=== PATIENT | male | born 1945 | race Caucasian/White ===

== ENCOUNTER 2024-09-20 08:33 | Inpatient (IN) | payer MEDICARE, SELFPAY ==
[2024-09-20] VITALS (102 sets, daily range): BP systolic 87–168; BP diastolic 50–135; PULSE 55–129; RESP 12–32; TEMP 36–37.1; O2SAT 83–100; BMI 22.1
--- NOTE | 2024-09-20 08:30 | DI.CT_ITS ---
Exam(s) CT ABDOMEN PELVIS CTA EXAM: CT ABDOMEN PELVIS CTA CLINICAL HISTORY: Post prandial abd pain, A-fib, ? mesenteric ischem. TECHNIQUE: Imaging Protocol: Axial CT angiography was performed with multi-slice acquisition and m ulti-planar and/or 3D reconstructions. CONTRAST MATERIAL: Intravenous: Omnipaque 350 Contrast volume:Approximately 40mL. Due to malfunctio n of the IV, a decreased amount of contrast was administered. The angiography phase of the examinati on is nondiagnostic as result. Oral: No COMPARISON: There are no priors for comparison. FINDINGS: ABDOMEN: Lung bases: There is mild pleural calcification posteriorly in the right hemithorax. No pulmonary no dules are seen in the lung bases. Liver: Normal density. No measurable mass. Portal, Superior Mesenteric, and Splenic Veins: There is suboptimal opacification. Gallbladder and Biliary Tract: No radiodense calculus or dilation. Pancreas: Normal density, no abnormal calcifications or inflammatory process. Spleen: There is a subtle area of decreased attenuation in the anterior aspect of the spleen. This m ay represent a cyst or hemangioma. Adrenals: No masses seen. Kidneys: Normal size, contour and axis. No radiodense stones or obstructive uropathy. No masses seen. Aorta: Atherosclerotic calcification is seen. No aneurysmal dilatation is seen. Bowel: There is concentric wall thickening in the proximal ascending colon measuring approximately 8 cm in length. The findings are suspicious for colorectal carcinoma. There is proximal cecal and small bowel dilatation consistent with obstruction. The distal colon is decompressed. There is no evidence of appendicitis. There is no evidence of pneumatosis. No portal venous gas is identified. Peritoneal Cavity: There is a tiny amount of free fluid in the pelvis. No free air. Lymph Nodes: Within normal limits. Bones: Within normal limits for the patient's age. Soft Tissues: There is a small fat containing left inguinal hernia. PELVIS: Bladder: Symmetric distention, no gross wall thickening. Reproductive Organs: The prostate gland appears mildly enlarged. Lymph Nodes: Within normal limits. Bones: Within normal limits. IMPRESSION: 1. The angiography portion of the examination was nondiagnostic secondary to bolus amounts and timing . 2. No abdominal aortic aneurysm. 3. 8 cm long concentric mass in the ascending colon most concerning for colorectal carcinoma. There is resultant obstruction present. 4. No evidence of pneumatosis or portal venous gas. 5. Findings were discussed with Dr. Harman on 09/20/2024. RADIATION DOSE DELIVERED: 484.24mGy.cm Total DLP DATA REPOSITORY: All CT scans at this facility are submitted to the National Radiology Data Registry (NRDR) Dose Index Registry (DIR) with the [employer] (A[employer]). RADIATION OPTIMIZATION: All CT scans at this facility use at least one of these dose optimization te chniques: automated exposure control; mA and/or kV adjustment per patient size (includes targeted exa ms where dose is matched to clinical indication); or iterative reconstruction.
--- NOTE | 2024-09-20 08:30 | RT.EKG_ITS ---
APPROVED REPORT Exam: Resting ECG Reason for Exam: Abd Pain Patient Location: E HR:110 bpm ECG Measurements Heart Rate 110 AXIS MT [id number] P [id number] QRSd 82 QRS 77 QT 344 T 19 QTc 466 Conclusion Atrial fibrillation, rate 110 No interval abnormalities No STEMI No priors available for comparison
--- NOTE | 2024-09-20 08:50 | ED.GENADUL_ITS ---
Discharge Plan Disposition Patient Disposition: Admit to [facility] Condition: Fair Discharge Details Chief Complaint: Abd Prob Clinical Impression: Bowel obstruction, Colonic mass Attending Provider: Carlin Mabry Primary Care Provider: None,None ED Provider: Viviana Wilkerson General Mode of arrival: EMS . Date/Time Provider Initiated Documentation: 09/20/24 08:39 . Limitations to Documentation: no limitations . Information obtained by: patient, EMS and old records reviewed . HPI Narrative: HPI: This is an 79-year-old male patient without significant past medical history, has not been to a physician in many years, takes no medications presenting for evaluation of abdominal pain. Reports that he has had abdominal pain intermittently for several years, but feels that it is worsened over the past few months. He notices that it is typically located in his lower abdomen, but when he eats he feels it up high. He has lost 20 to 30 pounds over the last few years. Reports that he is intermittently constipated and has diarrhea, last bowel movement approximately 1 week ago. Has not tried any medications for management of the symptoms. Endorses nausea but no vomiting, feels some burning urination. EMS noted the patient to be mildly tachycardic with an atrial fibrillation appreciated on telemetry, the patient does not have a history of same and does not take any blood thinning medications. He was otherwise hemodynamically appropriate during his transport. Exam: Gen: Awake and alert, in no apparent distress HEENT: Non-icteric sclera Neck: Supple Lungs: No apparent respiratory distress, normal respiratory effort. Lung sounds clear and equal CV: Appears well perfused, heart with irregularly irregular rhythm, no murmurs auscultated Abdomen: Non-distended, soft, non-tender to palpation without rigidity, rebound, or guarding. MSK: Moves 4 extremities without apparent limitation in ROM. No peripheral edema Skin: Visualized skin without rashes, cyanosis. Neuro: Normal Gait, no obvious focal deficits or facial asymmetry. Speaks in full, clear sentences. Psych: Appropriate for situation. MDM: This is a an 79-year-old male patient presenting for evaluation of abdominal pain. Differential includes but is not limited to gastroenteritis, gastritis/PUD, pancreatitis, hepatitis, cholecystitis, appendicitis, diverticulitis, bowel obstruction, mesenteric ischemia, aortic pathology. Also considered cardiac abnormalities including dysrhythmia such as this patient's atrial fibrillation. Considered metabolic electrolyte derangements, kidney injury. We obtained an EKG which I reviewed, which shows a atrial fibrillation with rapid ventricular response rate but no evidence of ischemia, interval abnormality or ectopy. We will obtain laboratory studies to include CBC, CMP, magnesium, lipase, lactate, and urinalysis. I will obtain a CTA abdomen and pe lvis. At this time the patient declines medications for pain or nausea. ED Course: I independently interpreted the laboratory studies, which show no significant leukocytosis or thrombocytopenia. The patient does have a microcytic anemia to 11.6 without priors available for comparison the chemistry panel is without evidence of electrolyte abnormality, kidney dysfunction, or liver injury. Troponin negative, lipase low, lactate 1.9. CT scan reviewed by myself and discussed with the radiologist, shows an ascending colonic mass concerning for malignancy, with associated obstruction. No evidence of pneumatosis or perforation, mesenteric ischemia scan unfortunately unable to be obtained due to contrast timing. I discussed the case with the general surgeon, who recommends NG tube placement, and admission for operative intervention. I made the patient n.p.o. and informed him of the findings and plan, he was transferred to the care of the general surgery team and remained hemodynamically appropriate while under my care. Viviana Wilkerson MD Related Data Home Medications ?Medication ?Instructions ?Recorded ?Confirmed Unknown [No Known Home Meds] 09/20/24 09/20/24 General Stated Complaint: Abd Prob SHAQ: 3 Course Vital Signs Vital signs: Vital Signs Temperature 36.1 C L 09/20/24 08:38 Pulse 112 H 09/20/24 08:38 Respiratory Rate 20 09/20/24 08:38 Blood Pressure 139/89 09/20/24 08:38 Pulse Oximetry 100 09/20/24 08:38 Temperature 36.2 C L 09/20/24 08:42 Temperature Source Oral 09/20/24 08:42 Pulse 102 H 09/20/24 08:42 Respiratory Rate 18 09/20/24 08:42 Blood Pressure 139/89 09/20/24 08:38 Blood Pressure Position Sitting 09/20/24 08:38 Pulse Oximetry 100 09/20/24 08:42 Oxygen Delivery Method Room Air 09/20/24 08:42 Oxygen Flow Rate 0 09/20/24 08:38 Pain Level 8 09/20/24 08:42 Comment no meds 09/20/24 08:38 Medical Decision Making Quality:SDOH Health Related Social Needs: No Data to Display PFSH All Active Problems (Updated 09/20/24 @ 14:06 by Viviana Wilkerson MD) Colonic mass (Acute) Bowel obstruction (Acute) Social History Smoking/Tobacco Use Status: Never Smoking risk assessment performed?: Yes Alcohol Intake: never Drug use: Never Substance use type: does not use Housing: house Do you feel safe at home: Yes Do you feel safe in your relationship?: Yes
[2024-09-20 09:04] LABS: Lactate 1.9 mmol/L (<or=2.0)
[2024-09-20 09:06] LABS: Abs Immature Grans 0.03 10^3/uL (0.0-0.06); Absolute Basophil Count 0.02 10^3/uL (0.0-0.2); Absolute Eosinophil Count 0.02 10^3/uL (0.0-0.7); Absolute Lymphocyte Count 1.02 10^3/uL (1.2-3.4); Absolute Neutrophil Count 4.44 10^3/uL (1.2-6.7); Basophils % 0.3 %; Eosinophils % 0.3 %; HCT 36.1 % (40.0-50.0); HGB 11.6 g/dL (13.5-17.5); Immature Grans % 0.5 %; Lymphocytes % 16.6 %; MCHC 32.1 % (32.0-36.0); MCV 75 fL (80-95); MPV 9.7 fL (8.0-11.0); Monocytes % 9.8 %; Neutrophils % 72.5 %; Platelet Count 280 10^3/uL (130-400); RBC 4.83 10^6/uL (4.36-5.78); RDW 22.2 % (11.8-14.1); RDW-SD 58.9 fL; WBC 6.13 10^3/uL (4.4-10.8)
[2024-09-20 09:16] LABS: INR 1.1 (0.9-1.1); Prothrombin Time 10.7 sec (9.1-11.1)
[2024-09-20 09:23] LABS: Anisocytosis 2+; Diff Comment RBC Morph Reviewed; Poikilocytes 2+
[2024-09-20 09:26] LABS: ALT 20 U/L (16-63); AST 22 U/L (15-37); Albumin 3.3 g/dL (3.4-5.0); Alkaline Phosphatase 103 U/L (46-116); Anion Gap 10.2 mmol/L (3-11); BUN 16 mg/dL (7-18); Bilirubin, Total 0.5 mg/dL (0.2-1.0); CO2 21.8 mmol/L (21.0-32.0); CREATININE 0.9 mg/dL (0.70-1.30); Calcium 9.7 mg/dL (8.5-10.1); Chloride 102 mmol/L (98-107); Estimated GFR 86.34 (mL/min/1.73m2); Glucose 114 mg/dL (74-106); Lipase 35 U/L (<78); Potassium 4.1 mmol/L (3.5-5.1); Sodium 134 mmol/L (136-145); Total Protein 6.7 g/dL (6.4-8.2); Troponin I 9 ng/L (<or=76)
[2024-09-20 10:20] LABS: Troponin I 7 ng/L (<or=76)
[2024-09-20] MEDS: Omnipaque 350 MG/ML 100 ML BTL IJ (10:30)
[2024-09-20] MEDS: Normal Saline - Diluent 50 ML VIAL IJ (10:33)
--- NOTE | 2024-09-20 11:36 | ANES.PREOP_ITS ---
General Info Date of Service Date Performed: 09/20/24 Height: 5 ft 7 in Weight: 64.1 kg Body Mass Index (BMI): 22.1 Meds Allergies and Home Medications Home Medication ?Medication ?Instructions ?Recorded Unknown [No Known Home Meds] 09/20/24 Current Visit Medications: Current Medications Generic Name Dose Route Start Last Admin Trade Name Freq PRN Reason Stop Dose Admin IV Miscellaneous Supplies 1 each 09/20/24 08:45 Iv Access-Emergency Dept IV DIRECTED ALEXEI Iohexol 100 ml 09/20/24 10:30 09/20/24 10:30 Omnipaque 350 Mg/Ml 100 Ml Btl IJ 10/20/24 23:59 100 ml DIRECTED ALEXEI Administration Sodium Chloride 0 ml 09/20/24 08:39 Normal Saline Flush 10 Ml Syr IVP PRN PRN Sodium Chloride 0 ml 09/20/24 20:00 Normal Saline Flush 10 Ml Syr IVP BID ALEXEI Sodium Chloride 0 ml 09/20/24 08:39 Normal Saline 10 Ml Vial IJ DIRECTED PRN Sodium Chloride 50 ml 09/20/24 10:45 09/20/24 10:33 Normal Saline - Diluent 50 Ml Vial IJ 50 ml .FOR DI USE ALEXEI Administration PFSH Tobacco Smoking/Tobacco Use Status: Never Alcohol Alcohol Intake: never Substance Use Substance use: Never Substance use type: does not use Vital Signs and Lab Results Vital Signs Most Recent Vital Signs in EMR: Most Recent Vital Signs Temp Pulse Resp BP Pulse Ox 36.2 C L 94 H 19 128/77 97 09/20/24 08:42 09/20/24 09:50 09/20/24 09:50 09/20/24 09:46 09/20/24 09:50 Lab Results 09/20/24 08:52 09/20/24 08:52 Blood Type / Crossmatch: 2 Antibody Screen Pending 09/20/24 Complete Blood Count: 2 White Blood Count 6.13 10^3/uL (4.4-10.8) 09/20/24 08:52 Red Blood Count 4.83 10^6/uL (4.36-5.78) 09/20/24 08:52 Hemoglobin 11.6 g/dL (13.5-17.5) L 09/20/24 08:52 Hematocrit 36.1 % (40.0-50.0) L 09/20/24 08:52 Platelet Count 280 10^3/uL (130-400) 09/20/24 08:52 Venous Blood Lactate 1.9 mmol/L (<or=2.0) 09/20/24 08:52 Complete Metabolic Panel: 2 Sodium 134 mmol/L (136-145) L 09/20/24 08:52 Potassium 4.1 mmol/L (3.5-5.1) 09/20/24 08:52 Chloride 102 mmol/L (98-107) 09/20/24 08:52 Carbon Dioxide 21.8 mmol/L (21.0-32.0) 09/20/24 08:52 BUN 16 mg/dL (7-18) 09/20/24 08:52 Creatinine 0.9 mg/dL (0.70-1.30) 09/20/24 08:52 Est GFR (CKD-EPI 2020) 86.34 (mL/min/1.73m2) 09/20/24 08:52 Magnesium 2.0 mg/dL 09/20/24 08:52 Calcium 9.7 mg/dL (8.5-10.1) 09/20/24 08:52 Albumin 3.3 g/dL (3.4-5.0) L 09/20/24 08:52 Glucose 114 mg/dL (74-106) H 09/20/24 08:52 Liver Function Panel: 2 Alanine Aminotransferase (ALT/SGPT) 20 U/L (16-63) 09/20/24 08: 52 Aspartate Amino Transf (AST/SGOT) 22 U/L (15-37) 09/20/24 08:52 Coagulation Panel: 2 INR International Normalized Ratio 1.1 (0.9-1.1) 09/20/24 08:5 2 Prothrombin Time 10.7 sec (9.1-11.1) 09/20/24 08:52 Cardiac Panel: 2 Troponin I 7 ng/L (<or=76) 09/20/24 Arterial Blood Gas: 2 No Data to Display Venous Blood Gas: 2 No Data to Display Pancreas Panel: 2 Lipase 35 U/L (<78) 09/20/24 08:52 Thyroid Panel: 2 No Data to Display Infectious Disease: 2 No Data to Display Blood Cultures: 2 No Data to Display Toxicology Panel: 2 No Data to Display Anesthesia Assessment and Plan Anesthesia History Personal History: No History of Anesthesia Complications Family History: No Family History of Anesthesia Complications Exercise Tolerance Exercise Tolerance: Metabolic Equivalents>4 Cardiac & Pulmonary Exam Cardiac Exam: Normal S1/S2 Heart Sounds Pulmonary Exam: Clear Bilateral Breath Sounds Implantable Cardiac Device Does patient have a Pacemaker or an ICD?: No Airway Exam Known Difficult Airway: No Mallampati Class: 2 Mouth Opening: Normal (> 3cm) Thyromental Distance: Greater than 3 cm Neck Range of Motion: Limited ROM Neck Circumference: Normal Teeth Condition: Generalized Poor Dentition and Loose or Chipped ASA Classification ASA Score: ASA 2 Emergency Case?: Yes NPO Status NPO Status: Full Stomach Anesthesia Plan Resuscitation Status: Full Code Anesthesia Technique: General Anesthesia Airway Planned: Endotracheal Tube Pain Management: Surgeon and patient request nerve block (rescue abd wall block. ) Monitors Used: Standard Monitors Preoperative Comments:: 79 yo male for exp laparoscopy/laparotomy. Sig PMHx: denies. Does not seek medical care routinely. States that he is in functionally good condition, can go up and down stairs without issues/chest pain/shortness of breath. EKG: AFib. Discussed plan for GAETT, +/- rescue regional anesthesia.
--- NOTE | 2024-09-20 13:12 | W.PM.HP.N ---
Date of service: 09/20/24 Time of Service: 13:12 Assessment and Plan Assessment and plan (1) Bowel obstruction: Status: Acute Assessment and plan: Jitendra and I had a honest discussion about his overall condition, and the findings of the CT scan, and concern for colon cancer. He is very clear that he would not pursue any type of chemotherapy if this was cancer. His primary interest is in palliative treatments to resolve his abdominal pain and the symptoms associated with his obstruction. I explained to him that the simplest option would be a diverting ileostomy with permanent stoma. Obviously has some major reservations about a stoma and would prefer to avoid that if at all possible. I did explain that that would be the simplest treatment for his obstruction, and the most efficient option to preserve quality of life after surgery. But I also explained that if conditions are favorable, and I can resect or bypass the tumor and avoid a stoma, then that might be a possibility. But he does understand that a stoma is a very real possibility in this situation. We reviewed multiple surgical scenarios in detail, and I will try to be as thoughtful as possible regarding his overall wishes, would I made clear to him that my primary intent is to relieve the symptoms of his obstruction and preserve as many options for treatments, or end-of-life treatments in the most humane way possible. History of Present Illness History of Present Illness Chief Complaint: Abdominal pain Narrative: Jitendra is 79 years old. He comes to the emergency department with increasing abdominal pain over the past 2 weeks. More recently, has had total loss of appetite, and sensation of early satiety. He does not recall having any bowel movements or passing any flatus over the past 2 days or so. His past medical history unknown as he does not follow-up with any primary care physicians. In the emergency department, he was found to have a microcytic anemia, and a tender distended abdomen. He underwent a CT scan that demonstrated complete bowel obstruction with dilated small intestine, and concerns for an obstructing ascending colon mass with features concerning for colon cancer. He tells me he had a tonsillectomy as a child, but no other surgeries. He is not aware of any allergies. Family history includes a brother with schizophrenia Review of Systems Constitutional Constitutional: Denies fever(s), Reports lethargy, Reports poor appetite, Reports weakness and Reports weight loss Eyes Eyes: Reports system reviewed and no additional complaints, except as documented ENT Ears, Nose, Mouth, and Throat: Reports system reviewed and no additional complaints, except as documented Cardiovascular Cardiovascular: Denies chest pain and Denies dyspnea Respiratory Respiratory: Denies chest congestion, Denies cough and Denies dyspnea Gastrointestinal Gastrointestinal: Reports abdominal pain, Denies belching, Reports bloating, Reports early satiety, Denies nausea and Denies vomiting Genitourinary Genitourinary: Reports system reviewed and no additional complaints, except as documented Neurologic Neurologic: Reports system reviewed and no additional complaints, except as documented and Reports weakness Hematologic/Lymphatic Hematologic/Lymphatic: Denies easy bleeding and Denies easy bruising PFSH All Active Problems (Updated 09/20/24 @ 13:17 by Carlin Mabry MD) Bowel obstruction (Acute) Social History Smoking/Tobacco Use Status: Never Smoking risk assessment performed?: Yes Alcohol Intake: never Drug use: Never Substance use type: does not use Housing: house Do you feel safe at home: Yes Do you feel safe in your relationship?: Yes Meds Allergies and Home Medications Home Medications ?Medication ?Instructions ?Recorded ?Confirmed ?Type Unknown [No Known Home Meds] 09/20/24 09/20/24 History Exam Const General: cooperative, frail appearing and ill appearing Nutritional Appearance: malnourished Orientation: alert, awake and oriented x3 HENMT Head: normal to inspection Resp Effort & Inspection: normal respiratory effort Auscultation: clear to auscultation bilaterally Cardio Jugular venous pressure: no JVD Rhythm: other (Atrial fibrillation) Heart Sounds: S1 normal and S2 normal GI Inspection: distended Palpation: no guarding and no hernias Percussion: tympanic to percussion Auscultation: abnormal bowel sounds Extrem Right lower extremity: no cyanosis and no edema Left lower extremity: no cyanosis and no edema Results Imaging Abdomen CT scan report/results: report reviewed and image reviewed CT scan - pelvis: report reviewed and image reviewed Labs 09/20/24 08:52 09/20/24 08:52 Labs: Laboratory Results - last 24 hr 09/20/24 09/20/24 09/20/24 08:52 09:52 11:40 WBC 6.13 RBC 4.83 Hgb 11.6 L Hct 36.1 L MCV 75 L MCH 24.0 L MCHC 32.1 RDW 22.2 H Plt Count 280 MPV 9.7 Immature Gran % 0.5 Neutrophils % 72.5 Lymphocytes % 16.6 Monocytes % 9.8 Eosinophils % 0.3 Basophils % 0.3 Nucleated RBC % 0.0 Absolute Neutrophils 4.44 Absolute Lymphocytes 1.02 L Absolute Monocytes 0.60 Absolute Eosinophils 0.02 Absolute Basophils 0.02 RBC Morphology See Below Poikilocytosis 2+ Anisocytosis 2+ PT 10.7 INR 1.1 VBG Lactate 1.9 Sodium 134 L Potassium 4.1 Chloride 102 Carbon Dioxide 21.8 Anion Gap 10.2 BUN 16 Creatinine 0.9 Est GFR (CKD-EPI 2020) 86.34 Glucose 114 H Calcium 9.7 Magnesium 2.0 Total Bilirubin 0.5 AST 22 ALT 20 Alkaline Phosphatase 103 Troponin I 9 7 Cancelled Total Protein 6.7 Albumin 3.3 L Lipase 35 Last Vital Signs Temp 97.2 F L 09/20/24 08:42 Pulse 94 H 09/20/24 09:50 Resp 19 09/20/24 09:50 BP 128/77 09/20/24 09:46 Pulse Ox 97 09/20/24 09:50 Time Spent Time spent with Patient: 55-74 minutes Time was spent: preparing to see the patient(eg.review tests), obtaining and/or reviewing separately otained hiistory, referring, communicating with other health continuum of care manager, indepentently interpreting results, counseling the patient and care coordination
[2024-09-20] MEDS: Benzocaine 20% 60 ML CAN (13:15)
[2024-09-20] MEDS: Lactated Ringers 1,000 ML 30 ML IV ×2 (13:31→17:05)
[2024-09-20] MEDS: Heparin 5,000 UNITS/ML VIAL 5000 UNITS (13:50)
[2024-09-20] MEDS: Bupivacaine 0.25% Pres-Free 30 ML VIAL (14:40)
[2024-09-20] MEDS: Bupivacaine LIPOSOME/PF 133 MG/10 ML VIAL IJ (14:40)
--- NOTE | 2024-09-20 15:30 | BOWEL_PTH ---
PATIENT: Jitendra Madera LOC: U#:[id number] AGE/SX: 79/M ROOM: RE09/20/[address]: Carlin Mabry MD : 1945 BED: A DIS: 10/02/2024 SPEC #: [id number] RECD: 09/20/24 18:23 STATUS: SOUConrad REQ #: [id number] MARJ: 09/20/24 15:[address]: Carlin Mabry DEPT: Surgical Specimen RECD BY: Tish Lomeli ENTERED: 09/20/24 18:23 SP TYPE: Bowel OTHR DR: None Tissues: 1 - BOWEL RESECTION(OTHER) Procedures: IMMUNOPEROXIDASE STAIN GROSS AND MICRO LEVEL 6 Comments: [id number]
--- NOTE | 2024-09-20 16:32 | W.PM.OP ---
Operative Note Operative Note PRE-OP DIAGNOSIS: Bowel obstruction POST-OP DIAGNOSIS: other (Large bowel obstruction concerning for colon cancer) PROCEDURE: Diagnostic laparoscopy, laparotomy with right hemicolectomy SURGEON: Carlin Mabry ESTHETICIAN AND MANAGER MEDICAL SPA: Familia Perez Refer to Anesthesia Record ESTIMATED BLOOD LOSS: 75 PATHOLOGY: other (Ascending colon) COMPLICATIONS: None Patient was transported to: PACU Patient's condition: stable Indications: Jitendra is an 79-year-old male comes to the hospital with abdominal pain. CT scan was concerning for complete bowel obstruction with a possible mass in the ascending colon Findings: Chronically dilated small bowel consistent with complete small bowel obstruction. Mass in the ascending colon Procedure Description: I met with Jitendra in the preoperative area, we reviewed the plan for surgery. He was able to provide informed consent. We moved back to the operating room, and he was assisted onto the OR table. General endotracheal anesthesia was initiated. The previously placed nasogastric tube was exchanged for a larger tube, and a Figueroa urinary catheter was inserted in the usual aseptic manner. I then prepped and draped the anterior abdominal wall. I made a small midline incision above the umbilicus and dissected down to the fascia which was grasped with Bina clamps. The fascia was incised, and a 5 mm optical viewing port was inserted into the peritoneal cavity. 5 mm 30 degree scope was introduced, pneumoperitoneum was established. Visualization was extremely limited by the massively dilated small bowel, which precluded definitive diagnostic laparoscopy. However, I was able to visualize some of the right lobe of the liver, and I saw no evidence of any obvious pathology. Similarly, I was able to see the left lobe as well. And this grossly appeared normal. A limited view of the peritoneal wall did not seem consistent with any carcinomatosis, therefore elected to terminate the laparoscopic portion, proceed with definitive exploratory laparotomy with intent for therapeutic operation. I removed a 5 mm port and made a midline abdominal incision. The majority of the small bowel was eviscerated, but despite this being out of the peritoneal cavity, it was still nearly impossible to safely see all the critical structures. I was able to palpate what felt like a mass in the area of the cecum and the ascending colon, which seem consistent with the CT scan, and certainly appeared to be obstructing with regards to the dilation of the small intestine. At that point, it was clear that I needed to decompress the small intestine to proceed with the operation. I was able to palpate the nasogastric tube in the appropriate location, and this was affixed in place. Since the source of the pathology seems to be in the cecum and the ascending colon, I selected an area in the terminal ileum to create an enterotomy. A pursestring suture was placed on the antimesenteric border, and in a controlled fashion, small enterotomy was made. Suction was introduced into the terminal ileum, and the succus was evacuated. With his much control over any spillage is possible, and then milked the entire length of the small intestine to evacuate all of the retained succus. The suction was removed, the pursestring suture was used to close the enterotomy. Once the small intestine was decompressed, it was clear that there was mass in the ascending colon causing the obstruction. I mobilized the terminal ileum and the ascending colon. Although the lumen of the ascending colon seem to be completely obstructed, I did not see any obvious signs of perforation, and as the ascending colon was mobilized towards the midline, the tumor appeared to be contained to the wall of large intestine, and perhaps just a little bit of the mesentery. The small bowel was mobilized up around the hepatic flexure to the mid transverse. Superior mesenteric artery was palpated, into position along the transverse colon was selected as the distal margin. This was divided with a MARTHA stapler. Similarly, the terminal ileum was divided to include the previously mentioned enterotomy and the specimen. The mesentery was then divided with sequential fires of the LigaSure. The right colic artery was suture-ligated. Once the specimen was divided free, it was passed off the field for preservation in formalin and definitive pathologic diagnosis. Surgical bed was irrigated. It was all hemostatic. The right ureter was visualized well within the retroperitoneum. Next, the small bowel was gently delivered back to its normal orientation, and the ileum was brought up to the mid transverse colon. It appeared that a [id number] antiperistaltic anastomosis would be most favorable with regards to his anatomy. The antimesenteric borders of the small intestine and the transverse colon were aligned and affixed in place with suture. I created a small enterotomy and colotomy, and a MARTHA stapler was used to create the ileocolostomy. The anastomosis appeared widely patent, and I saw no evidence of any obvious bleeding. The common ileal-colotomy was then closed with a running 3-0 PDS suture on the mucosal line, and imbricated with interrupted silk stitches. Again, the field was irrigated. I saw no bleeding. The small bowel appeared appropriately oriented with regards to the mesentery. I then performed bilateral tap blocks using local anesthetic with Exparel. I then closed the fascia with running 2-0 PDS suture. Skin and subcutaneous tissues were irrigated. Skin was reapproximated with surgical stapler, and a negative pressure rebekah dressing was used. Date of Procedure: 09/20/24
--- NOTE | 2024-09-20 16:57 | W.ANESPOSTOP ---
Postoperative Evaluation Date, Time and Location Date Performed: 09/20/24 Time Performed: 16:57 Patient Location: PACU Vital Signs Most Recent Imported Vital Signs: Most Recent Vital Signs Temp Pulse Resp BP Pulse Ox 36.5 C 67 20 104/65 97 09/20/24 16:51 09/20/24 16:53 09/20/24 16:53 09/20/24 16:51 09/20/24 16:53 Pain Score Most Recent Pain Score: Most Recent Pain Score Pain Level 8 09/20/24 08:42 Assessment Mental Status: Arousable with meaningful communication Airway and Respiratory Function: Patent airway with normal (patient baseline) respiratory exam Cardiovascular Function: Hemodynamically Stable Hydration Status: Adequately Hydrated Nausea & Vomiting: No Nausea or Vomiting Pain: Pain is tolerable per patient Peripheral Nerve Block: Patient did not receive a nerve block
[2024-09-20] MEDS: HYDROmorphone 2 MG/ML SYR 1 MG IVP ×2 (18:17→23:36)
[2024-09-20] MEDS: Lactated Ringers 1,000 ML 75 ML IV (22:03)
[2024-09-20] MEDS: ACETAMINOPHEN 1,000 MG/100 ML BAG 400 MG IVPB (22:03)
[2024-09-20] MEDS: Heparin 5,000 UNITS/ML VIAL 5000 UNITS SC (22:04)
[2024-09-21] VITALS (13 sets, daily range): BP systolic 80–119; BP diastolic 49–82; PULSE 67–118; RESP 16–20; TEMP 36.5–37.2; O2SAT 95–99
[2024-09-21] MEDS: Metoprolol 5 MG/5 ML VIAL 2.5 MG IVP ×2 (00:24→13:20)
[2024-09-21 06:06] LABS: HCT 35.8 % (40.0-50.0); HGB 11.3 g/dL (13.5-17.5); MCH 23.9 pg (27.0-33.0); MCHC 31.6 % (32.0-36.0); Platelet Count 237 10^3/uL (130-400); RBC 4.73 10^6/uL (4.36-5.78); RDW-SD 61.2 fL; WBC 13.77 10^3/uL (4.4-10.8)
[2024-09-21 06:14] LABS: Anion Gap 8.8 mmol/L (3-11); BUN 15 mg/dL (7-18); CO2 25.2 mmol/L (21.0-32.0); CREATININE 0.9 mg/dL (0.70-1.30); Calcium 8.6 mg/dL (8.5-10.1); Chloride 106 mmol/L (98-107); Estimated GFR 86.34 (mL/min/1.73m2); Glucose 119 mg/dL (74-106); Potassium 4.8 mmol/L (3.5-5.1); Sodium 140 mmol/L (136-145)
[2024-09-21 06:52] LABS: MCV 76 fL (80-95)
[2024-09-21 06:54] LABS: RDW 22.5 % (11.8-14.1)
[2024-09-21] MEDS: ACETAMINOPHEN 1,000 MG/100 ML BAG 400 MG IVPB ×3 (07:22→21:32)
--- NOTE | 2024-09-21 09:01 | PDOC.CMIN ---
Date of service: 09/21/24 Time of Service: 09:01 Care Management Initial Assmt Initial Assessment Reason for Hospitalization: Bowel Obstruction Functional Status/Living Situation Patient Presentation: Jitendra was sitting up in a chair when CM met with him. He was pale and had a nasogastric tube in place, but willingly engaged with CM. Jitendra informed CM that he had surgery yesterday for a bowel obstruction. A tumor was removed and has been sent to pathology for further studies to determine if it is a malignancy. Jitendra stated that his pain is well controlled. He rated it as a 1-2/10 and stated that the worst it has been was about a 5/10. Jitendra lives alone in a single family home in [facility]. He has one daughter however he reported that they are not close. Jitendra described himself as an introvert who keeps to himself. He has no close fiends or relatives in the area. 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 He is independent at baseline and does not receive any community services. In discussing his plan of care, Jitendra informed that if he does have cancer, he does not want chemotherapy. He stated that at his age (79) it would not improve the quality of his life. He also stated that if he has metastatic disease he would consider pursuing Act 39. Town of Residence: [place] Resides with: Alone Natural Supports: sister Cassi Employment Status: Retired Instrumental Activities of Daily Living (ADLs): Independent Medications Medication Management: No Issues/Barriers identified Physical Functioning/Mobility Assistive Device: none Advance Directives Advance Directives: Do you have an Advance Directive: AD On File at [facility]: N 09/20/24 08:27 Date Asked 09/20/24 09/20/24 08:35 AD Date Reviewed COLST On File at [facility] COLST Date Scanned Code Status Resuscitation Status Full Code Portal Pt does not currently have a portal and education provided: Yes Insurance Coverage/Financial Issues Insurance: medicare [facility] Care Team Visit Care Team Role Provider Type None None Primary Care Provider NON-[facility] STAFF PHYSICIAN Viviana Wilkerson MD Emergency Provider [facility] STAFF PHYSICIAN Carlin Mabry MD Admit Provider [facility] STAFF PHYSICIAN Attending Provider Discharge Potential Discharge Needs: Surgical F/U Appt Anticipated Barriers to Discharge: None Identified Patient/Family Education Needs: Review discharge instructions, discuss Ask Me Three Transportation: Private vehicle Plan: Anticipate Jitendra will return home when discharged , possibly with new home health services, depending on his surgery and the course of his illness. He may benefit from a Palliative Care consult. He will follow up with surgery and his plan of care and transport with family. CM will follow and continue to assess for discharge needs. Social Determinants of Health Screening Will the Patient Participate in the Screening?: Unable to obtain Do you worry about having a steady place to live?: no PFSH All Active Problems (Updated 09/20/24 @ 14:06 by Viviana Wilkerson MD) Colonic mass (Acute) Bowel obstruction (Acute) Social History Smoking/Tobacco Use Status: Never Smoking risk assessment performed?: Yes Alcohol Intake: never Drug use: Never Substance use type: does not use Housing: house Do you feel safe at home: Yes Do you feel safe in your relationship?: Yes
[2024-09-21] MEDS: Heparin 5,000 UNITS/ML VIAL 5000 UNITS SC ×2 (09:39→20:28)
[2024-09-21] MEDS: Normal Saline Flush 10 ML SYR IVP ×4 (09:39→17:04)
[2024-09-21] MEDS: HYDROmorphone 2 MG/ML SYR 1 MG IVP ×3 (09:52→22:36)
--- NOTE | 2024-09-21 11:11 | PGE_ITS ---
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 Given the chronic dilation of his small bowel leading up to this my preference is to leave the nasogastric tube in place today, and see how that changes over the next day. And like to see him up to the chair moving around a little bit today. He is still in atrial fibrillation, but appears rate controlled. Will use metoprolol as best we can to help manage that. I will hold off on therapeutic anticoagulation at the moment given the extent of his operation, but I am op timistic that we could start that soon to help with stroke risk reduction. Subjective Subjective Interval history since last seen: Jitendra looks very good this morning. He says his pain is fairly well- controlled. He denies any nausea or vomiting. He has had no bowel movement or flatus yet. There is also not much coming out of the nasogastric tube. Exam GI Other: His abdomen is soft, and not at all distended. He does not have any major bowel sounds yet. Rachel dressing is fine. Objective Last Vital Signs Temp 97.9 F 09/21/24 10:40 Pulse 98 H 09/21/24 10:40 Resp 16 09/21/24 10:40 BP 99/59 L 09/21/24 08:21 Pulse Ox 95 09/21/24 08:21 Laboratory Results - last 24 hr 09/20/24 09/21/24 12:18 05:35 WBC 13.77 H RBC 4.73 Hgb 11.3 L Hct 35.8 L MCV 76 L MCH 23.9 L MCHC 31.6 L RDW 22.5 H Plt Count 237 MPV 10.0 Sodium 140 Potassium 4.8 Chloride 106 Carbon Dioxide 25.2 Anion Gap 8.8 BUN 15 Creatinine 0.9 Est GFR (CKD-EPI 2020) 86.34 Glucose 119 H Calcium 8.6 ABO/Rh O Positive Antibody Screen NEGATIVE Time Spent with Patient Time Spent with Patient: 25-34 minutes Time was spent: preparing to see the patient(eg.review tests), indepentently interpreting results and counseling the patient
[2024-09-21] MEDS: Lactated Ringers 1,000 ML 75 ML IV ×2 (11:35→21:32)
--- NOTE | 2024-09-21 14:00 | PHA.REVIEW2 ---
Pharmacy Admission Review Admission Clinical Review Admission Pharmacy Review: Bowel obstruction (Acute) No Known Allergies Allergy (Unverified 09/21/24 02:21) Resuscitation Status Full Code Height 5 ft 7 in Weight 64.1 kg Comments Comments/Follow Ups: Watch BP, HS, labs and for med changes (possible renal dose adjustments, IV to PO once pt is no longer NPO). Pharmacy Admission Review Renal Dosing Renal Dosing: BUN 15 mg/dL (7-18) 09/21/24 05:35 Creatinine 0.9 mg/dL (0.70-1.30) 09/21/24 05:35 Medications needing adjustments: Reviewed (Crcl ~59 mL/min current meds are okay) Anticoagulation Anticoagulation: Hgb 11.3 g/dL (13.5-17.5) L 09/21/24 05:35 Hct 35.8 % (40.0-50.0) L 09/21/24 05:35 Plt Count 237 10^3/uL (130-400) 09/21/24 05:35 INR 1.1 (0.9-1.1) 09/20/24 08:52 Creatinine 0.9 mg/dL (0.70-1.30) 09/21/24 05:35 DVT Prophylaxis: Reviewed Medications: Heparin Opiate Usage Evaluate Pain Scale/Pains Meds: Reviewed Scheduled Bowel Reg ordered if on Opiates?: No Relevant Labs Relevant Labs: Sodium 140 mmol/L (136-145) 09/21/24 05:35 Potassium 4.8 mmol/L (3.5-5.1) 09/21/24 05:35 Chloride 106 mmol/L (98-107) 09/21/24 05:35 Magnesium 2.0 mg/dL 09/20/24 08:52 Electrolytes, C-Reactive P, ESR: Reviewed DM Control DM Control: Glucose 119 mg/dL (74-106) H 09/21/24 05:35 DM Control: Reviewed Insulin Dosing, Diabetic Medication: no DM in medical history, no A1c on file Cardiac Review Cardiac Review: Troponin I Cancelled 09/20/24 11:40 BP, HR, EF%: Reviewed (BP has been normal to low today and HR normal to high) QTc Review QTc: Reviewed (QTc 466 on admission) IV to PO Switch IV Medications: Reviewed (pt is currently NPO) Home Meds Home Med List reviewed: Reviewed (no known home meds ) Current Meds Current Medication Order Review: Intervened (Discontinued PACU meds as the patient was no longer in the PACU.) Comments Comments/Follow Ups: Watch BP, HS, labs and for med changes (possible renal dose adjustments, IV to PO once pt is no longer NPO).
[2024-09-21 17:49] LABS: CEA 1.1 ng/mL (See Note)
[2024-09-21] MEDS: Lactated Ringers 1,000 ML 1000 ML IV (17:55)
[2024-09-22] VITALS (14 sets, daily range): BP systolic 97–114; BP diastolic 56–82; PULSE 63–126; RESP 20; TEMP 36.1–36.8; O2SAT 93–95
[2024-09-22] MEDS: ACETAMINOPHEN 1,000 MG/100 ML BAG 400 MG IVPB ×3 (05:49→21:46)
[2024-09-22] MEDS: HYDROmorphone 2 MG/ML SYR 1 MG IVP ×3 (05:50→17:28)
[2024-09-22 06:42] LABS: HCT 33.8 % (40.0-50.0); HGB 10.5 g/dL (13.5-17.5); MCHC 31.1 % (32.0-36.0); MCV 77 fL (80-95); MPV 10.5 fL (8.0-11.0); Platelet Count 194 10^3/uL (130-400); RBC 4.38 10^6/uL (4.36-5.78); RDW 23.2 % (11.8-14.1); RDW-SD 63.8 fL; WBC 10.13 10^3/uL (4.4-10.8)
[2024-09-22 06:54] LABS: Anion Gap 5.2 mmol/L (3-11); BUN 16 mg/dL (7-18); CO2 28.8 mmol/L (21.0-32.0); CREATININE 0.9 mg/dL (0.70-1.30); Calcium 8.7 mg/dL (8.5-10.1); Chloride 104 mmol/L (98-107); Estimated GFR 86.34 (mL/min/1.73m2); Glucose 83 mg/dL (74-106); Potassium 4.2 mmol/L (3.5-5.1); Sodium 138 mmol/L (136-145)
[2024-09-22] MEDS: Heparin 5,000 UNITS/ML VIAL 5000 UNITS SC ×2 (08:12→19:45)
[2024-09-22] MEDS: Normal Saline Flush 10 ML SYR IVP (08:12)
[2024-09-22] MEDS: Lactated Ringers 1,000 ML 75 ML IV ×2 (09:09→20:46)
[2024-09-22] MEDS: Metoprolol 5 MG/5 ML VIAL 2.5 MG IVP ×2 (11:48→17:34)
--- NOTE | 2024-09-22 12:45 | PDOC.CMPRO ---
Date of service: 09/22/24 Time of Service: 12:45 Care Management Progress Note Progress Note Text Progress Note Text: Jitendra is awake and lying in bed when CM met with him. He had just missed a call on his cell and asked CM for help finding his glasses. His glasses were located, no immediate concerns were identified and pt is advised CM will check back at a later time. Palliative consult is planned for this afternoon to discuss goals of care. Jitendra is s/p right hemicolectomy; he currently has a NG tube, Rachel drain and expected to be here through the weekend. CM will follow. Discharge Potential Discharge Needs: Consult Consult Services Needed: Palliative and Surgical F/U Appt Anticipated Barriers to Discharge: Medical Status Patient/Family Education Needs: Review discharge instructions, discuss Ask Me Three Transportation: Private vehicle Plan: Palliative Care Consult is pending to discuss goals of care due to presumed 'obstructing colon cancer'. Anticipate, Jitendra will return home when medically ready for discharge, possibly with new home health services, depending his goals of care and course of his illness. He will follow up with surgery and his plan of care and transport with family. CM will follow and continue to assess for discharge needs. Social Determinants of Health Screening Will the Patient Participate in the Screening?: Unable to obtain Do you worry about having a steady place to live?: no
--- NOTE | 2024-09-22 13:05 | NUR.NOTE ---
Documentation completed by Marianne Tarango, nursing staff development coordinator reviewed and in agreement. Christiana Jiménez, MSN, RNC-OB (clinical instructor)
--- NOTE | 2024-09-22 14:54 | W.PALLCONSUL ---
Date of service: 09/22/24 Time of Service: 14:54 History of Present Illness Narrative: Jitendra was seen in his hospital room. He presented to the ED via EMS for abdominal pain and was found to have an obstructing colon mass. He underwent R hemicolectomy 2 days ago. He currently has NG tube in place. He is NPO. He has pain r/t the surgery but different than the pain before. Palliative was consulted at his request. Reviewed what Palliative can offer. He does not have AD. He does not have a lot of people in his life. He prefers solitude. He has a younger brother, Mayito, who lives in [place] and has Schizophrenia. He keeps in touch with his brother. He clearly worries about Mayito's wellbeing. He has a sister, Cassi also lives in [place]. They were closer but Cassi gets mad at him and does not talk to him at times. He heard from Mayito that Cassi seems more forgetful. He worries about her ability to make decisions for him. Cassi was an RN. He has some neighbors but he does not know them well and feels they are also elderly. He cannot think of someone he would want to name to be his HCA. He lives alone in [place] [facility]. His house has been unfinished for years. He has to go downstairs to the basement to get water. His shower is also downstairs. He wishes to remain in his home. He does not want to go to SNF, even for rehab, he fears he would never be able to go home. He is open to working with PT. He is open to HH after discharge home. He will need RN and would also likely benefit from PT/OT/AIRPLANE CHARTER CLERK. COA may be helpful to him as well- there may be grants to help with getting systems to the living floor in his home so he does not have to go to the basement. Reviewed CODE STATUS. At this point, he thinks he wants attempts to restart his heart. Reviewed AD. He would like to look over the forms and complete in the near future. He is agreeable to Palliative f/u. Prior to this admission, he was experiencing bowel problems including diarrhea and constipation. He was only able to eat small amounts. He had severe abd pain every time he ate anything. He also had nausea but this has improved since the surgery. He lost about 20# over the last couple of months. He was getting weaker and having more difficulty getting around . Assessment and Plan Assessment and plan (1) Colonic mass: Status: Acute (2) Bowel obstruction: Status: Acute (3) Status post right hemicolectomy: Status: Acute (4) Advanced care planning/counseling discussion: Status: Acute (5) Palliative care patient: Status: Acute Assessment and plan: Jitendra is a very pleasant 79 year old man who presented to the ED with abdominal pain and weight loss and was found to have colon mass, now post R hemicolectomy with NG tube in place. He is clear that he does not intend to undergo cancer treatment if the Bx comes back positive for malignancy. He lives alone and does not have a lot of people in his life. He has kept to himself for many years. He has a sister who he is worried may be developing dementia and a brother with Schizophrenia. He has neighbors but does not know any of them well enough to have them be HCA. He is not sure he has anyone that he would name as HCA. He wants to do AD- he preferred to look over the AD first then go through it together. He wants to be a FULL CODE at this point. He does not want SNF. He is open to HH. He would benefit from RN/PT/OT/AIRPLANE CHARTER CLERK and COA referral. He is agreeable to continuing to work with Palliative. Palliative will continue to follow him while he is in the hospital and after discharge home. He will need HV. f/u next week inpatient or at home. Review of Systems Narrative: PER HPI PFSH All Active Problems (Updated 09/22/24 @ 16:32 by Desirae Philippe NP) Advanced care planning/counseling discussion (Acute) Palliative care patient (Acute) Status post right hemicolectomy (Acute) Colonic mass (Acute) Bowel obstruction (Acute) Social History Smoking/Tobacco Use Status: Never Smoking risk assessment performed?: Yes Alcohol Intake: never Drug use: Never Substance use type: does not use Housing: house Do you feel safe at home: Yes Do you feel safe in your relationship?: Yes Exam Narrative Exam Narrative: General: very pleasant, thin, elderly man, laying in the hospital bed with HOB elevated. He is awake, alert, oriented, open and talkative. HEENT: atraumatic, NG tube with dark drainage. Neck: supple Respiratory: respirations appear even and unlabored at rest. Ext: moves extremities freely. Results Last Vital Signs Temp 36.1 C L 09/22/24 07:19 Pulse 92 H 09/22/24 12:18 Resp 20 09/22/24 07:19 BP 103/74 09/22/24 12:18 Pulse Ox 98 09/21/24 19:26 Labs 09/22/24 05:48 09/22/24 05:48 Labs: Laboratory Results - last 24 hr 09/21/24 09/22/24 05:35 05:48 WBC 10.13 RBC 4.38 Hgb 10.5 L Hct 33.8 L MCV 77 L MCH 24.0 L MCHC 31.1 L RDW 23.2 H Plt Count 194 MPV 10.5 Sodium 138 Potassium 4.2 Chloride 104 Carbon Dioxide 28.8 Anion Gap 5.2 BUN 16 Creatinine 0.9 Est GFR (CKD-EPI 2020) 86.34 Glucose 83 Calcium 8.7 Carcinoembryonic Ag 1.1 Time Spent Time Spent with Patient Time Spent(min): 126
[2024-09-23] VITALS (13 sets, daily range): BP systolic 95–115; BP diastolic 55–76; PULSE 102–141; RESP 17–20; TEMP 36.5–36.9; O2SAT 93–98
[2024-09-23] MEDS: ACETAMINOPHEN 1,000 MG/100 ML BAG 400 MG IVPB ×2 (06:10→13:54)
[2024-09-23] MEDS: Heparin 5,000 UNITS/ML VIAL 5000 UNITS SC ×2 (09:04→22:38)
[2024-09-23] MEDS: Metoprolol 5 MG/5 ML VIAL 2.5 MG IVP ×3 (09:19→22:37)
--- NOTE | 2024-09-23 12:36 | PT.INIE ---
PT Notes Visit Reasons: Bowel Obstruction Inpatient Physical Therapy Evaluation Certification Period:? From ?? Through I certify the need for these services as being medically necessary and skilled as furnished under this plan of treatment while under my care. Please sign and return within 14 days if you agree with the plan of care listed below.? Thank you for this referral! ? Referring Physician? Date Referring Doctor:? PT Orders: PT CONSULT for Precautions: Patient Profile/Admitting Diagnosis:? The patient is a yo male adm on Past Medical History: Social History/Home Situation: Subjective: Objective: Mental Status: Patient is alert and oriented. Pain: Vital Signs: ROM/Strength: Upper extremities: Lower extremities: Sensation: Soft tissue/edema: Bed Mobility: Supine to sit Tranfers: Sit to stand Gait: Ambulated feet Balance: [facility] 6 clicks Basic Mobility Inpatient Short Form: Raw Score:? CMS Score: Informed Consent/Education:? Patient instructed in purpose of PT consult and plan of care and is agreeable Assessment:? Patient is a? year old male adm on for.? Patient presents with pain, decreased strength, decreased functional mobility, decreased balance and difficulty with ambulation. The patient would benefit from skilled inpatient services to improve these impairments to maximize function and safety. Patient is assessed as:? Low 96657?? Moderate 66867?? High 80255 complexity based on the following: History: Examination: see above Presentation: Stable and uncomplicated? Evolving clinical presentation? Unstable/unpredictable? Decision Making:? Low (0 history, 1-2 exam, stable/predictable, easy 20) Moderate (1-2 history, 2-3 exam, evolving, mod-30 mins) High (3-4 history, 4+ exam, unstable, challenging- 45 mins) Physical Therapy Goals: 1 week Able to get in/out of bed with supervision only. Able to perform sit to/from stand with supervision only. Able to walk feet with rolling walker with supervision only. Able to go up and down 2-3 steps with 1 rail with contact guard assist only. Independent with home exercise program Plan of Care/Treatment Plan: 1-2x/day, 7 days/week x 1 week. Plan of care has been reviewed with the PHYSICIAN NON INVASIVE CARDIOLOGIST providing the service under Physical Therapy direction. Initiate Physical Therapy intervention for strengthening, bed mobility, transfers, gait, stairs, balance training, use of assistive device. DISCHARGE RECOMMENDATIONS: Billing Charges: Treatment Units Time Duration Manual Therapy(35718) Hands-on techniques to modulate pain increase joint range of motion reduce or eliminate soft tissue swelling, inflammation, or restriction facilitate relaxation and improve contractile and non-contractile tissue extensibility ? ? Therapeutic Procedures (91732) Instruction in therapeutic exercises to develop strength and endurance, range of motion and flexibility. HEP instruction and review: Provided skilled instruction in proper exercise performance: Provided skilled manual cues to facilitate proper muscle recruitment and/or movement pattern Neurological Re-Education(94914) To improve balance, coordination, kinesthetic and proprioceptive sensations. ? ? Ultrasound(21585) To promote healing. ? ? Gait Training(52096) ? ? Therapeutic Activity(09328) Instruction in dynamic activities with one on one patient contact by the provider to improve functional performance as follows: ? ? Self Care Training(81250) ? ? E-Stim (Attended)(17998) ? ? Low IE(49866) Mod IE(02736) ? ? High IE(58075) ? ? Time Coded Treatment Time ? Total Treatment Time ? Informed consent Prior to the start and throughout the course of the examination and treatment, patient was made aware of the specifics and purpose of the physical assessment and treatment procedures. Appropriate draping procedures were utilized to protect modesty where applicable.
--- NOTE | 2024-09-23 14:58 | PT.INNT ---
Date of service: 09/23/24 Time of Service: 14:58 PT Notes Visit Reasons: Bowel Obstruction Attempted to see pt x 3 this p.m. Pt requested to post pone PT until tomorrow a.m. due to having several rounds of diarrhea this afternoon. Will return tomorrow to complete IE.
--- NOTE | 2024-09-23 15:36 | W.PM.PROGNOT ---
Date of Service Date of service: 09/22/24 Time of Service: 16:45 Assessment and Plan Assessment and plan (1) Status post right hemicolectomy: Status: Acute Assessment and plan: Jitendra looks very good, I think we can advance his diet to some liquids today and see how he tolerates that. We started having some discussion about his atrial fibrillation therapeutic anticoagulation. We can revisit this in the next day or 2. Subjective Subjective Interval history since last seen: Jitendra looks great today. He is more alert and interactive. He says his pain has been well-controlled. He feels a little dehydrated, and he is interested in drinking. He has had no flatus or bowel movement yet. Exam GI Other: Abdomen is soft, nondistended. He is not at all tender. Bandages clean Objective Last Vital Signs Temp 98.4 F 09/23/24 07:35 Pulse 141 H 09/23/24 13:54 Resp 20 09/23/24 07:35 BP 108/55 L 09/23/24 13:54 Pulse Ox 96 09/23/24 13:52 Time Spent with Patient Time Spent with Patient: <25 minutes Time was spent: preparing to see the patient(eg.review tests) and counseling the patient
[2024-09-23 15:42] LABS: HCT 31.5 % (40.0-50.0); HGB 10.1 g/dL (13.5-17.5); MCH 24.2 pg (27.0-33.0); MCHC 32.1 % (32.0-36.0); MCV 76 fL (80-95); MPV 9.7 fL (8.0-11.0); Platelet Count 196 10^3/uL (130-400); RBC 4.17 10^6/uL (4.36-5.78); RDW-SD 62.2 fL
--- NOTE | 2024-09-23 15:50 | W.PM.PROGNOT ---
Date of Service Date of service: 09/23/24 Time of Service: 15:51 Assessment and Plan Assessment and plan (1) Status post right hemicolectomy: Status: Acute Assessment and plan: I will discontinue the Figueroa catheter today, and he should work on ambulating in the hallway a little bit. Will consult physical therapy to help with mobility and strengthening. I will also advance his diet to regular food, and see how he does. Subjective Subjective Interval history since last seen: Jitendra was able to tolerate the clear liquids yesterday without any nausea or vomiting. His appetite is increased a little bit today. He did like to try some regular food. Still does not think he had much in the way of flatus. Exam GI Other: His abdomen is quite soft, nondistended. He is got good bowel sounds. Objective Last Vital Signs Temp 98.4 F 09/23/24 07:35 Pulse 141 H 09/23/24 13:54 Resp 20 09/23/24 07:35 BP 108/55 L 09/23/24 13:54 Pulse Ox 96 09/23/24 13:52 Time Spent with Patient Time Spent with Patient: 25-34 minutes Time was spent: preparing to see the patient(eg.review tests), ordering medications,tests, procedures and counseling the patient
[2024-09-23 15:55] LABS: Anion Gap 6.9 mmol/L (3-11); BUN 17 mg/dL (7-18); CO2 26.1 mmol/L (21.0-32.0); CREATININE 0.7 mg/dL (0.70-1.30); Calcium 8.3 mg/dL (8.5-10.1); Chloride 103 mmol/L (98-107); Estimated GFR 93.15 (mL/min/1.73m2); Glucose 141 mg/dL (74-106); Potassium 3.5 mmol/L (3.5-5.1); Sodium 136 mmol/L (136-145)
[2024-09-23 15:59] LABS: RDW 23.1 % (11.8-14.1)
[2024-09-23] MEDS: HYDROmorphone 2 MG/ML SYR 1 MG IVP (19:53)
[2024-09-23] MEDS: Metoprolol 12.5 MG TAB PO (19:54)
[2024-09-23] MEDS: Normal Saline Flush 10 ML SYR IVP (19:55)
[2024-09-24] MEDS: HYDROmorphone 2 MG/ML SYR 1 MG IVP ×2 (04:29→21:44)
[2024-09-24 07:09] VITALS: BP 124/90; PULSE 94; RESP 16; TEMP 36.8; O2SAT 96
[2024-09-24] MEDS: Metoprolol 12.5 MG TAB PO ×2 (08:27→21:41)
[2024-09-24] MEDS: Normal Saline Flush 10 ML SYR IVP ×3 (08:27→21:40)
--- NOTE | 2024-09-24 09:45 | PT.INIE ---
Date of service: 09/24/24 Time of Service: 11:00 PT Notes Visit Reasons: Bowel Obstruction Inpatient Physical Therapy Evaluation Certification Period:? From 09/24/24 through 10/08/24 I certify the need for these services as being medically necessary and skilled as furnished under this plan of treatment while under my care. Please sign and return within 14 days if you agree with the plan of care listed below.? Thank you for this referral! ? Referring Physician? Date Referring Doctor:? PT Orders: PT CONSULT for limited mobility Precautions: None Patient Profile/Admitting Diagnosis:? The patient is a 79yo male admitted on 09/20/24 via the ER with abdominal pain. He was dx with a bowel obstruction and underwent a right hemicolectomy and tumor removal on 09/20/24. Past Medical History: PFSH All Active Problems (Updated 09/20/24 @ 14:06 by Viviana Wilkerson MD) Colonic mass (Acute) Bowel obstruction (Acute) Social History/Home Situation: Pt lives alone in a three story home. Subjective:Pt states that his shower and bathroom are in the basement. His bedroom is on the third floor (loft). He has 2 2x4 that act as railing to get to the loft. For the stairs into the basement, he has 3-4 steps at the top with only a wall to hold, then the stairs turn and he has vertical 2x4s he holds on to. He reports that he keeps a bucket on the first floor for urination so he does not need to climb the basement stairs as often. He reports that there is not enough room to relocate his bed to the first floor. Objective: Mental Status: Patient is alert and oriented. ROM/Strength: Upper extremities: ROM is WFL and strength is grossly 4/5-4+5/5 Lower extremities: ROM is WFL and strength is 5/5 evaluated in a sitting position. Tranfers: Sit to stand and stand to sit: CG of 1 with verbal cues for hand placement for walker Gait: Ambulated feet 200 ft with FWW and CG of 1 Balance: Pt is able to maintain static standing balance with UE and stand by assist of 1 Treatment: Therapeutic Activity(83445 x 1) Instruction in dynamic activities with one on one patient contact by the provider to improve functional performance as follows: Stairs: up and down 5 steps x 2 with (B) hand rails and CG of 1 Caught his right foot with ascending one step but did not result in loss of balance. Pt was able to pause for a moment and continue. [facility] AM-PAC 6 clicks Basic Mobility Inpatient Short Form: Raw Score:? CMS Score: 75% Informed Consent/Education:? Patient instructed in purpose of PT consult and plan of care and is agreeable Assessment:? Patient is a?79 year old male admitted on 09/20/24 with a bowel obstruction and is now s/p right hemicolectomy.? Patient presents with pain, decreased strength, decreased functional mobility, decreased balance and difficulty with ambulation. The patient would benefit from skilled inpatient services to improve these impairments to maximize function and safety. Pt will need to be able to ascend and descend 2 flights of stairs (I)ly in order to be d/c to home. If he is unable to achieve this goal, he may require short term rehab. Patient is assessed as:?? Moderate 77075? complexity based on the following: History: See above Examination: see above Presentation: Evolving clinical presentation? Moderate (1-2 history, 2-3 exam, evolving, mod-30 mins) Physical Therapy Goals: 1 week Able to get in/out of bed with supervision only. Able to perform sit to/from stand with supervision only. Able to walk feet with rolling walker with supervision only. Able to go up and down 1 flight with 1 rail with supervision to independent. Independent with home exercise program Plan of Care/Treatment Plan: 1-2x/day, 7 days/week x 1 week. Plan of care has been reviewed with the [facility] providing the service under Physical Therapy direction. Initiate Physical Therapy intervention for strengthening, bed mobility, transfers, gait, stairs, balance training, use of assistive device. DISCHARGE RECOMMENDATIONS: Short term rehab vs d/c to home with home health PT. Billing Charges: Treatment Units Time Duration Manual Therapy(45661) Hands-on techniques to modulate pain increase joint range of motion reduce or eliminate soft tissue swelling, inflammation, or restriction facilitate relaxation and improve contractile and non-contractile tissue extensibility ? ? Therapeutic Procedures (50993) Instruction in therapeutic exercises to develop strength and endurance, range of motion and flexibility. HEP instruction and review: Provided skilled instruction in proper exercise performance: Provided skilled manual cues to facilitate proper muscle recruitment and/or movement pattern Neurological Re-Education(00242) To improve balance, coordination, kinesthetic and proprioceptive sensations. ? ? Ultrasound(76806) To promote healing. ? ? Gait Training(24033) ? ? Therapeutic Activity(17035) Instruction in dynamic activities with one on one patient contact by the provider to improve functional performance as follows: ?1 ?10 Self Care Training(20648) ? ? E-Stim (Attended)(09919) ? ? Low IE(27492) Mod IE(42366) ?1 ?30 High IE(72754) ? ? Time Coded Treatment Time ? Total Treatment Time ? Informed consent Prior to the start and throughout the course of the examination and treatment, patient was made aware of the specifics and purpose of the physical assessment and treatment procedures. Appropriate draping procedures were utilized to protect modesty where applicable.
--- NOTE | 2024-09-24 10:34 | PGE_ITS ---
Date of Service Date of service: 09/24/24 Time of Service: 10:34 Assessment and Plan Assessment and plan (1) Status post right hemicolectomy: Status: Acute Assessment and plan: I will discontinue the MiraLAX today, since his stool is mostly liquid. Will trial him on a little more regular food today and see how he does with that. I will consult the medicine specialists with regards to optimal management of his atrial fibrillation, as well as discussion for long-term therapeutic anticoagulation. Subjective Subjective Interval history since last seen: Jitendra had a little more tachycardia last night that required another dose of beta-blockade. He also had a liquid bowel movement yesterday. Urine output is a little bit low this morning, but other markers of resuscitation are reassuring. Exam GI Other: His abdomen is soft, nondistended. The dressing looks fine. He does have bowel sounds. Objective Last Vital Signs Temp 98.2 F 09/24/24 07:09 Pulse 94 H 09/24/24 07:09 Resp 16 09/24/24 07:09 BP 124/90 09/24/24 07:09 Pulse Ox 96 09/24/24 07:09 Laboratory Results - last 24 hr 09/23/24 15:38 WBC 9.00 RBC 4.17 L Hgb 10.1 L Hct 31.5 L MCV 76 L MCH 24.2 L MCHC 32.1 RDW 23.1 H Plt Count 196 MPV 9.7 Sodium 136 Potassium 3.5 Chloride 103 Carbon Dioxide 26.1 Anion Gap 6.9 BUN 17 Creatinine 0.7 Est GFR (CKD-EPI 2020) 93.15 Glucose 141 H Calcium 8.3 L Time Spent with Patient Time Spent with Patient: 25-34 minutes Time was spent: preparing to see the patient(eg.review tests), referring, communicating with other health residential care facility manager and indepentently interpreting results
[2024-09-24] MEDS: Heparin 5,000 UNITS/ML VIAL 5000 UNITS SC ×2 (10:40→21:41)
--- NOTE | 2024-09-24 13:17 | PT.INTREAT ---
PT Notes Visit Reasons: Bowel Obstruction Inpatient Physical Therapy Treatment Note [facility] Date: 09/24/24 SUBJECTIVE: He reports that he did not want to go far from the bathroom but agreed to walk back in forth in the hallway by his room. OBJECTIVE: ? PAIN: 09/18 ? BED MOBILITY/TRANSFERS? Sit-supine: CG to min A for his LE. Able to reposition his shoulders with verbal cues once lying down and able to bridge to reposition his hips. ? Sit-stand:CG of 1? verbal cues for hand placement ? Stand-sit: CG of 1 verbal cues for hand placement ? Provided skilled cues and instruction on performance and technique throughout. Gait Training (07056b[1]): Direct one-on-one instruction and skilled instruction in: [x] employing an assistive device [] modified weight-bearing status [] movement sequencing [] turning and movement with proper form [x] Provided verbal cues for equipment management and technique [x] Provided instruction in gait pattern [] Patient education regarding pacing and breathing techniques to maximize activity tolerance? GAIT? Assistive Device: FWW? Assist: CG of 1 ? Distance:? 100 ft ? Deviation: Stooped posture and pt increased his pace at the end of the walk when more fatigued? ASSESSMENT:? Pt was fatigued and posture was more stooped when ambulating. He experienced increased pain with bed mobility. May need to work on pacing as his pace increased as he fatigued. PLAN: Cont PT 1-2x/day x 7 days /week per POC. TREATMENT CODE/TIME: 09101 20 minutes DISCHARGE RECOMMENDATION: Short term rehab vs home with HHPT
[2024-09-24 14:37] VITALS: BP 107/77; PULSE 117; RESP 20; TEMP 36.8; O2SAT 97
--- NOTE | 2024-09-24 15:04 | W.MEDCONSULT ---
Date of service: 09/24/24 Time of Service: 15:04 Assessment and Plan Assessment and plan (1) Atrial fibrillation: Status: Chronic Assessment and plan: This was present on initial presentiation. Unclear duration but appears chronic. Started on metoprolol. Rate still above goal of 80-110, will increase metoprolol dose, go to q6hr as we titrate. [id number] score is 2 (though he was not being screened for HTN and some BPs high diastolic). We discussed rationale for anticoagulation and alternatives including no treatment and Watchman, he agrees with apixaban. Will touch base with surgeon re: timing, there is no jacob. Stop SQ heparin when we start this. (2) Status post right hemicolectomy: Assessment and plan: Management per surgery. Loose stool may simply be the PEG. Monitor. (3) Decreased urine output: Status: Acute Assessment and plan: We may be missing output with loose stool, but will give him some gentle fluids and monitor u/o and renal function with labs. History of Present Illness History of Present Illness Chief Complaint: atrial fibrillation, s/p colectomy Narrative: 79 yo M who does not get regular medical care, presented to the emergency room on the morning of 09/20/24 with 2 weeks of abdominal pain, early satiety, a weight loss of 15-20lbs, and no stool or gas x 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 He underwent a right colectomy with re-enstamosis later in the day of 09/20. The surgery was uncomplicated. His pain is not bad. His complaint currently is that for the last day since he started moving his bowels every time he drinks he gets loose diarrhea stool. BMs are not painful. He was on polyethylene glycol post operatively and this was stopped after Dr. Mabry saw him this morning. No blood in stool or melena. No nausea or vomiting. He is taking clears but he doesn't want to eat or drink too much because he feels he will have immediate diarrhea. On admission atrial fibrillation was noted. He was unaware of this issue. He states he had noticed some new lightheadedness with standing and sometimes with activity on occasion over the month prior to admission. No chest pain, SOB, or palpitations. He doesn't feel palpitations now. Per RNs he has only had 25ml of urine, post void bladder scan with minimal volume. Review of Systems All systems reviewed & are unremarkable except as noted in HPI and below PFSH All Active Problems (Updated 09/24/24 @ 15:24 by Tyron Busch) Decreased urine output (Acute) Atrial fibrillation (Chronic) Advanced care planning/counseling discussion (Acute) Palliative care patient (Acute) Colonic mass (Acute) Bowel obstruction (Acute) Surgical History (Updated 09/24/24 @ 15:17 by Tyron Busch) Status post right hemicolectomy Dr. Mabry 09/20/24 Social History (Updated 09/24/24 @ 15:18 by Tyron Busch) Smoking/Tobacco Use Status: Never Smoking risk assessment performed?: Yes Alcohol Intake: never Drug use: Never Substance use type: does not use Housing: house Do you feel safe at home: Yes Do you feel safe in your relationship?: Yes Additional Social history: Retired from [employer] in [employer] to [employer], but didn't have enough savings to finish his house Exam Narrative Exam Narrative: GEN: Alert and oriented x 4,thin with some muscle wasting, pleasant and cooperative, gives linear history. No acute distress at rest. HEENT: Head atraumatic. Conjunctiva clear, no icterus. no rhinorrhea. MMM, OP benign. Neck is supple with no masses or lymphadenopathy, trachea midline LUNGS: CTAB with normal effort CV: Irregularly irregular, tachycardic around 120 with no murmurs, gallops, or rubs. ABD: Midline scar dressing c/d/i. active bowel sounds, soft, nontender and nondistended. EXT: no cyanosis, clubbing, or edema NEURO: CN 2-12 grossly intact. Normal movement of 4 extremities. Normal speech and coordination. No tremor SKIN: No rashes or open wounds other than surgical scar PSYCH: normal mood and affect, nl thought process Results Last Vital Signs Temp 36.8 C 09/24/24 14:37 Pulse 117 H 09/24/24 14:37 Resp 20 09/24/24 14:37 BP 107/77 09/24/24 14:37 Pulse Ox 97 09/24/24 14:37 Labs 09/23/24 15:38 09/23/24 15:38 Labs: Laboratory Results - last 24 hr 09/23/24 15:38 WBC 9.00 RBC 4.17 L Hgb 10.1 L Hct 31.5 L MCV 76 L MCH 24.2 L MCHC 32.1 RDW 23.1 H Plt Count 196 MPV 9.7 Sodium 136 Potassium 3.5 Chloride 103 Carbon Dioxide 26.1 Anion Gap 6.9 BUN 17 Creatinine 0.7 Est GFR (CKD-EPI 2020) 93.15 Glucose 141 H Calcium 8.3 L Imaging EKG: report reviewed and image reviewed (atrial fibrillation, no ischemic changes)
[2024-09-24] MEDS: Metoprolol 25 MG TAB PO ×2 (15:11→17:36)
[2024-09-24 17:34] VITALS: BP 118/74; PULSE 104
[2024-09-24 19:37] VITALS: BP 119/92; PULSE 102; RESP 20; TEMP 36.9; O2SAT 99
[2024-09-25 06:34] LABS: Anion Gap 7.2 mmol/L (3-11); BUN 9 mg/dL (7-18); CO2 24.8 mmol/L (21.0-32.0); CREATININE 0.5 mg/dL (0.70-1.30); Calcium 8.2 mg/dL (8.5-10.1); Chloride 106 mmol/L (98-107); Estimated GFR 103.11 (mL/min/1.73m2); Glucose 114 mg/dL (74-106); Potassium 3.6 mmol/L (3.5-5.1); Sodium 138 mmol/L (136-145)
[2024-09-25 07:31] VITALS: BP 116/77; PULSE 106; RESP 16; TEMP 36.7; O2SAT 95
[2024-09-25] MEDS: Metoprolol 12.5 MG TAB PO ×2 (08:14→09:08)
[2024-09-25] MEDS: Normal Saline Flush 10 ML SYR IVP ×2 (08:16→20:36)
--- NOTE | 2024-09-25 08:53 | CMPROGNOTE_ITS ---
Date of service: 09/25/24 Time of Service: 08:54 Care Management Progress Note Progress Note Text Progress Note Text: Jitendra was awake and sitting in a recliner when CM met with him. He is polite and easily engages in conversation. He is a surgical patient and is s/p right hemicolectomy, probable cancer dx. Hospitalist is consulted for medical management of Afib; now on Eliquis. After discharge Eliquis will be $0 for the first 30 days, after that the cost will be subject to his deductible. Palliative is coming this afternoon to discuss goals of care and help with Advanced directives. He does not have a PCP and will need a t-doc follow up on discharge. CM will ask Surgical to follow [facility] orders after discharge. Jitendra does not have support in the community; no family or friends. He will need [facility] to transport him home, and possibly to future medical appointments. His only water source is in the basement and is is concerned about his ability to go up and down the stairs after discharge. Jitendra would like to look into MOW and other community supports and is agreeable to a referral to [facility] and [facility]. Possibly [facility] could help with his plumbing? CM will follow. Discharge Potential Discharge Needs: PCP F/U Appt and Surgical F/U Appt Anticipated Barriers to Discharge: Medical Status Patient/Family Education Needs: Review discharge instructions, discuss Ask Me Three Transportation: Private vehicle Plan: PT recommends SNF for STR (pt declines) vs. home with [facility] PT. Anticipate, Jitendra will discharge home with [facility] RN, PT, OT, STRATE[facility]IC BUSINESS DEVELOPMENT and follow up with Palliative. Will need a t-doc follow up and Surgical to follow [facility] orders (if possible). He is interested in [facility] and increased community supports. CM will place referrals to [facility] and [facility]. Social Determinants of Health Screening Will the Patient Participate in the Screening?: Unable to obtain Do you worry about having a steady place to live?: no
[2024-09-25] MEDS: Heparin 5,000 UNITS/ML VIAL 5000 UNITS SC ×2 (09:08→22:50)
--- NOTE | 2024-09-25 11:53 | NUR.NOTE ---
patient OOBTC with PT, SBA with FWW. Patient is AxOx4 this shift, pain around 2/10 at rest but intermittently increases with bowel movements. Pt has denied wanting IV dilaudid yet this shift, discussed with MD Busch about talking to Dr Mabry concerning some middle of the road pain meds (currently on tylenol and IV dilaudid). Patient given and educated on abdominal binder to help with pain with change in position/abdominal muscle use. Patient denies needs at this time, call light in reach, waiting for lunch, roseann chair alarm on. Bed linens made, wants to wash up later today. Abdomen is S/T/ND with old shadowing on rebekah dsg. Pt having about 3 BMs a day per reports, starting to become semi formed. Voiding independently to urinal or toilet. Nursing Note:
--- NOTE | 2024-09-25 11:56 | PTTR_ITS ---
PT Notes Visit Reasons: Bowel Obstruction Inpatient Physical Therapy Treatment Note [facility] Date: 09/25/24 SUBJECTIVE: Pt reporting he thinks the abdominal binder is helpful. OBJECTIVE: ? PAIN: 09/18 abdomen Therapeutic activity ? BED MOBILITY/TRANSFERS? Provided skilled cues and instruction on performance and technique throughout.?(1st session) ?supine to sit via sidelying with min A and VCs for sequencing. ? Sit-stand:CG of 1? verbal cues for hand placement and to increase anterior wt shift ? Stand-sit:SBA of 1 verbal cues for hand placement ? ( 2nd session) sit to stand x 6 trials with CGA x 2 trials and SBA x 4 trials with cue to scoot forward to edge of seat and increase anterior lean as push up to stand. ( without cue pt with LOB posteriorly and feet sliding out) Stand to sit SBA all trials, transfers without AD CGA x 2 trials transfers with FWW SBA sit to supine with min A for LE d/t abdominal discomfort as he attempts to lift legs onto bed. donning abdominal binder after ECHO pt dependent. Gait Training (08769l[1]): Direct one-on-one instruction and skilled instruction in: [x] employing an assistive device [x] Provided verbal cues for equipment management and technique [x] Provided instruction in gait pattern (1st session) Facilitated safe and correct performance of level surface ambulation covering a distance of 200 feet x 1 with 1 stand rest then 200 feet without stand rest using use front wheeled walker with SBA. Did not report of any increased pain. D enied headache, chest pain, and lightheadedness throughout activity. Minimal verbal cueing provided for AD management, directional changes, and posture. Stairs: 5 steps x 2 with rail CGA step to pattern. rest between sets. ASSESSMENT:? Pt. able to tolerate increased mobility today with use of binder, adjustment in pain medication and no episodes of bowel urgency. He continues to benefit from use of FWW d/t difficulty standing upright and ambulating without UE support. Pt notes his home situation is not conducive to use an FWW ( 3 levels for which he has to navigate). Will attempt ambulation with cane next session as this may provide adequate support and enable him to move between floors in his home with less difficulty. PLAN: Cont PT 1-2x/day x 7 days /week per POC. TREATMENT CODE/TIME: 1st session :14005 20 minutes for 1 unit , 75508 x 1 unit / [id number] 2nd session: 80517 x 24 mins for 2 units/ [id number], [id number] DISCHARGE RECOMMENDATION: Short term rehab vs home with HHPT
--- NOTE | 2024-09-25 11:59 | PGE_ITS ---
Date of Service Date of service: 09/25/24 Time of Service: 11:59 Assessment and Plan Assessment and plan (1) Atrial fibrillation: Status: Chronic Assessment and plan: This was present on initial presentiation. Unclear duration but appears chronic. Started on metoprolol. Rate still slightly above goal of 80-110, will increase metoprolol dose, continue q6hr as we titrate. [id number] score is 2 (though he was not being screened for HTN and some BPs high diastolic). We discussed rationale for anticoagulation and alternatives including no treatment and Watchman, he agrees with apixaban, sent to [facility]. 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 (2) Status post right hemicolectomy: Assessment and plan: Management per surgery. Loose stool have continued though improved off PEG. Can add psyllium, change opioid pain medication to oral. Monitor. (3) Decreased urine output: Status: Acute Assessment and plan: Normal today, now off fluids, stable renal function. Subjective Subjective Patient reports: voiding w/o difficulty; denies vomiting, shortness of breath or fever Interval history since last seen: Still getting loose stool. Pain in incision is 2/10 but when he has to get up to stool after eating or with PT it increases to 5/10 sometimes higher. He is frustated with loose stool. He is eating. Mild nausea comes and goes but no vomiting. Exam Narrative Exam Narrative: GEN: Alert and oriented. No acute distress at rest. LUNGS: CTAB x bibasilar rales, normal effort CV: Irregularly irregular, tachycardic around 100 with no murmurs, gallops, or rubs. ABD: Midline scar dressing c/d/i. active bowel sounds, soft, nontender and nondistended. EXT: no cyanosis, clubbing, or edema Objective Last Vital Signs Temp 36.7 C 09/25/24 07:31 Pulse 106 H 09/25/24 07:31 Resp 16 09/25/24 07:31 BP 116/77 09/25/24 07:31 Pulse Ox 95 09/25/24 07:31 Laboratory Results - last 24 hr 09/25/24 05:38 Sodium 138 Potassium 3.6 Chloride 106 Carbon Dioxide 24.8 Anion Gap 7.2 BUN 9 Creatinine 0.5 L Est GFR (CKD-EPI 2020) 103.11 Glucose 114 H Calcium 8.2 L Time Spent with Patient Time Spent with Patient: 35-49 minutes Time was spent: preparing to see the patient(eg.review tests), obtaining and/or reviewing separately otained hiistory, ordering medications,tests, procedures, referring, communicating with other health healthcare manager, indepentently interpreting results, counseling the patient and care coordination
[2024-09-25] MEDS: oxyCODONE 5 MG TAB PO ×3 (12:15→22:49)
[2024-09-25] MEDS: Metoprolol 25 MG TAB PO ×3 (12:16→20:36)
--- NOTE | 2024-09-25 14:29 | W.PALPGNOTE ---
Date of service: 09/25/24 Time of Service: 13:30 Assessment and Plan Assessment and plan (1) Atrial fibrillation: Status: Chronic Assessment and plan: CM working to coordinate for [facility] - to coordinate w/CCC if PCP established (2) Colonic mass: Status: Acute Assessment and plan: s/p R hemicolectomy 09/20, biopsies pending - would not want chemotherapy if margins not clear - continue review of treatment preferences once results returned (3) Palliative care patient: Status: Acute Assessment and plan: PC will continue to follow, plan for reviewing and completing AD in one sitting f/u on Wed inpatient if he remains hospitalized, or outpatient HV in future (4) Advanced care planning/counseling discussion: Status: Acute Assessment and plan: reviewed [place] laws regarding if person does not have capacity and no HCA, he would want a state appointed guardian and not his sister or brother to have decision making capacity. reviewed importance of AD, to outline his preferences in care for guardian to support and advocate for him reviewed CODE status, preference for DNR/I, COLST form completed and returned to patient spent 25m w/ACP Subjective Subjective Interval history since last seen: Jitendra remains hospitalized s/p R hemicolectomy on 09/20; last seen by PC on 09/22 - since then his NGT was removed, as tolerated advancing diet appropriately, riddle catheter removed successfully, and has been moving bowels Jitendra would like to return home post-hospitalization. He is worried about his home after not being home for several days. He made a promise to his parents that he would take care of his brother Dc, who has sig MH conditions and lives in [place]. Jitendra is currently responsible for his finances and care coordination. There is a family agreement in place, his sister Cassi would take over his duties when he is unable to do this anymore. His relationship with Cassi is up and down, they are not always on the same page. He is an introvert by nature, not close to many people, does not like to get deeper than surface level. he is happy and content with this and continuing this. He does not want to bridge his discharge home with a short stay at a SNF, but he is worried about what to do if pain returns. He is aware his mass is colon cancer, they are pending results on knowing if there were clear margins or not. If there were not, he would not want chemotherapy treatment. His QoL is important to him. He agrees that an AD is an important document to complete, jose l since he cannot identify a trusted HCA. His preference would be to complete all at once, when he is feeling a bit more energized. Exam Narrative Exam Narrative: General: older adult male, lying in hospital bed throughout visit HEENT: hearing grossly WNL, normocephalic, atraumatic, MMM Resp: even and unlabored, speaks full sentences w/o SOB; no audible wheeze or cough Psych: pleasant, cooperative, MS WNL, thought process normal; insight/judgment fair to good Objective Last Vital Signs Temp 98.1 F 09/25/24 07:31 Pulse 106 H 09/25/24 07:31 Resp 16 09/25/24 07:31 BP 116/77 09/25/24 07:31 Pulse Ox 95 09/25/24 07:31 Laboratory Results - last 24 hr 09/25/24 05:38 Sodium 138 Potassium 3.6 Chloride 106 Carbon Dioxide 24.8 Anion Gap 7.2 BUN 9 Creatinine 0.5 L Est GFR (CKD-EPI 2020) 103.11 Glucose 114 H Calcium 8.2 L
--- NOTE | 2024-09-25 15:30 | NUR.NOTE ---
patient seems to be improving, bowels have slowed, oxycodone has helped with pain control along with MD Raghavendra miller removed rebekah dsg and incision is now MOHINI with neeru intact. Patient resting in bed, met with palliative and is now DNR/DNI status. Bed alarm on, call regan in reach. Nursing Note:
[2024-09-25 15:45] VITALS: BP 106/79; PULSE 105; RESP 16; TEMP 36.6; O2SAT 96
[2024-09-25 19:21] VITALS: BP 106/75; PULSE 101; RESP 19; TEMP 36.5; O2SAT 96
[2024-09-25] MEDS: Psyllium PKT 1 EACH PO (20:36)
[2024-09-25 23:07] VITALS: BP 113/77; PULSE 90; RESP 20; TEMP 36.4; O2SAT 96
[2024-09-26 03:02] VITALS: BP 114/90; PULSE 88; RESP 20; TEMP 36.5; O2SAT 99
[2024-09-26] MEDS: oxyCODONE 5 MG TAB PO ×3 (03:04→19:51)
[2024-09-26 07:35] VITALS: BP 116/92; PULSE 95; RESP 16; TEMP 37.2; O2SAT 99
[2024-09-26] MEDS: Normal Saline Flush 10 ML SYR IVP ×2 (08:00→19:47)
[2024-09-26] MEDS: Psyllium PKT 1 EACH PO (08:00)
[2024-09-26] MEDS: Metoprolol 25 MG TAB PO ×2 (08:01→10:54)
[2024-09-26 08:27] VITALS: PULSE 100
--- NOTE | 2024-09-26 08:51 | CMPROGNOTE_ITS ---
Date of service: 09/26/24 Time of Service: 08:51 Care Management Progress Note Progress Note Text Progress Note Text: Jitendra was toileting each time CM attempted to meet with him today, will check back at a later time. Jitendra is a surgical patient and is s/p right hemicolectomy, probable cancer dx. Hospitalist is consulted for medical management of Afib; metoprolol is being titrated and will have Eliquis on discharge. The RX is ready for case picker at [facility] and the cost is $0 for the first 30 days (with the use of a cost savings card provided by CM.) After that the cost will depend on his deductible. Support with future RX costs, may be available from [employer] (as they have assistance programs to off-set the high costs of this med), if he is eligible. Jitendra is interested in MOW, getting established with [facility] and increased community supports, referrals were sent to [facility] and [facility]. He does not have a PCP and will need [facility] RN,PT,OT, HUMAN FACTORS SCIENTIST (CM will ask surgical to follow orders. ) CM will give him the list of local PCP's to establish care in the future. He is planning to follow up with palliative; his goals of care are largely dependent on biopsy results. Discharge Potential Discharge Needs: Consult Anticipated Barriers to Discharge: None Identified Patient/Family Education Needs: Review discharge instructions, discuss Ask Me Three Transportation: Private vehicle Plan: PT recommends SNF for STR (pt declines) vs. home with [facility] PT. He will need [facility] for transportation. Anticipate, Jitendra will discharge home with [facility] RN, PT, OT, HUMAN FACTORS SCIENTIST and follow up with Palliative. Will need a t-doc follow up and Surgical to follow [facility] orders (if possible). He is interested in MOW and increased community supports. Referrals were sent to [facility] and [facility]. Social Determinants of Health Screening Will the Patient Participate in the Screening?: Unable to obtain Do you worry about having a steady place to live?: no
--- NOTE | 2024-09-26 09:13 | NUR.NOTE ---
Pt is a/o x 4 and able to make needs known. Pt asked to be premedicated for PT session this am. Oxycodone PO administered at 0830. PT aware that patient has been repmedicated and needs to be first patient seen. Pt c/o pain 3/10 right now while lying in bed but goes to a 5 with activity.
[2024-09-26] MEDS: Heparin 5,000 UNITS/ML VIAL 5000 UNITS SC ×2 (10:25→22:34)
--- NOTE | 2024-09-26 11:08 | PT.INTREAT ---
PT Notes Visit Reasons: Bowel Obstruction Inpatient Physical Therapy Treatment Note [facility] Date: 09/26/24 SUBJECTIVE: Pt reporting he is having alot of bloating and it feels uncomfortable. OBJECTIVE: Pt presented in upright position in bed with legs elevated on a pillow. abdominal binder noted to have risen up around chest.? PAIN: 09/18 abdomen Therapeutic activity ? BED MOBILITY/TRANSFERS? Provided skilled cues and instruction on performance and technique throughout.?supine to sit via sidelying with min A and VCs for sequencing. ? Sit-stand:CG of 1? verbal cues for hand placement and to increase anterior wt shift including scooting forward to edge of surface he is sitting on. (5 trials)? Stand-sit:SBA of 1 verbal cues for hand placement (5 trials)? Surface to surface transfers with FWW SBA sit to supine with min A for LE d/t abdominal discomfort as he attempts to lift legs onto bed. Abdominal Binder : dependent for don/doff and proper placement Gait Training (00717z[1]): Direct one-on-one instruction and skilled instruction in: [x] employing an assistive device [x] Provided verbal cues for equipment management and technique [x] Provided instruction in gait pattern Facilitated safe and correct performance of level surface ambulation covering a distance of 200 feet x 1 with 1 stand rest then 200 feet without stand rest using use front wheeled walker with SBA. Did not report of any increased pain. Denied headache, chest pain, and lightheadedness throughout activity. Minimal verbal cueing provided for AD management, directional changes, and posture. Stairs: 5 steps x 2 with rail CGA step to pattern. stand rest between sets.Pt with decreased control descending 6 steps d/t impaired ankle DF and impaired eccentric control ASSESSMENT:? Pt decline to attempt cane this session d/t abdominal discomfort and bloating . He was able to ambulate with the FWW 350 feet. Pt agreeable to raising FWW to promote upright posture. Pt requires min A for bed mobility to get his legs into bed and mod A with HOB flat to get out of bed. Pt encouraged to utilize b knee flexion, roll to the side then bring legs over edge of bed then push up to sitting position. PLAN: Cont PT 1-2x/day x 7 days /week per POC. TREATMENT CODE/TIME: 46253,16042/1294-8171 DISCHARGE RECOMMENDATION: Short term rehab vs home with HHPT
[2024-09-26 11:30] VITALS: BP 95/74; PULSE 96; TEMP 37.1
--- NOTE | 2024-09-26 13:32 | W.PM.PROGNOT ---
Date of Service Date of service: 09/26/24 Time of Service: 12:55 Assessment and Plan Assessment and plan (1) Atrial fibrillation: Status: Chronic Assessment and plan: This was present on initial presentiation. Unclear duration but appears chronic. Started on metoprolol. Rate still slightly above goal of 80-110, will increase metoprolol dose again to 50mg TID [id number] score is 2 (though he was not being screened for HTN and some BPs high diastolic). We discussed rationale for anticoagulation and alternatives including no treatment and Watchman, he agrees with apixaban, sent to [facility], working with CM on cost. 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 Can stop tele as afib is chronic and hasn't changed. (2) Status post right hemicolectomy: Assessment and plan: Management including discharge timing per surgery. Pathology pending still Loose stool have resolved. Can stop psyllium as causing some bloating. appreciate palliative consult. (3) Decreased urine output: Status: Acute Assessment and plan: Normalized with stable renal function. Some LUT symptoms but managing. (4) Anemia: Status: Chronic Assessment and plan: likely blood loss assciated with colonic mass, had mild anemia on presentation and stable post-op. Microcytic, likely iron deficient. Confirm with labs and supplement once bowel function stable. Subjective Subjective Patient reports: tolerating a regular diet; denies diarrhea, nausea, vomiting, shortness of breath or fever Interval history since last seen: Events: Started with psyllium. Now using oxycodone orally rather than IV hydromorphone. After dose of psyllium this morning he felt bloated. His loose stools did resolve, has not had a stool today. He is still eating well He also mentions his binder helps his pain a good deal, but it slipped up last night and was affecting his breathing. Feels fine now. Voiding okay, but hard in front of nurses. Walking with PT. Exam Narrative Exam Narrative: GEN: Alert and oriented. No acute distress at rest. LUNGS: CTAB x bibasilar rales, normal effort CV: Irregularly irregular, tachycardic around 90s with no murmurs, gallops, or rubs. ABD: Midline scar dressing c/d/i. active bowel sounds, soft, nontender and nondistended. EXT: no cyanosis, clubbing, or edema Objective Last Vital Signs Temp 37.1 C 09/26/24 11:30 Pulse 96 H 09/26/24 11:30 Resp 16 09/26/24 07:35 BP 95/74 L 09/26/24 11:30 Pulse Ox 99 09/26/24 07:35 Time Spent with Patient Time Spent with Patient: 35-49 minutes Time was spent: preparing to see the patient(eg.review tests), obtaining and/or reviewing separately otained hiistory, ordering medications,tests, procedures, referring, communicating with other health home health care physician, indepentently interpreting results, counseling the patient and care coordination
[2024-09-26] MEDS: Metoprolol 50 MG TAB PO ×2 (13:39→19:47)
[2024-09-26 15:09] VITALS: BP 132/69; PULSE 109; RESP 17; TEMP 36.8; O2SAT 97
--- NOTE | 2024-09-26 17:34 | W.PM.PROGNOT ---
Date of Service Date of service: 09/25/24 Time of Service: 19:00 Assessment and Plan Assessment and plan (1) Colonic mass: Status: Acute Assessment and plan: We have added some Metamucil today, will see if that helps to bulk in the stools, and improve some retention. Jitendra will continue to work with physical therapy. He is fairly deconditioned still, and he has no support at home, as we need to optimize those strategies before discharge. Subjective Subjective Interval history since last seen: Jitendra feels a little bit stronger today. He has been up and moving around a bit. He was able to sit in the chair for a while with little bit of basic physical therapy. He continued to have diarrhea through last night. Exam GI Other: I remove the dressing today. The incision is clean, and there is no erythema or any signs of infection. Objective Last Vital Signs Temp 98.2 F 09/26/24 15:09 Pulse 109 H 09/26/24 15:09 Resp 17 09/26/24 15:09 BP 132/69 09/26/24 15:09 Pulse Ox 97 09/26/24 15:09 Time Spent with Patient Time Spent with Patient: 25-34 minutes Time was spent: preparing to see the patient(eg.review tests), indepentently interpreting results and counseling the patient
--- NOTE | 2024-09-26 17:36 | W.PM.PROGNOT ---
Date of Service Date of service: 09/26/24 Time of Service: 17:36 Assessment and Plan Assessment and plan (1) Colonic mass: Status: Acute Assessment and plan: We can see how his stooling evolves overnight, and adjust the Metamucil tomorrow if needed. He will continue to work with physical therapy tomorrow, and plans to try to ambulate with the assistance of a cane. We are making arrangements anticipating discharge home with medical and social support. Subjective Subjective Interval history since last seen: Jitendra is up and eating dinner. His stools have been more formed since the addition of Metamucil yesterday, although he did have a little bit of bloating today. He tells me he was able to get up and use the walker a bit, and he does feel stronger. Exam GI Other: His abdomen is soft, and not at all distended. The incision looks clean. Objective Last Vital Signs Temp 98.2 F 09/26/24 15:09 Pulse 109 H 09/26/24 15:09 Resp 17 09/26/24 15:09 BP 132/69 09/26/24 15:09 Pulse Ox 97 09/26/24 15:09 Time Spent with Patient Time Spent with Patient: 25-34 minutes Time was spent: preparing to see the patient(eg.review tests), indepentently interpreting results and counseling the patient
[2024-09-26 19:20] VITALS: BP 100/72; PULSE 105; RESP 20; TEMP 37.3; O2SAT 94
[2024-09-26] MEDS: Acetaminophen 325 MG TAB 650 MG PO (22:40)
[2024-09-27] MEDS: HYDROmorphone 2 MG/ML SYR 1 MG IVP ×4 (00:07→23:12)
[2024-09-27] MEDS: Normal Saline Flush 10 ML SYR IVP ×3 (00:08→19:35)
[2024-09-27 04:11] VITALS: BP 108/77; PULSE 95; RESP 20; TEMP 37.3; O2SAT 98
[2024-09-27 06:35] LABS: HCT 26.7 % (40.0-50.0); HGB 8.7 g/dL (13.5-17.5); MCH 24.3 pg (27.0-33.0); MCHC 32.6 % (32.0-36.0); MCV 75 fL (80-95); Platelet Count 197 10^3/uL (130-400); RBC 3.58 10^6/uL (4.36-5.78); RDW 22.6 % (11.8-14.1); RDW-SD 60.1 fL; WBC 7.41 10^3/uL (4.4-10.8)
[2024-09-27 06:59] LABS: Iron 11 ug/dL (65-175); Total Iron Binding Capacity 236 ug/dL (250-450); Transferrin Sat 5 % (20-55)
[2024-09-27 07:26] VITALS: BP 118/76; PULSE 104; RESP 16; TEMP 36.1; O2SAT 99
[2024-09-27] MEDS: Heparin 5,000 UNITS/ML VIAL 5000 UNITS SC ×2 (08:12→23:12)
[2024-09-27] MEDS: Metoprolol 50 MG TAB PO ×3 (08:12→19:35)
[2024-09-27] MEDS: oxyCODONE 5 MG TAB PO (08:47)
--- NOTE | 2024-09-27 09:04 | PDOC.CMPRO ---
Care Management Progress Note Progress Note Text Progress Note Text: Jitendra is a surgical patient and is s/p right hemicolectomy, probable cancer dx, biopsy results are pending. He had some drainage from his wound this morning, therefor he will remain at [facility] another night. Surgical will follow new [facility] services on discharge. In addition, there is a Hospitalist consult for medical management of Afib; currently his metoprolol is being titrated and will have new rx for Eliquis on discharge. The RX is ready for cigar packer and picker at [facility] and the cost is $0 for the first 30 days (with the use of a cost savings card provided by CM.) After that the cost will depend on his deductible. Support with future RX costs, may be available from [employer] (as they have assistance programs to off-set the high costs of this med), if he is eligible. Jitendra would like to be connected with community resources. His health is declining and he doesn't have any family or friends to lean on in the community. He would benefit with MOW and getting future rides from [facility]. CM placed referrals to [facility] and [facility], with his permission. Kay from the [facility] contacted Jitendra via phone today. He may benefit from support with shelter planning, he is not interested in [facility] due to the financial/asset implications and is not interested in SNF for STR. CM will follow and support Jitendra his discharge needs. Discharge Potential Discharge Needs: Other (T-doc follow up, Follow up with Surgical and Palliative, increased community supports. ) Anticipated Barriers to Discharge: None Identified Patient/Family Education Needs: Review discharge instructions, discuss Ask Me Three Transportation: [facility] Transportation: Private [facility] Plan: Jitendra will discharge home with [facility] RN, PT, OT, DEMONSTRATOR ELECTRIC G[employer] APPLIANCES orders (surgical to follow orders, no PCP.) CM will coordinate transport with [facility], will need to stop at his pharmacy. He will need outpatient follow up with Surgical, Palliative and primary care. He will need a t-doc follow up. He is interested in MOW and increased community supports. Referrals were sent to [facility] and [facility]. Social Determinants of Health Screening Will the Patient Participate in the Screening?: Unable to obtain Do you worry about having a steady place to live?: no
--- NOTE | 2024-09-27 09:12 | W.PM.PROGNOT ---
Date of Service Date of service: 09/27/24 Time of Service: 09:12 Assessment and Plan Assessment and plan (1) Bowel obstruction: Status: Acute Assessment and plan: I suppose the most likely explanation for the drainage is some old hematoma, or perhaps fat necrosis from the soft tissue underneath of the skin. This would correlate with a slight decrease in his hemoglobin seen on this morning CBC. Fascial dehiscence also remains a possibility, but now that Jitendra is 7 days out from surgery, I do not think it is worth opening this incision since he is otherwise doing well. For now, we will just do some simple dressings to help reassess if there is any more ongoing drainage. Assuming he feels okay, and his vital signs and labs remain reassuring, then I do not think we need to do anything differently. If anything changes otherwise, I will get a CT scan to help rule out other sources of pathology. Subjective Subjective Interval history since last seen: Jitendra was up using the toilet this morning, around 4 AM, when he noticed chacha brown thin drainage from the incision site. It was dressed with an ABD, and there was just a small amount of scant drainage after that. This morning, the ABD that is in place is completely dry. He recalls having some pain around the incision at that time, but otherwise nothing was out of the ordinary. He feels better now. Exam GI Other: Incision is clean, there is no erythema at all. Is a little bit tender, but not anymore than yesterday. There is no drainage at this time, Objective Last Vital Signs Temp 97.0 F L 09/27/24 07:26 Pulse 104 H 09/27/24 07:26 Resp 16 09/27/24 07:26 BP 118/76 09/27/24 07:26 Pulse Ox 99 09/27/24 07:26 Laboratory Results - last 24 hr 09/27/24 06:25 WBC 7.41 RBC 3.58 L Hgb 8.7 L Hct 26.7 L MCV 75 L MCH 24.3 L MCHC 32.6 RDW 22.6 H Plt Count 197 MPV 10.0 Iron 11 L TIBC 236 L Transferrin % Sat 5 L Time Spent with Patient Time Spent with Patient: 25-34 minutes Time was spent: preparing to see the patient(eg.review tests), ordering medications,tests, procedures, indepentently interpreting results and counseling the patient
--- NOTE | 2024-09-27 11:05 | PT.INTREAT ---
PT Notes Visit Reasons: Bowel Obstruction Inpatient Physical Therapy Treatment Note [facility] Date: 09/27/24 SUBJECTIVE: Pt reporting he had drainage from his incision during the night. He states the binder is now not comfortable so he does not want to wear it. OBJECTIVE: Pt presented in upright position in bed with legs elevated on a pillow. PAIN: 3+/10 abdomen Therapeutic activity ? BED MOBILITY/TRANSFERS? Provided skilled cues and instruction on performance and technique throughout.?supine to sit via sidelying with min A and VCs for sequencing. ? Sit-stand:CG of 1? verbal cues for hand placement to push up from surface ? Stand-sit:SBA of 1 verbal cues for hand placement ? Surface to surface transfers with FWW SBA , with SPC CGA Gait Training (58160l[1]): Direct one-on-one instruction and skilled instruction in: [x] employing an assistive device [x] Provided verbal cues for equipment management and technique [x] Provided instruction in gait pattern ---Facilitated safe and correct performance of level surface ambulation covering a distance of 200 feet x 1 with 1 stand rest using front wheeled walker with SBA. Did not report of any increased pain. Denied headache, chest pain, and lightheadedness throughout activity. Minimal verbal cueing provided for AD management, directional changes, and posture. ---Facilitated safe and correct performance of level surface ambulation covering a distance of 100 feet x 1 with 1 stand rest using SPC with CGA. Did not report of any increased pain. Denied headache, chest pain, and lightheadedness throughout activity. Minimal verbal cueing provided for AD management, directional changes, and posture.One slight LOB to the right while distracted bby others on his right side. Pt demonstrates reciprocal pattern Stairs: 5 steps x 2 with rail CGA step to pattern. stand rest between sets.Pt instructed to perform step to pattern descending leading with right foot down first d/t Pt with decreased control descending 6 steps d/t impaired Right ankle DF and impaired eccentric control ASSESSMENT:? Pt able to perform gait with SPC with CGA one slight LOB to right which he was able to regain without physical assist. Pt easily discouraged by current/ongoing medical issues. Will continue with gait training and stairs with SPC and progress to no device if able in anticipation of discharge to home PLAN: Cont PT 1-2x/day x 7 days /week per POC. TREATMENT CODE/TIME: 45884,[id number] DISCHARGE RECOMMENDATION: Short term rehab vs home with HHPT
--- NOTE | 2024-09-27 12:32 | PGE_ITS ---
Date of Service Date of service: 09/27/24 Time of Service: 12:48 Assessment and Plan Assessment and plan (1) Atrial fibrillation: Status: Chronic Assessment and plan: This was present on initial presentiation. Unclear duration but appears chronic. Started on metoprolol. Rate is just about at goal of 80-110 on metoprolol 150mg/day, will change to succinate in AM. [id number] score is 2 (though he was not being screened for HTN and some BPs high diastolic). We discussed rationale for anticoagulation and alternatives including no treatment and Watchman, he agrees with apixaban, sent to [facility], working with CM on cost. Plan is to start this on discharge as is for correction stroke risk reduction (2) Status post right hemicolectomy: Assessment and plan: Management including discharge timing per surgery. See note regarding wound issue, looks okay to me. Pathology pending still as of 09/27 Loose stool have resolved. Stopped psyllium as caused bloating, but will use colace with iron. appreciate palliative consult. (3) Decreased urine output: Status: Acute Assessment and plan: Normalized with stable renal function. Some LUT symptoms but managing without retention. (4) Anemia: Status: Chronic Assessment and plan: likely some degree of chronic blood loss assciated with colonic mass, had mild microcystic hypochromic anemia on presentation. Slight drop since surgery, possible hematoma around wound. Labs this am confirm iron deficiency, start oral iron. Subjective Subjective Patient reports: denies nausea, vomiting, shortness of breath or fever Interval history since last seen: events: Concern with bleeding/drainage from wound overnight. Dried up this morning, seen by Dr. Mabry He feels okay. He is eating. No BM since loose stools stopped. Energy still not great. Exam Narrative Exam Narrative: GEN: Alert and oriented. No acute distress at rest. LUNGS: CTAB, normal effort CV: Irregularly irregular, rate 90s with no murmurs, gallops, or rubs. ABD: Midline scar dressing off, wound intact without redness, dry, intact. active bowel sounds, soft, nontender and nondistended. EXT: no cyanosis, clubbing, or edema Objective Last Vital Signs Temp 36.1 C L 09/27/24 07:26 Pulse 104 H 09/27/24 07:26 Resp 16 09/27/24 07:26 BP 118/76 09/27/24 07:26 Pulse Ox 99 09/27/24 07:26 Laboratory Results - last 24 hr 09/27/24 06:25 WBC 7.41 RBC 3.58 L Hgb 8.7 L Hct 26.7 L MCV 75 L MCH 24.3 L MCHC 32.6 RDW 22.6 H Plt Count 197 MPV 10.0 Iron 11 L TIBC 236 L Transferrin % Sat 5 L Time Spent with Patient Time Spent with Patient: 25-34 minutes Time was spent: preparing to see the patient(eg.review tests), obtaining and/or reviewing separately otained hiistory, ordering medications,tests, procedures, referring, communicating with other health senior resident care director, indepentently interpreting results, counseling the patient and care coordination
[2024-09-27 13:01] VITALS: BP 114/81; PULSE 117; TEMP 36.5; O2SAT 96
[2024-09-27] MEDS: Ferrous Sulfate 325 MG TAB PO (13:01)
[2024-09-27 15:47] VITALS: BP 103/72; PULSE 106; RESP 16; TEMP 36.6; O2SAT 96
--- NOTE | 2024-09-27 18:06 | PT.INNT ---
PT Notes Visit Reasons: Bowel Obstruction PT attempted to see patient this afternoon but politely refused stating that he is still too fatigued from this morning's activities. He also expressed some apprehension over continued bleeding through incision site which both Nurse Kimberley and Dr. Mabry were aware of and have been monitoring. He has some hesitation about moving too much until further testing is/are made. He added that surgeon is looking into doing a re-scan of his operative site to ensure that postoperative status continues to be stable. Primary PT Kelly was also updated of patient's refusal.
[2024-09-27] MEDS: Docusate Sodium 100 MG CAP PO (19:35)
[2024-09-27 19:36] VITALS: BP 106/71; PULSE 103; RESP 18; TEMP 37.1; O2SAT 98
[2024-09-28] MEDS: HYDROmorphone 2 MG/ML SYR 1 MG IVP ×4 (04:48→20:44)
[2024-09-28 07:15] LABS: HCT 28.2 % (40.0-50.0); HGB 8.9 g/dL (13.5-17.5); MCHC 31.6 % (32.0-36.0); MPV 10.4 fL (8.0-11.0); Platelet Count 236 10^3/uL (130-400); RBC 3.71 10^6/uL (4.36-5.78); RDW-SD 61.5 fL; WBC 8.13 10^3/uL (4.4-10.8)
[2024-09-28 07:41] LABS: MCV 76 fL (80-95); RDW 22.6 % (11.8-14.1)
[2024-09-28 07:52] VITALS: BP 119/90; PULSE 93; RESP 19; TEMP 36.6; O2SAT 97
[2024-09-28] MEDS: Ferrous Sulfate 325 MG TAB PO (08:42)
[2024-09-28] MEDS: Heparin 5,000 UNITS/ML VIAL 5000 UNITS SC ×2 (08:42→23:01)
[2024-09-28] MEDS: Metoprolol 50 MG TAB PO ×3 (08:42→20:38)
[2024-09-28] MEDS: Docusate Sodium 100 MG CAP PO ×2 (08:43→20:38)
[2024-09-28] MEDS: Normal Saline Flush 10 ML SYR IVP ×2 (08:43→20:39)
--- NOTE | 2024-09-28 09:05 | PDOC.CMPRO ---
Date of service: 09/28/24 Time of Service: 15:00 Care Management Progress Note Progress Note Text Progress Note Text: Jitendra is a surgical patient and is s/p right hemicolectomy, day 8 of his admission and pathology results are now available. He has a wound infection with foul smelling drainage, per provider documentation. He was too exhausted to work with PT this afternoon, and shares that it also makes him nervous to move around too much because it increases the drainage. He does not appear to be on an antibiotic or have cultures pending, CM reported this finding to the RN CC and notified the hospitalist. Jitendra may benefit from a follow up with Palliative Care tomorrow. iJtendra does not have a PCP and will need new [facility] services on discharge, CM asked Surgical to follow orders. CM placed referrals to [facility] and [facility] (with his permission) would like to be connected with community resources. His health is declining and he doesn't have any family or friends to lean on in the community. He would benefit with M[facility] and RCT. (Kay from the [facility] reached out to Jitendra, however he wasn't able to talk with her at the time because he was getting his dressing changed. 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 CM will follow and support Discharge Anticipated Barriers to Discharge: None Identified Patient/Family Education Needs: Review discharge instructions, discuss Ask Me Three Transportation: RCT Plan: Anticipate, Jitendra will discharge home with New [facility] RN, PT, OT, RESOURCE DIRECTOR orders (surgical to follow orders, no PCP.) CM will coordinate transport with RCT, will need to stop at his pharmacy. He will need outpatient follow up with Surgical, Palliative and primary care. He will need a t-doc follow up. He is interested in MOW and increased community supports. Referrals were sent to [facility] and [facility]. He will follow. Social Determinants of Health Screening Will the Patient Participate in the Screening?: Unable to obtain Do you worry about having a steady place to live?: no
[2024-09-28 10:06] VITALS: RESP 16; O2SAT 95
--- NOTE | 2024-09-28 10:12 | PGE_ITS ---
Date of Service Date of service: 09/28/24 Time of Service: 10:15 Assessment and Plan Assessment and plan (1) Atrial fibrillation: Status: Chronic Assessment and plan: This was present on initial presentiation. Unclear duration but appears chronic. Started on metoprolol. Rate goal met on metoprolol 150mg/day, transitioning to succinate today [id number] score is 2 (though he was not being screened for HTN and some BPs high diastolic). We discussed rationale for anticoagulation and alternatives including no treatment and Watchman, had agreed to therapy w apixaban, sent to [facility], working with CM on cost. 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 Pathology pending still as of 09/27 Loose stool have resolved. Stopped psyllium d/t c/o bloating, but will continue colace with iron. appreciate palliative consult. (3) Decreased urine output: Status: Acute Assessment and plan: Resolve - stable renal function. LUT symptoms but managing without retention- PCP f/u (4) Anemia: Status: Chronic Assessment and plan: Stable H&H X 48 hours s/p slight drop after Sx -possible hematoma around wound Due to most likely some degree of chronic blood loss associated with colonic mass, had mild microcystic hypochromic anemia on presentation. Labs this am confirm iron deficiency, start oral iron. discussed with Dr. Borden Subjective Subjective Patient reports: no new complaints and tolerating liquids well Interval history since last seen: Denies dizzyness, palpitation, chest pain, shortness of breath, nausea. Exam Narrative Exam Narrative: Constitutional The patient in bed without acute distress Neck: No JVD Neuro:alert and oriented X4 Resp: Unlabored breathing, clear lung bilaterally w decreased bases Cardio: irregular rhythm, S1, S2, no murmur, capillary refill<3 sec., no edema GI: Abdomen is not distended, soft and non tender, bowel sounds are present, midline incision w neeru, not drainage no erythema Extremities: moves all 4 extremities Psych: RASS 0, congruent mood and normal affect. Objective Last Vital Signs Temp 36.6 C 09/28/24 07:52 Pulse 93 H 09/28/24 07:52 Resp 19 09/28/24 07:52 BP 119/90 09/28/24 07:52 Pulse Ox 97 09/28/24 07:52 Laboratory Results - last 24 hr 09/28/24 06:20 WBC 8.13 RBC 3.71 L Hgb 8.9 L Hct 28.2 L MCV 76 L MCH 24.0 L MCHC 31.6 L RDW 22.6 H Plt Count 236 MPV 10.4 Time Spent with Patient Time Spent with Patient: >50 minutes Time was spent: preparing to see the patient(eg.review tests), obtaining and/or reviewing separately otained hiistory, ordering medications,tests, procedures, referring, communicating with other health child care education coordinator, indepentently interpreting results, counseling the patient and care coordination
--- NOTE | 2024-09-28 13:04 | W.PM.PROGNOT ---
Date of Service Date of service: 09/28/24 Time of Service: 13:04 Assessment and Plan Assessment and plan (1) Status post right hemicolectomy: Assessment and plan: Patient continues with good bowel function but has a wound infection, probably an infected seroma running the entire course of the wound. This should drain more easily now and hopefully some healing will start. He is trying very hard to eat his entr?es and is discouraged about his difficulty in ambulating. 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 Patient states he is trying very hard to eat so that he can have a bowel movement and describes how he had diarrhea on daily MiraLAX and now no bowel movement for 2 days. He is passing gas. He has drainage of foul-smelling fluid from his abdominal incision every time he gets up. Exam Narrative Exam Narrative: Patient is alert and oriented Const General: cooperative and frail appearing Resp Auscultation: clear to auscultation bilaterally Cardio Rate: regular rate and not tachycardic Rhythm: regular rhythm GI Inspection: other Other: [place] intact with erythema from the level of the umbilicus towards the upper pole of the wound. With gentle pressure next to the wound, purulent fluid spurts out between several of the neeru. There are normal bowel sounds throughout. The abdomen is nondistended. Later in the day I did return to the bedside with a staple remover, took out much of the upper pole neeru and inserted a cotton tip swab into a cavity. The cavity is superficial and runs from the upper pole to the lower pole of the wound. Several openings were made and I did pry apart the skin edges above the umbilicus and placed a gauze 4 x 4 and the wound, covered with bulky gauze and ABD dressing. Psych Mental Status: mental status grossly normal Mood: congruent mood Affect: normal affect Attitude: cooperative Thought Process: normal Thought Content: normal Insight: insight good Judgment: judgment good Objective Last Vital Signs Temp 36.6 C 09/28/24 07:52 Pulse 93 H 09/28/24 07:52 Resp 16 09/28/24 10:06 BP 119/90 09/28/24 07:52 Pulse Ox 95 09/28/24 10:06 Laboratory Results - last 24 hr 09/28/24 06:20 WBC 8.13 RBC 3.71 L Hgb 8.9 L Hct 28.2 L MCV 76 L MCH 24.0 L MCHC 31.6 L RDW 22.6 H Plt Count 236 MPV 10.4 Time Spent with Patient Time Spent with Patient: 25-34 minutes Time was spent: preparing to see the patient(eg.review tests), obtaining and/or reviewing separately otained hiistory and counseling the patient
[2024-09-28] MEDS: oxyCODONE 5 MG TAB PO (13:48)
[2024-09-28 15:08] VITALS: BP 114/76; PULSE 116; RESP 19; TEMP 37; O2SAT 99
--- NOTE | 2024-09-28 15:34 | PTTR_ITS ---
PT Notes Visit Reasons: Bowel Obstruction Inpatient Physical Therapy Treatment Note [facility] Date: 09/28/24 SUBJECTIVE: Pt reports he is getting his neeru out today and is worried about the incision leaking more once they are out. OBJECTIVE: Pt presented in supine position in bed with legs elevated on a pillow. PAIN: 09/18 abdomen Therapeutic activity ? BED MOBILITY/TRANSFERS? Provided skilled cues and instruction on performance and technique throughout.? supine to sit with SBA ? Sit-stand:SBA of 1? verbal cues for hand placement to push up from surface ? Stand-sit:SBA of 1 verbal cues for hand placement ? Surface to surface transfers with FWW SBA , with SPC SBA sit to supine CGA with increased time pt able to get BLE onto bed Gait Training (29067j[1]): Direct one-on-one instruction and skilled instruction in: [x] employing an assistive device [x] Provided verbal cues for equipment management and technique [x] Provided instruction in gait pattern ---Facilitated safe and correct performance of level surface ambulation covering a distance of 100 feet x 2 with 1 stand rest using SPC with CGA. Did not report of any increased pain. Denied headache, chest pain, and lightheadedness throughout activity. Minimal verbal cueing provided for AD management, directional changes, and posture. Pt demonstrates reciprocal pattern Stairs: 5 steps x 2 with rail SBA step to pattern. stand rest between sets.Pt instructed to perform step to pattern descending leading with right foot down first l ASSESSMENT:? Pt able to perform gait with SPC with CGA without LOB . Pt easily discouraged by current/ongoing medical issues. Will continue with gait training and stairs with SPC and progress to no device if able in anticipation of d ischarge to home when medically appropriate PLAN: Cont PT 1-2x/day x 7 days /week per POC. TREATMENT CODE/TIME: 73830/[id number] DISCHARGE RECOMMENDATION: Short term rehab vs home with HHPT
[2024-09-28 19:27] VITALS: BP 115/76; PULSE 100; RESP 16; TEMP 36.6; O2SAT 96
[2024-09-28] MEDS: Acetaminophen 325 MG TAB 650 MG PO (20:44)
[2024-09-29 03:38] VITALS: BP 102/70; PULSE 95; RESP 15; TEMP 36.7; O2SAT 97
[2024-09-29] MEDS: Acetaminophen 325 MG TAB 650 MG PO ×3 (04:22→19:41)
[2024-09-29] MEDS: HYDROmorphone 2 MG/ML SYR 1 MG IVP ×3 (04:22→20:04)
[2024-09-29] MEDS: Normal Saline Flush 10 ML SYR IVP ×4 (04:23→20:04)
[2024-09-29 07:44] VITALS: BP 116/75; PULSE 100; RESP 16; TEMP 36.3; O2SAT 98
[2024-09-29] MEDS: Metoprolol 50 MG TAB PO (07:48)
[2024-09-29] MEDS: Docusate Sodium 100 MG CAP PO ×3 (07:48→19:41)
[2024-09-29] MEDS: Ferrous Sulfate 325 MG TAB PO (07:48)
--- NOTE | 2024-09-29 08:55 | CMPROGNOTE_ITS ---
Date of service: 09/29/24 Time of Service: 08:55 Care Management Progress Note Progress Note Text Progress Note Text: Jitendra was sitting up in the bed when CM met with him this afternoon. He stated that he is worried that his bills are not being paid while he is here in the hospital. CL offered a tablet so that he could look up the phone numbers of the companies he may need to pay, and possibly contact them and explain his situation. He declined this offer. Jitendra would like a letter on discharge that he can send to the [employer], explaining that he was in the hospital and unable to pay without his computer. He also stated that he had received calls from [employer] and [employer]. He did not answer the calls. He was strongly encouraged to call them back today, but he declined, stating that he would call on Wednesday. Jitendra does not have any supports in the community that he can name. He is worried about HH being able to make it up his driveway in , and is not sure how that would happen if ordered. 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 He will need outpatient follow up with Surgical, Palliative and primary care. He will need a t-doc follow up with [facility]. He is interested in MOW and increased community supports, and referrals were sent to [employer] and [employer] CM will continue to follow. Social Determinants of Health Screening Will the Patient Participate in the Screening?: Unable to obtain Do you worry about having a steady place to live?: no
--- NOTE | 2024-09-29 09:45 | PT.INTREAT ---
PT Notes Visit Reasons: Bowel Obstruction Inpatient Physical Therapy Treatment Note [facility] Date: 09/29/2024 SUBJECTIVE: Pt reports he is feeling better today. He was able to sleep last night but is concerned he has not been able to move his bowels in 2 days. He reports on the stairs down to the bathroom he only has 2x4 vertical studs to hold onto. He expressed he could potentially secure a horizontal board/bar if he is unable to hold onto the studs. OBJECTIVE: Pt presented in supine position in bed with legs elevated on a pillow. dressing in place to his abdomen PAIN: 08/21 abdomen Therapeutic activity ? BED MOBILITY/TRANSFERS? Provided skilled cues and instruction on performance and technique throughout.? supine to sit with SBA ? Sit-stand:SBA of 1? verbal cues for hand placement to push up from surface ? Stand-sit:SBA of 1 verbal cues for hand placement ? Surface to surface transfers with FWW SBA , with SPC SBA sit to supine CGA with increased time pt able to get BLE onto bed Gait Training (77701u[1]): Direct one-on-one instruction and skilled instruction in: [x] employing an assistive device [x] Provided verbal cues for equipment management and technique [x] Provided instruction in gait pattern ---Facilitated safe and correct performance of level surface ambulation covering a distance of 200 feet x2 with 1 stand rest with SBA. Did not report of any increased pain. Denied headache, chest pain, and lightheadedness throughout activity. Minimal verbal cueing provided for directional changes, and posture. Pt demonstrates reciprocal pattern after initial wide DAO with shortened step length. (Not performed this session) Stairs: 5 steps x 2 with rail SBA step to pattern. stand rest between sets.Pt instructed to perform step to pattern descending leading with right foot down first. ASSESSMENT:? Pt initiated gait with SPC then progressed to no AD. Pt able to perform gait without SPC with CGA without LOB . Pt demonstrates wide DAO with impaired step length. He noted numbness initially in his feet upon standing from the bed. As numbness resolved pt demonstrated improved step length with narrower DAO. Pt declined to perform the stairs this session.Pt required assistance for Lower body sock management d/t increase pain with forward flexion trunk and inability to reach down. Pt may benefit from OT consult for Adaptive equipment PLAN: Cont PT 1-2x/day x 7 days /week per POC. TREATMENT CODE/TIME: 50988/[id number] DISCHARGE RECOMMENDATION: home with HHPT and OT
[2024-09-29] MEDS: Heparin 5,000 UNITS/ML VIAL 5000 UNITS SC ×2 (10:12→22:54)
[2024-09-29 14:40] VITALS: BP 122/81; PULSE 110; RESP 18; TEMP 36.5; O2SAT 99
[2024-09-29] MEDS: Metoprolol CR 50 MG TABCR 150 MG PO (14:42)
--- NOTE | 2024-09-29 14:44 | PT.INTREAT ---
PT Notes Visit Reasons: Bowel Obstruction Date: 09/29/2024 PRECAUTIONS: Fall standard SUBJECTIVE: Pt in bed when approached for therapy this afternoon, agreed to participating with therapy OBJECTIVE: ? PAIN: Abdominal pain 02/18 VITALS: monitored by nursing? Therapeutic Activities [id number]: Direct one-on-one instruction in dynamic activities to improve functional performance. ?? BED MOBILITY/TRANSFERS? Rolling L/R: min A Supine-sit: ? CGA? Sit-supine: ? CGA? Sit-stand: ?SBA ? Stand-sit: ?SBA? Bed-Chair:? SBA? Chair-bed: SBA Provided skilled cues and instruction on performance and technique throughout. Gait Training [id number]: Direct one-on-one instruction and skilled instruction in: Employing an assistive device Modified weight-bearing status Movement sequencing Turning and movement with proper form Provided verbal cues for equipment management and technique Provided instruction in gait pattern Patient education regarding pacing and breathing techniques to maximize activity tolerance? GAIT? Assistive Device: ?No AD ? Weight bearing: FWB Assist: ? SBA? Distance:?? ?250' x2 ? Deviation: ? ?slow laney speed, low step height, short step length, stoop forward posture ? STAIRS:? 2 flights of stair up/down 12steps x2 bilateral handrail step over step CGA ? ASSESSMENT:?Pt tolerated activity well, pt stayed in bed after gait training and stair activity, pt setup A for alignment, BLE elevation for pt comfort and safety post session PLAN: Continue with balance training, global strengthening and general conditioning for improved safety, mobility and activity tolerance until pt is ready for DC. TREATMENT CODE/TIME: 86269a0, 99178g2, 25mins ( 2:20-2:45pm)
[2024-09-29] MEDS: Polyethylene Glycol 3350 17 GM PACKET PO (14:47)
--- NOTE | 2024-09-29 14:47 | PGE_ITS ---
Date of Service Date of service: 09/29/24 Time of Service: 14:48 Assessment and Plan Assessment and plan (1) Atrial fibrillation: Start date: 09/29/24 Start time: 14:49 Status: Chronic Assessment and plan: This was present on initial presentiation. Unclear duration but appears chronic. Started on metoprolol tartrate . Rate goal met 80-110 on metoprolol 150mg/day, toprol XL 150 mg started [id number] score is 2 (though he was not being screened for HTN and some BPs high diastolic). We discussed rationale for anticoagulation and alternatives including no treatment and Watchman, had agreed to therapy w apixaban, sent to [facility], working with CM on cost. 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 Stopped psyllium d/t c/o bloating, but will continue colace now TID with iron, has PRN miralax ordered appreciate palliative consult. (3) Decreased urine output: Status: Acute Assessment and plan: Resolve - stable renal function, BMP pending today LUT symptoms but managing without retention- PCP f/u (4) Anemia: Status: Chronic Assessment and plan: Stable H&H X 48 hours s/p slight drop after Sx -possible hematoma around wound f/u CBC pending today Due to most likely some degree of chronic blood loss associated with colonic mass, had mild microcystic hypochromic anemia on presentation. Labs confirmed iron deficiency, ongoing oral iron. discussed with Dr. Borden Subjective Subjective Patient reports: no new complaints and tolerating liquids well Interval history since last seen: Denies dizziness, palpitation, chest pain, shortness of breath, vomiting but nauseous earlier - subsiding s/p BM Exam Narrative Exam Narrative: Constitutional No acute distress Neck: No JVD Neuro:alert and oriented X4 Resp: Unlabored breathing, clear lung bilaterally Cardio:HR 80-110, irregular rhythm, S1, S2, no murmur, no edema GI: Abdomen is not distended, soft and non tender, bowel sounds are present, midline incision w neeru, sero-sanguinous drainage not going through dressing, no erythema to surrounding skin Extremities: moves all 4 extremities Psych: RASS 0, congruent mood and normal affect. Objective Last Vital Signs Temp 36.5 C 09/29/24 14:40 Pulse 110 H 09/29/24 14:40 Resp 18 09/29/24 14:40 BP 122/81 09/29/24 14:40 Pulse Ox 99 09/29/24 14:40 Time Spent with Patient Time Spent with Patient: <25 minutes Time was spent: preparing to see the patient(eg.review tests), obtaining and/or reviewing separately otained hiistory, ordering medications,tests, procedures, referring, communicating with other health career services manager, indepentently interpreting results, counseling the patient and care coordination
--- NOTE | 2024-09-29 16:21 | W.PM.PROGNOT ---
Date of Service Date of service: 09/29/24 Time of Service: 16:21 Assessment and Plan Assessment and plan (1) Bowel obstruction: Status: Acute Assessment and plan: I explained to Jitendra today that the pathology results are back, and the obstructing mass was a colon cancer. Fortunately, 0 of the 24 lymph nodes examined were negative for malignancy. And although the tumor is large, at this point it seems confined to the colon with no significant local spread of disease. I think he has a good understanding of this. Although I would typically refer patient for at least some consideration of chemotherapy, Jitendra's quite clear that he does not have any interest in that. Will continue with wet-to-dry dressing changes for his surgical site wound, and assuming this remains well-controlled in the next few days, hopefully will be able to get him home with visiting nurses. I will also consult occupational health to help with the some activities of daily living. Subjective Subjective Interval history since last seen: Jitendra had quite a bit of discomfort with the incision drainage yesterday, but seems to be more comfortable today. Has been tolerating a diet moving his bowels. He was afebrile through the night. Exam GI Other: The wound is clean, and I do not see any obvious infection. Fascia seems intact. Objective Last Vital Signs Temp 97.7 F 09/29/24 14:40 Pulse 110 H 09/29/24 14:40 Resp 18 09/29/24 14:40 BP 122/81 09/29/24 14:40 Pulse Ox 99 09/29/24 14:40 Time Spent with Patient Time Spent with Patient: 25-34 minutes Time was spent: preparing to see the patient(eg.review tests), ordering medications,tests, procedures, counseling the patient and care coordination
[2024-09-29] MEDS: oxyCODONE 5 MG TAB PO (16:42)
[2024-09-29 16:54] VITALS: O2SAT 99
[2024-09-29 16:58] LABS: Abs Immature Grans 0.02 10^3/uL (0.0-0.06); Absolute Basophil Count 0.02 10^3/uL (0.0-0.2); Absolute Eosinophil Count 0.25 10^3/uL (0.0-0.7); Absolute Lymphocyte Count 0.64 10^3/uL (1.2-3.4); Absolute Monocyte Count 0.39 10^3/uL (0.1-0.8); Absolute Neutrophil Count 4.91 10^3/uL (1.2-6.7); Basophils % 0.3 %; HCT 27.8 % (40.0-50.0); HGB 9.1 g/dL (13.5-17.5); Immature Grans % 0.3 %; Lymphocytes % 10.3 %; MCH 24.5 pg (27.0-33.0); MCHC 32.7 % (32.0-36.0); MCV 75 fL (80-95); MPV 10.4 fL (8.0-11.0); Monocytes % 6.3 %; Neutrophils % 78.8 %; Platelet Count 297 10^3/uL (130-400); RBC 3.72 10^6/uL (4.36-5.78); RDW 22.5 % (11.8-14.1); RDW-SD 61.1 fL; WBC 6.23 10^3/uL (4.4-10.8)
[2024-09-29 17:19] LABS: Anisocytosis 2+; Diff Comment RBC Morph Reviewed; Microcytosis 1+
[2024-09-29 17:20] LABS: Poikilocytes 1+
[2024-09-29 17:48] LABS: Anion Gap 7.6 mmol/L (3-11); BUN 15 mg/dL (7-18); CO2 24.4 mmol/L (21.0-32.0); CREATININE 0.6 mg/dL (0.70-1.30); Calcium 8.6 mg/dL (8.5-10.1); Chloride 101 mmol/L (98-107); Estimated GFR 97.59 (mL/min/1.73m2); Glucose 126 mg/dL (74-106); Sodium 133 mmol/L (136-145)
[2024-09-29 19:30] VITALS: BP 100/69; PULSE 90; RESP 18; TEMP 36.4; O2SAT 96
[2024-09-29 22:51] VITALS: BP 135/73; PULSE 79; RESP 15; TEMP 36.4; O2SAT 95
[2024-09-30] MEDS: oxyCODONE 5 MG TAB PO ×2 (01:48→08:42)
[2024-09-30] MEDS: Acetaminophen 325 MG TAB 650 MG PO ×2 (04:49→14:11)
[2024-09-30] MEDS: HYDROmorphone 2 MG/ML SYR 1 MG IVP (04:49)
[2024-09-30 07:31] VITALS: BP 103/71; PULSE 94; RESP 16; TEMP 36.1; O2SAT 96
[2024-09-30] MEDS: Polyethylene Glycol 3350 17 GM PACKET PO (08:42)
[2024-09-30] MEDS: Docusate Sodium 100 MG CAP PO (08:42)
[2024-09-30] MEDS: Metoprolol CR 50 MG TABCR 150 MG PO (08:42)
[2024-09-30] MEDS: Ferrous Sulfate 325 MG TAB PO (08:42)
[2024-09-30] MEDS: Normal Saline Flush 10 ML SYR IVP ×2 (08:43→20:53)
--- NOTE | 2024-09-30 08:57 | W.PM.PROGNOT ---
Date of Service Date of service: 09/30/24 Time of Service: 08:57 Assessment and Plan Assessment and plan (1) Atrial fibrillation: Start date: 09/29/24 Start time: 14:49 Status: Chronic Assessment and plan: This was present on initial presentiation. Might be chronic. Started on metoprolol tartrate transitioned to succinate rate is controlled goal met 80-110, w/o sustained elevated HR [id number] score is 2 (though he was not being screened for HTN and some BPs high diastolic). We discussed rationale for anticoagulation and alternatives including no treatment and Watchman, had agreed to therapy w apixaban, sent to [facility], working with CM on cost. 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 Stopped psyllium d/t c/o bloating, but will continue colace now down to BID with iron, ongoing PRN miralax ordered Palliative consult ordered. (3) Decreased urine output: Status: Acute Assessment and plan: Resolve - Stable renal function as of 09/29 LUT symptoms but managing without retention- PCP f/u (4) Anemia: Status: Chronic Assessment and plan: Stable H&H s/p slight drop after Sx, draining seroma to Sx site - see Sx notes Due to most likely some degree of chronic blood loss associated with colonic mass, had mild microcystic hypochromic anemia on presentation. Labs confirmed iron deficiency, ongoing oral iron. We will sign off on the patient Sx aware Discussed with Dr. Borden Subjective Subjective Patient reports: no new complaints and tolerating liquids well Interval history since last seen: Denies dizziness, palpitation, chest pain, shortness of breath, vomiting but nauseous earlier - subsiding s/p BM Exam Narrative Exam Narrative: Constitutional No acute distress Neck: No JVD Neuro:alert and oriented X4 Resp: Unlabored breathing, clear lung bilaterally Cardio:HR 80-110, irregular rhythm, S1, S2, no murmur, no edema GI: Abdomen is not distended, soft and non tender, bowel sounds are present, midline incision w neeru, sero-sanguinous drainage not going through dressing, no erythema to surrounding skin Extremities: moves all 4 extremities Psych: RASS 0, congruent mood and normal affect. Objective Last Vital Signs Temp 36.1 C L 09/30/24 07:31 Pulse 94 H 09/30/24 07:31 Resp 16 09/30/24 07:31 BP 103/71 09/30/24 07:31 Pulse Ox 96 09/30/24 07:31 Laboratory Results - last 24 hr 09/29/24 16:40 WBC 6.23 RBC 3.72 L Hgb 9.1 L Hct 27.8 L MCV 75 L MCH 24.5 L MCHC 32.7 RDW 22.5 H Plt Count 297 MPV 10.4 Immature Gran % 0.3 Neutrophils % 78.8 Lymphocytes % 10.3 Monocytes % 6.3 Eosinophils % 4.0 Basophils % 0.3 Nucleated RBC % 0.0 Absolute Neutrophils 4.91 Absolute Lymphocytes 0.64 L Absolute Monocytes 0.39 Absolute Eosinophils 0.25 Absolute Basophils 0.02 RBC Morphology See Below Poikilocytosis 1+ Anisocytosis 2+ Microcytosis 1+ Sodium 133 L Potassium 4.0 Chloride 101 Carbon Dioxide 24.4 Anion Gap 7.6 BUN 15 Creatinine 0.6 L Est GFR (CKD-EPI 2020) 97.59 Glucose 126 H Calcium 8.6 Time Spent with Patient Time Spent with Patient: >50 minutes Time was spent: preparing to see the patient(eg.review tests), obtaining and/or reviewing separately otained hiistory, ordering medications,tests, procedures, referring, communicating with other health respiratory care technician, indepentently interpreting results, counseling the patient and care coordination
--- NOTE | 2024-09-30 10:41 | W.PM.PROGNOT ---
Date of Service Date of service: 09/30/24 Time of Service: 10:41 Assessment and Plan Assessment and plan (1) Colonic mass: Status: Acute Assessment and plan: 79-year-old man who is more than a week out from right hemicolectomy who has a controlled wound infection of his midline laparotomy site. He is stable and doing really well overall. I had a detailed discussion with him about ongoing wound care and the time frames to expect. I think he will probably be packing this wound for at least another 10 to 14 days. It will heal slowly by secondary intention and be just fine in the long run. He has good bowel function going on. We talked about discharge home with the goal in the next 36-48 hours. I am optimistic that when he is discharged he can manage the wound care himself but we will see over the next day or 2 how he does in that regard. Medical team is going to sign off today. We discussed oral management of his A-fib. Overall plan: Continue regular diet + protein supplements Nonnarcotic analgesia DVT prophylaxis Twice daily packing changes Out of bed and ambulate Subjective Subjective Interval history since last seen: No overnight events or clinical problems. He denies really any complaints at the bedside. Pain is not a problem. He is having bowel function. Tolerating a diet. Exam Narrative Exam Narrative: Gen: Non-toxic, comfortable and interactive Neuro: Alert and oriented x3 Psych: Good mood and affect. Good insight and understanding into condition. Chest: Non-labored breathing, no wheezing, no visible shortness of breath. Abdomen: Soft, minimal distention, no tenderness. The midline incision has a 2-3 cm defect with packing in it. I removed the packing which is purulent and malodorous. I replaced it with a single gauze, gently packed. Within this defect there is some scant granulation tissue forming. Tissue appears viable and no fascial defect appreciated on examination. The rest of the wound looks perfect and the neeru are intact. Objective Last Vital Signs Temp 97.0 F L 09/30/24 07:31 Pulse 94 H 09/30/24 07:31 Resp 16 09/30/24 07:31 BP 103/71 09/30/24 07:31 Pulse Ox 96 09/30/24 07:31 Laboratory Results - last 24 hr 09/29/24 16:40 WBC 6.23 RBC 3.72 L Hgb 9.1 L Hct 27.8 L MCV 75 L MCH 24.5 L MCHC 32.7 RDW 22.5 H Plt Count 297 MPV 10.4 Immature Gran % 0.3 Neutrophils % 78.8 Lymphocytes % 10.3 Monocytes % 6.3 Eosinophils % 4.0 Basophils % 0.3 Nucleated RBC % 0.0 Absolute Neutrophils 4.91 Absolute Lymphocytes 0.64 L Absolute Monocytes 0.39 Absolute Eosinophils 0.25 Absolute Basophils 0.02 RBC Morphology See Below Poikilocytosis 1+ Anisocytosis 2+ Microcytosis 1+ Sodium 133 L Potassium 4.0 Chloride 101 Carbon Dioxide 24.4 Anion Gap 7.6 BUN 15 Creatinine 0.6 L Est GFR (CKD-EPI 2020) 97.59 Glucose 126 H Calcium 8.6 Time Spent with Patient Time Spent with Patient: 25-34 minutes Time was spent: preparing to see the patient(eg.review tests), obtaining and/or reviewing separately otained hiistory, ordering medications,tests, procedures, referring, communicating with other health career services manager, indepentently interpreting results, counseling the patient, care coordination and other
[2024-09-30] MEDS: Heparin 5,000 UNITS/ML VIAL 5000 UNITS SC ×2 (11:10→22:09)
--- NOTE | 2024-09-30 12:40 | PT.INTREAT ---
PT Notes Visit Reasons: Bowel Obstruction Date: 09/30/2024 PRECAUTIONS: Fall standard SUBJECTIVE: Pt in bed when approached for therapy this morning, agreed to participating with therapy. Pt reporting he is feeling better and is looking forward to going home. OBJECTIVE: ? PAIN: Abdominal pain 09/18 VITALS: monitored by nursing? Therapeutic Activities 92152: Direct one-on-one instruction in dynamic activities to improve functional performance. ?? BED MOBILITY/TRANSFERS? Rolling L/R: min A Supine-sit: ? CGA?with HOB flat ? Sit-supine: ? CGA?for legs ? Sit-stand: ?SBA ? Stand-sit: ?SBA? Bed-Chair:? SBA? Chair-bed: SBA Provided skilled cues and instruction on performance and technique throughout. Gait Training 65199: Direct one-on-one instruction and skilled instruction in: Employing an assistive device Modified weight-bearing status Movement sequencing Turning and movement with proper form Provided verbal cues for equipment management and technique Provided instruction in gait pattern Patient education regarding pacing and breathing techniques to maximize activity tolerance? GAIT? Assistive Device: ?No AD ? Weight bearing: FWB Assist: ? SBA? Distance:?? ?250' x2 ? Deviation: ? ?slow laney speed, low step height, short step length, stoop forward posture ? STAIRS:? 2 flights of stair up/down 12steps x2 bilateral handrail step over step CGA ? ASSESSMENT:?Pt tolerated activity well, pt able to stay up in chair after session. Patient requires increased time and assistance to rise from supine position with head of bed flat. Patient prefers to transition to sit at edge of bed through long sitting versus side-lying at this time. Patient approached in the afternoon and declined to participate stating he had just returned from walking with COMMUNITY RESOURCE OFFICER. This was confirmed with RENA Henriquez. PLAN: Continue with balance training, global strengthening and general conditioning for improved safety, mobility and activity tolerance until pt is ready for DC. TREATMENT CODE/TIME: [id number], 20167o1, 27mins ( [id number])
[2024-09-30] MEDS: Protein Nutritional Supplement 16 GM 1 OUNCE PACKET PO ×2 (14:11→20:52)
[2024-09-30 15:25] VITALS: BP 88/63; PULSE 82; RESP 16; TEMP 36.1; O2SAT 98
[2024-09-30 16:01] VITALS: BP 91/67
[2024-09-30 20:30] VITALS: RESP 18
[2024-09-30 22:38] VITALS: BP 100/68; PULSE 109; RESP 16; TEMP 36.7; O2SAT 94
[2024-10-01] MEDS: Acetaminophen 325 MG TAB 650 MG PO ×3 (00:51→11:53)
[2024-10-01 07:44] VITALS: BP 111/73; PULSE 104; RESP 16; TEMP 36.8; O2SAT 99
[2024-10-01] MEDS: Protein Nutritional Supplement 16 GM 1 OUNCE PACKET PO ×2 (07:54→20:21)
[2024-10-01] MEDS: Metoprolol CR 50 MG TABCR 150 MG PO (07:54)
[2024-10-01] MEDS: Ferrous Sulfate 325 MG TAB PO (07:54)
[2024-10-01] MEDS: Normal Saline Flush 10 ML SYR IVP ×2 (07:55→20:21)
[2024-10-01] MEDS: Ibuprofen 400 MG TAB PO ×2 (08:03→15:57)
--- NOTE | 2024-10-01 09:24 | W.PM.PROGNOT ---
Date of Service Date of service: 10/01/24 Time of Service: 17:04 Assessment and Plan Assessment and plan (1) Status post right hemicolectomy: Assessment and plan: 79-year-old man postop from right hemicolectomy for obstructing colon cancer. He is stable and doing well. He is having excellent bowel function. His abdominal exam is grossly benign. His minimal distention is pretty underwhelming overall and is probably some amount of baseline considering he has been obstructed for so long. I advised him that it may be a number of weeks, possibly even a few months, before his bowel habits return to what he thinks is normal. Considering he was obstructed for a long time frame, he may have a new normal. Overall plan: Hopeful discharge home tomorrow Twice daily packing changes - it's pretty simple and I am optimistic that he can do the packing changes himself. If he cannot, we can have V-nursing do once daily dressing changes. DVT prophylaxis Non-narcotic analgesia Subjective Subjective Interval history since last seen: No events today. No complaints. He is having good bowel movements. He is tolerating his food. Exam Narrative Exam Narrative: Gen: Non-toxic, comfortable and interactive Neuro: Alert and oriented x3 Psych: Good mood and affect. Good insight and understanding into condition. Chest: Non-labored breathing, no wheezing, no visible shortness of breath. Heart: Irregular Abdomen: Soft, minimally distended (unchanged) with no tenderness anywhere. Dressing intact - clean and dry. Objective Last Vital Signs Temp 98.2 F 10/01/24 07:44 Pulse 104 H 10/01/24 07:44 Resp 16 10/01/24 07:44 BP 111/73 10/01/24 07:44 Pulse Ox 99 10/01/24 07:44 Time Spent with Patient Time Spent with Patient: <25 minutes Time was spent: preparing to see the patient(eg.review tests), obtaining and/or reviewing separately otained hiistory, indepentently interpreting results, counseling the patient and care coordination
[2024-10-01] MEDS: Heparin 5,000 UNITS/ML VIAL 5000 UNITS SC ×2 (11:53→21:51)
--- NOTE | 2024-10-01 12:46 | INPN_ITS ---
PT Notes Visit Reasons: Bowel Obstruction Inpatient Physical Therapy Progress Note Date: 10/01/2024 Dates of Service: 09/24/2024 - 10/01/2024 PRECAUTIONS: Abdominal incision SUBJECTIVE: Patient reporting he had little sleep last night as he was changed in pain med routine. He reports increase discomfort/pain in abdomen since reduction in pain meds however wants to walk and participate in stairs OBJECTIVE PAIN: Abdomen 09/18 BED MOBILITY/TRANSFERS Rolling L/R: Contact-guard assist Supine-sit: Contact-guard assist due to abdominal pain Sit-supine: Supervision Sit-stand: Supervision Stand-sit: Supervision Bed-Chair: Supervision Chair-bed: Supervision GAIT Assistive Device: None Weight bearing: Full Assist: [] Standby assist Distance: 300 feet Deviation: Initially with wide base of support and increased lateral weight shifting however as patient progresses able to increase step length including arm swing and eliminates excessive lateral weight shift and wide base of support. STAIRS: 2 flights of stairs with bilateral rails reciprocal pattern up step to p attern down with contact-guard assist ASSESSMENT: Patient is a?79 year old male admitted on 09/20/24 with a bowel obstruction and is now s/p right hemicolectomy.? Patient presents with pain, decreased strength, impaired functional activity tolerance, decreased functional mobility, decreased balance and difficulty with ambulation. Patient has demonstrated improvement in ability to ambulate without assistive device now. Patient requiring 2 rails at this time for stairs he has been hesitant to attempt stairs with 1 rail or 1 rail and cane. The patient would benefit from skilled inpatient services to improve these impairments to maximize function and safety. Pt will need to be able to ascend and descend 2 flights of stairs (I)ly in order to be d/c to home. Patient is assessed as a Moderate 03972 complexity based on the following: o History: 79-year-old male with history as stated above o Examination: Patient demonstrates impairments in strength, balance, functional activity tolerance and mobility o Presentation: Evolving o Decision Making: Moderate GOALS x 1 week Able to get in/out of bed with supervision only. Not met Able to perform sit to/from stand with supervision only. Goal met revised to independent transfers Able to walk feet with rolling walker with supervision only. Goal met revised to independent ambulation without assistive device greater than 300 feet Able to go up and down 1 flight with 1 rail with supervision to independent. Not met Independent with home exercise program[ not met] PLAN OF CARE/TREATMENT PLAN: 1-2x/day, 7 days/ week x 1 week Plan of care has been reviewed with the MORTGAGE LOAN SPECIALIST providing the service under Physical therapy direction. Initiate physical therapy intervention for strengthening, bed mobility, transfers, gait, stairs, balance training, use of assistive device. DISCHARGE RECOMMENDATIONS: Home with home health PT TREATMENT CODE/TIME: 95064/[id number]
[2024-10-01 19:28] VITALS: BP 101/75; PULSE 87; RESP 20; TEMP 36.1; O2SAT 97
[2024-10-02 07:53] VITALS: BP 121/87; PULSE 94; RESP 18; TEMP 36.5; O2SAT 97
[2024-10-02] MEDS: Ferrous Sulfate 325 MG TAB PO (08:36)
[2024-10-02] MEDS: Metoprolol CR 50 MG TABCR 150 MG PO (08:40)
[2024-10-02] MEDS: Acetaminophen 325 MG TAB 650 MG PO (08:41)
[2024-10-02] MEDS: Normal Saline Flush 10 ML SYR IVP (08:51)
[2024-10-02] MEDS: Protein Nutritional Supplement 16 GM 1 OUNCE PACKET PO (09:30)
[2024-10-02] MEDS: Heparin 5,000 UNITS/ML VIAL 5000 UNITS SC (10:56)
--- NOTE | 2024-10-02 12:37 | PDOC.HHF2F_ITS ---
Home Health Referral Physical Therapist: Check all that apply Increase strength & endurance for safe mobility at home: Ordered To design/establish home maintenance program: Ordered Fall reduction therapy program for patient with history of frequent falls: Ordered Home safety evaluation and teaching/gait training including stair management (if applicable): Ordered Encounter Date and Reason: I certify that a FTF encounter for this patient was performed on October 02, 2024 and that such encounter was related to the primary reason the patient requires home health services. The encounter was conducted in the following manner: * By me as the certifying physician, CAPACITOR INSPECTOR, PA or * By an inpatient physician, CAPACITOR INSPECTOR or PA during an inpatient stay who communicated findings to me, Certification And Authentication I certify that I composed the above information based on my clinical judgment relating to this patient's medical condition and, if applicable, clinical findings communicated to me by the NPP or inpatient physician who performed the FTF encounter. Name of Provider that will be monitoring home health services: Carlin Mabry
--- NOTE | 2024-10-02 12:51 | W.PM.PROGNOT ---
Date of Service Date of service: 10/02/24 Time of Service: 09:00 Assessment and Plan Assessment and plan (1) Status post right hemicolectomy: Assessment and plan: 79-year-old man postop from right hemicolectomy a week and a half ago or so. He is doing great and there are no issues other than minimal wound care that he can do himself at home. Physical therapy has recommended home discharge with home PT. That was ordered. I think he can be discharged home safely on a regular diet Twice daily gauze packing to his small midline wound until he cannot pack it anymore. I do not think he needs home nursing for the wound. He just needs the supplies to be sent with him. We can follow-up with him in the office sometime later this week to see how he is doing. Subjective Subjective Interval history since last seen: No events overnight. Has been having good bowel function. Tolerating his food. He did participate in doing all of his own wound care yesterday and seems upbeat and optimistic about it today. Exam Narrative Exam Narrative: Gen: Non-toxic, comfortable and interactive Neuro: Alert and oriented x3 Psych: Good mood and affect. Good insight and understanding into condition. Chest: Non-labored breathing, no wheezing, no visible shortness of breath. Heart: Irregular Abdomen: Soft, scant distention seems less today, nontender. Dressing is intact. Objective Last Vital Signs Temp 97.7 F 10/02/24 07:53 Pulse 94 H 10/02/24 07:53 Resp 18 10/02/24 07:53 BP 121/87 10/02/24 07:53 Pulse Ox 97 10/02/24 07:53 Time Spent with Patient Time Spent with Patient: <25 minutes Time was spent: preparing to see the patient(eg.review tests), referring, communicating with other health career technology teacher, indepentently interpreting results, counseling the patient and care coordination
--- NOTE | 2024-10-02 13:17 | NUR.NOTE ---
Reviewed documentation by Fabiola Eason, student TELEPHONE OPERATORS SUPERVISOR and agree with the findings. Christiana Jiménez, MSN, RNC-OB, clinical instructor
--- NOTE | 2024-10-02 14:44 | DSE_ITS ---
Date of service: 10/02/24 Time of Service: 14:45 DS: Diagnosis Discharge Diagnosis (1) Status post right hemicolectomy: Asessment and Plan: Stable and ready for discharge Discharge Plan Disposition Patient Disposition: Home W/Home Health Services Condition: Improving Discharge Details Reason For Visit: Bowel Obstruction Admit Date/Time: 09/20/24 17:40 Admit Provider: Carlin Mabry Attending Provider: Carlin Mabry Primary Care Provider: None,None Hospital Course Hospital Course: 79-year-old man presented with an obstructing colon cancer in the right colon. He was taken to surgery and had an open right hemicolectomy performed. He initially did well but did develop a small wound infection that had to be drained. On postoperative day 10 he was set up for discharge home and was able to perform the wound/dressing changes himself which was gentle gauze twice a day. He was discharged with physical therapy assistance. During the hospitalization he was found to have A-fib and the hospitalist service started him on medication. He will follow-up in the surgery office to discuss next steps in regards to colon cancer. Home Meds and New Rx's Prescriptions: New apixaban 5 mg tablet 5 mg PO BID Qty: 180 3RF metoprolol succinate 50 mg Tablet Extended Release 24 Hr 150 mg PO DAILY Qty: 240 1RF Discharge Instructions Additional Instructions: Activity: As tolerated -no heavy lifting/pulling or pushing Diet: As tolerated -focus on increased amounts of protein Medications: Take any and all prescribed medications. Use Tylenol for pain as needed. Bathing: You can shower and your wound can get wet Wound: Change the packing in the wound twice daily. Once in the morning and once at night. You can do this while you are in the shower. After you dry off, packed the wound with a little bit of a gauze. Only put 1 piece of gauze in the wound. Never put multiple pieces. Follow-up: Come see us in the office in the next 3 or 4 days, routinely, to make sure everything is going good. Call us: If you get a fever, have worsening abdominal pain or any other concerns. Activity:: No heavy lifting/pulling Equipment/Supplies:: PT recommendations Diet:: As Tolerated DS: Summary Time Spent with Patient providing and/or coordinating discharge services: Greater than 30 minutes Status at Discharge Functional status at discharge: independent ambulation Overall status at discharge: patient is progressing back to baseline Mental Status: mental status grossly normal Speech and Movement: speech and movement normal Mood: congruent mood Affect: normal affect Quality:SDOH Health Related Social Needs: No Data to Display Exam Psych Mental Status: mental status grossly normal Speech and Movement: speech and movement normal Mood: congruent mood Affect: normal affect DS: Data Vitals/I&O Vitals and I&O: Vital Signs Temperature 97.7 F 10/02/24 07:53 Temperature Source Temporal Artery Scan 10/02/24 07:53 Pulse 94 H 10/02/24 07:53 Pulse Rhythm Irregular 09/20/24 18:27 Pulse 88 09/20/24 17:26 Respiratory Rate 18 10/02/24 07:53 Respiratory Effort Normal 09/20/24 18:27 Respiratory Depth Normal 09/20/24 18:27 Respiratory Pattern Normal 09/20/24 18:27 Blood Pressure 121/87 10/02/24 07:53 Blood Pressure Mean 66 09/20/24 17:26 Blood Pressure Position Sitting 09/20/24 08:38 Pulse Oximetry 97 10/02/24 07:53 Respiratory End-tidal CO2 28 09/20/24 17:26 Oxygen Delivery Method Room Air 10/02/24 07:53 Oxygen Flow Rate 0 10/02/24 07:53 Pain Level 6 10/02/24 11:04 Comment Notifying RN on pulse 09/28/24 15:08 Intake & Output 10/01/24 10/02/24 10/02/24 23:59 11:59 23:59 Intake Total 730 / 730 Output Total 150 / 150 Balance -150 / 30 730 / 730 Intake: IV 10 Oral 720 / 720 Output: Urine 150 / 150 Other: Urine Color Yellow Yellow Urine Appearance Clear Clear Urine Odor Normal Normal Comment Patient voided ind. in the toilet at 4:30 pm. voided in toilet Stool Size Smear Moderate Stool Characteristics Soft Soft Formed Formed Brown PFSH All Active Problems (Updated 09/26/24 @ 13:43 by Tyron Busch) Anemia (Chronic) Decreased urine output (Acute) Atrial fibrillation (Chronic) Advanced care planning/counseling discussion (Acute) Palliative care patient (Acute) Colonic mass (Acute) Bowel obstruction (Acute) Surgical History (Updated 09/25/24 @ 10:03 by Denice Sotomayor) Status post right hemicolectomy (~09/20/24) Dr. Mabry 09/20/24 Social History (Updated 09/24/24 @ 15:18 by Tyron Busch) Smoking/Tobacco Use Status: Never Smoking risk assessment performed?: Yes Alcohol Intake: never Drug use: Never Substance use type: does not use Housing: house Do you feel safe at home: Yes Do you feel safe in your relationship?: Yes Additional Social history: Retired from [employer] in [facility] to [facility] [employer], but didn't have enough savings to finish his house Time Spent with Patient Time Spent with Patient: 45-69 minutes Time was spent: preparing to see the patient(eg.review tests), obtaining and/or reviewing separately otained hiistory, ordering medications,tests, procedures, referring, communicating with other health acute care occupational therapist, indepentently interpreting results, counseling the patient, care coordination and other
--- NOTE | 2024-10-02 15:11 | PT.INTREAT ---
PT Notes Visit Reasons: Bowel Obstruction Date: 10/02/2024 PRECAUTIONS: Fall standard SUBJECTIVE: Patient reports he is going home today OBJECTIVE: ? PAIN: Abdominal pain 4/10 VITALS: monitored by nursing? Therapeutic Activities 54754: Direct one-on-one instruction in dynamic activities to improve functional performance. ?? BED MOBILITY/TRANSFERS? Rolling L/R: Independent Supine-sit: Independent ? Sit-supine: Independent ? Sit-stand: Independent ? Stand-sit: Independent ? Bed-Chair: Supervision without device? Chair-bed: Supervision without device supervision Provided skilled cues and instruction on performance and technique throughout. Gait Training 13164: Direct one-on-one instruction and skilled instruction in: Employing an assistive device Modified weight-bearing status Movement sequencing Turning and movement with proper form Provided verbal cues for equipment management and technique Provided instruction in gait pattern Patient education regarding pacing and breathing techniques to maximize activity tolerance? GAIT? Assistive Device: ?No AD ? Weight bearing: FWB Assist: ? SBA? Distance:?? ?250' x2 ? Deviation: ? low step height, reciprocal pattern stoop forward posture intermittent lateral stepping? STAIRS:? 2 flights of stair up/down 12steps x2 bilateral handrail step over step CGA ? ASSESSMENT:?Patient demonstrates independence with transfers and bed mobility supervision within facility for ambulation without device. Patient declines use of cane for home despite intermittent lateral stepping for balance. PLAN: Continue with balance training, global strengthening and general conditioning for improved safety, mobility and activity tolerance until pt is ready for DC. TREATMENT CODE/TIME: [id number]
--- NOTE | 2024-10-02 15:36 | PDOC.CMDIS ---
Date of service: 10/02/24 Time of Service: 15:36 LACE Index Scoring Tool Questions: Length of Stay (in days): 7 - 13 Was the patient admitted via the E.D.?: Yes Comorbidities: Any Tumor E.D. Visits: 1 Answers: Total Score: 11 Risk of Readmission: High Risk Care Management Discharge Plan Reason for Hospitalization: bowel obstruction, found to have colon mass, s/p right hemicolectomy Discharge Plan: Jitendra is discharged home today with new orders for HH PT. RN was requested by CM, but the surgeon does not believe that Jitendra will require HH RN, as the dressing is straight forward, and he will have close f/u with the surgeon. Jitendra will f/u with surgery on 10/05 and with his new PCP on 10/24/24, and continue per his plan of care. He will transport home via [facility] private vehicle. Jitendra was also given a take-home meal, as he has not been home in almost 2 weeks. Patient/Family Education Needs: Review of discharge instructions, activity, limitations, wound care, and discuss ask me 3. Services Needed at Discharge: Home Health Care Services (PT) [facility] Related Social Needs: No Data to Display
== END 2024-10-02 16:49 | disposition home health service (06) | DRG 330 ==
LOC: ER 12:32 → SUR 13:27 → MS 17:41
PROVIDERS: Family Medicine; Nurse Practitioner Acute Care; Admitting Provider Surgery; Emergency Provider Emergency Medicine; Visit Provider Surgery
PROC: 0DTF0ZZ Resection of Right Large Intestine, Open Approach (ICD-10-PCS; CPT 49320; principal; 2024-09-20 13:15)
DX: C18.2 Malignant neoplasm of ascending colon (principal); K56.691 Other complete intestinal obstruction; L76.34 Postprocedural seroma of skin and subcutaneous tissue following other procedure; T81.41XA Infection following a procedure, superficial incisional surgical site, initial encounter; I48.91 Unspecified atrial fibrillation; R68.81 Early satiety; R63.4 Abnormal weight loss; Z68.22 Body mass index [BMI] 22.0-22.9, adult; N99.0 Postprocedural (acute) (chronic) kidney failure; D50.0 Iron deficiency anemia secondary to blood loss (chronic)
CPT/HCPCS: 44140; 49320; 10140; 00123; 36415; 36416; 80048; 80053; 83690; 85027; 86850; 86900; 86901; 93005; 97116; 97162; 97530; 99223; 99285; 74174; 82378; 83540; 83550; 83605; 83735; 84484; 85025; 85610; 88307; 88309; 88361; 93010; 93306; 99222; 99232; 99233; J0131; J0665; J0666; J0690; J1100; J1171; J1644; J1805; J2371; J2405; J2704; J3010; J3475; J3490

== ENCOUNTER → 2024-10-05 10:55 | Outpatient (BNVA) | payer MEDICARE, SELFPAY | PROVIDERS: PCP Nurse Practitioner Family; Referring Provider Nurse Practitioner Family; Visit Provider Student in an Organized Health Care Education/Training Program | DX: Z90.49 Acquired absence of other specified parts of digestive tract (principal) ==

== ENCOUNTER → 2024-10-13 12:42 | Outpatient (BNVA) | payer MEDICARE, SELFPAY | PROVIDERS: PCP Nurse Practitioner Family; Referring Provider Nurse Practitioner Family; Visit Provider Physical Therapy Assistant | DX: Z48.815 Encounter for surgical aftercare following surgery on the digestive system (principal); R30.0 Dysuria; Z90.49 Acquired absence of other specified parts of digestive tract ==

== ENCOUNTER 2024-10-13 13:40 | Outpatient (REF) | payer MEDICARE, SELFPAY ==
[2024-10-13 14:24] LABS: Bilirubin Negative (Negative); Blood Moderate (Negative); Clarity Clear (Clear); Glucose Negative (Negative); Ketones Negative (Negative); Leukocyte Esterase Moderate (Negative); Nitrite Negative (Negative); Specific Gravity 1.025 (1.005-1.025); Urobilinogen 0.2 mg/dL (Up to 0.2); pH 6.5 (5-8)
[2024-10-13 14:32] LABS: C & S Indicated? Yes; WBC >50 HPF (0-5)
== END 2024-10-13 13:41 | disposition home or self-care (01) ==
LOC: LBN 13:40
PROVIDERS: PCP Nurse Practitioner Family; Referring Provider Physical Therapy Assistant; Visit Provider Physical Therapy Assistant
DX: R30.0 Dysuria (principal)
CPT/HCPCS: 81003; 81015; 87086

== ENCOUNTER 2024-10-24 14:04 | Outpatient (REF) | payer MEDICARE, SELFPAY ==
[2024-10-24 15:28] LABS: HCT 30.8 % (40.0-50.0); HGB 9.7 g/dL (13.5-17.5); MCH 24.7 pg (27.0-33.0); Platelet Count 299 10^3/uL (130-400); RBC 3.93 10^6/uL (4.36-5.78); RDW-SD 58.4 fL; WBC 5.76 10^3/uL (4.4-10.8)
[2024-10-24 16:10] LABS: ALT 43 U/L (16-63); AST 30 U/L (15-37); Albumin 3.4 g/dL (3.4-5.0); Alkaline Phosphatase 120 U/L (46-116); Anion Gap 8.5 mmol/L (3-11); BUN 15 mg/dL (7-18); Bilirubin, Total 0.6 mg/dL (0.2-1.0); CO2 25.5 mmol/L (21.0-32.0); CREATININE 0.8 mg/dL (0.70-1.30); Calcium 9.1 mg/dL (8.5-10.1); Chloride 102 mmol/L (98-107); Estimated GFR 89.47 (mL/min/1.73m2); Glucose 97 mg/dL (74-106); Potassium 4.8 mmol/L (3.5-5.1); Sodium 136 mmol/L (136-145); TSH (W/Ref FT4) 2.91 uIU/mL (0.36-3.74); Vitamin B12 509 pg/mL (193-986)
[2024-10-24 16:40] LABS: MCV 78 fL (80-95)
[2024-10-24 16:41] LABS: MCHC 31.5 % (32.0-36.0); RDW 20.7 % (11.8-14.1)
== END 2024-10-24 14:05 | disposition home or self-care (01) ==
LOC: LBN 14:04
PROVIDERS: PCP Nurse Practitioner Family; Visit Provider Nurse Practitioner Family
DX: R89.9 Unspecified abnormal finding in specimens from other organs, systems and tissues (principal); R20.2 Paresthesia of skin; R35.0 Frequency of micturition; R82.89 Other abnormal findings on cytological and histological examination of urine
CPT/HCPCS: 80053; 85027; 87077; 82607; 84443; 87086; 87186

== ENCOUNTER → 2024-10-27 11:08 | Outpatient (BNVA) | payer MEDICARE, SELFPAY | PROVIDERS: PCP Nurse Practitioner Family; Referring Provider Nurse Practitioner Family; Visit Provider Physical Therapy Assistant | DX: Z48.815 Encounter for surgical aftercare following surgery on the digestive system (principal); Z48.02 Encounter for removal of sutures ==

== ENCOUNTER 2024-11-10 10:20 | Outpatient (CLI) | payer MEDICARE, SELFPAY ==
--- NOTE | 2024-11-10 11:00 | RT.EKG_ITS ---
APPROVED REPORT Exam: Resting ECG Reason for Exam: Afib, lower extremity edema bilaterally Patient Location: O HR:88 bpm ECG Measurements Heart Rate 88 AXIS AR [id number] P [id number] QRSd 85 QRS 89 QT 413 T 8 QTc 500 Conclusion Atrial fibrillation...? atrial activity Borderline right axis deviation...QRS axis ( 81, 90) Low voltage, extremity leads...all extremity leads <0.5mV
== END 2024-11-10 10:21 | disposition home or self-care (01) ==
LOC: DI.KIM 11:11
PROVIDERS: PCP Nurse Practitioner Family; Referring Provider Nurse Practitioner Family; Visit Provider Physical Therapy Assistant
DX: I48.91 Unspecified atrial fibrillation (principal); R60.0 Localized edema; R06.00 Dyspnea, unspecified; I50.22 Chronic systolic (congestive) heart failure
CPT/HCPCS: 93010

== ENCOUNTER 2024-11-10 11:40 | Observation (INO) | payer MEDICARE, SELFPAY ==
[2024-11-10] VITALS (17 sets, daily range): BP systolic 137–162; BP diastolic 75–96; PULSE 71–112; RESP 16–31; TEMP 36.8–36.9; O2SAT 96–100
--- NOTE | 2024-11-10 11:30 | RT.EKG_ITS ---
APPROVED REPORT Exam: Resting ECG Reason for Exam: Dyspnea, CHF Patient Location: E HR:82 bpm ECG Measurements Heart Rate 82 AXIS ID [id number] P [id number] QRSd 85 QRS 89 QT 408 T -4 QTc 478 Conclusion Atrial fibrillation...? atrial activity Low voltage, extremity leads...all extremity leads <0.5mV No Occlusion AK
--- NOTE | 2024-11-10 11:39 | ED.GENADUL_ITS ---
Discharge Plan Disposition Patient Disposition: Admit to [facility] Discharge Details Clinical Impression: Acute HFrEF (heart failure with reduced ejection fraction) Admit Date/Time: 11/10/24 14:01 Admit Provider: Dao Borden Attending Provider: Dao Borden Primary Care Provider: Teodora Huang ED Provider: Tyron Messina [facility] General Date/Time Provider Initiated Documentation: 11/10/24 12:00 . HPI Narrative: MDM This is an overall well-appearing nonhypoxic 79-year-old male with history and physical and bedside ultrasound most consistent with acute heart failure for which patient will require diuretics and hospitalization. Patient is several weeks postop status post abdominal surgery so we will order a D-dimer to rule stratify for PE though the patient is not hypoxic nor tachycardic at the start of her chest pain. No abdominal pain or vomiting to suggest small bowel obstruction. His ECG shows a rate controlled atrial fibrillation with low voltage otherwise no significant pericardial effusion on bedside echocardiogram. He does report recent URI symptoms we will swab for COVID influenza and RSV. No fevers to suggest pneumonia. No vomiting to suggest small bowel obstruction. No pain out of proportion to suggest necrotizing soft tissue infection. Will obtain troponin testing to assess for myocardial injury though my suspicion for ACS is low based on the patient's lack of chest pain. No black or bloody stools to suggest acute GI bleed. Will assess for acute renal failure and electrolyte abnormalities. Patient is not hypoxic to suggest benefit from supplemental oxygen at this point in time. 12:52 PM Comprehensive metabolic panel showing very mild hyponatremia. No TENA. Mildly elevated LFTs ease. No acute electrolyte abnormalities. CBC with no anemia. Persistent microcytic anemia. No thrombocytopenia. Venous blood gas lacks acidemia and hypercarbia. Magnesium within normal limits. Patient will benefit from hospitalization given his emergency heart failure mortality risk grade puts him at 60 points and a 3.3% 7-day mortality risk. He is not in respiratory distress at this point in time so no indication for actually BiPAP. Patient does not have symptomatic crashing pulmonary edema so no indication for IV nitro. 2:[address] angiogram of chest negative for PE for which I gave patient 40 mg IV furosemide along with oral empiric magnesium and potassium. Viral swab negative. I spoke with Dr. Borden who graciously agreed to accept the patient for hospitalization. HPI This is an 79-year-old male with shortness of breath related emergency departm ent via EMS. Patient reports over the past 7 days he has had unintentional 12 pound weight gain. Denies any fevers. Does note that he recently had a cough and URI symptoms which began this morning. No recent falls. No vomiting no abdominal pain. Patient is 3 weeks status post right Dylan colectomy. He has been having normal bowel movements. Denies any routine IV drug use. Has never been on a diuretic in the past. Denies chest pain denies paroxysmal nocturnal dyspnea. Has had no vomiting. Exam General: Well-appearing in no acute distress speaking in complete sentences. Head: Normocephalic, atraumatic. Eye: Extraocular eye movements intact. No conjunctival injection. No scleral icterus. Ear, nose, mouth, throat: Grossly normal inspection. Normal voice, handling secretions normally. Neck: Trachea midline. Cardiovascular: Well-perfused distal extremities. Regular rate and rhythm Respiratory: Nonlabored respiration. Bibasilar crackles. Gastrointestinal: Nondistended abdomen. Musculoskeletal: Mild 1+ bilateral lower extremity edema. Moving all 4 extremities spontaneously. Skin: Normal for age and race, grossly normal temperature and turgor. No acute rash. Neurologic: Alert and appropriate, no apparent acute deficits. Psychiatric: Mood and manner are appropriate. Grooming and personal hygiene are appropriate. Related Data Home Medications ?Medication ?Instructions ?Recorded ?Confirmed apixaban 5 mg tablet 5 mg PO BID #180 tabs 09/25/24 11/10/24 acetaminophen 325 mg capsule 325 mg PO ONCE PRN 10/05/24 11/10/24 metoprolol succinate 50 mg 150 mg PO DAILY 10/13/24 11/10/24 tablet,extended release 24 hr Previous Rx's ?Medication ?Instructions ?Recorded apixaban 5 mg tablet 5 mg PO BID #180 tabs 09/25/24 Allergies Allergy/AdvReac Type Severity Reaction Status Date / Time No Known Allergies Allergy Verified 11/10/24 11:46 General SHAQ: 3 Medical Decision Making Quality:SDOH Health Related Social Needs: No Data to Display PFSH All Active Problems (Updated 11/10/24 @ 14:58 by Tyron Messina MD) Acute HFrEF (heart failure with reduced ejection fraction) (Acute) Colonic mass (Acute) Atrial fibrillation (Chronic) HTN (hypertension) (Chronic) Congestive heart failure of unknown etiology (Acute) Paresthesia of both hands (Acute) Abnormal laboratory test (Acute) Urinary frequency (Acute) Dysuria (Acute) Medical History (Updated 11/10/24 @ 14:58 by Tyron Messina MD) Peripheral neuropathy Basal cell carcinoma removed 1999 & 2000 Anemia Advanced care planning/counseling discussion Palliative care patient Surgical History (Updated 10/25/24 @ 14:19 by Maria Luisa Rangel) History of surgical removal of pilonidal cyst Hx of tonsillectomy Hx of LASIK 2002 Status post right hemicolectomy (~09/20/24) Dr. Mabry 09/20/24 Family History (Updated 10/25/24 @ 14:29 by Maria Luisa Rangel) Father , 82 - Pulmonary hemorrhage No problems noted. Mother , 82 - pulmonary embolism Hypertension Diabetes Obesity Sister Bipolar affective disorder Stroke Brother Schizophrenia Social History (Updated 09/24/24 @ 15:18 by Tyron Busch) Smoking/Tobacco Use Status: Never Smoking risk assessment performed?: Yes Alcohol Intake: never Drug use: Never Substance use type: does not use Housing: house Do you feel safe at home: Yes Do you feel safe in your relationship?: Yes Additional Social history: Retired from [employer] in [facility] to [employer], but didn't have enough savings to finish his house POCUS Exam (ED) Limited Cardiac Exam DATE OF EXAM: 11/10/24 TIME OF EXAM: 12:46 PROVIDER THAT PERFORMED THE STUDY: Tyron Messina IS THIS A REPEAT EXAM DURING THIS ENCOUNTER: no REASON FOR EXAM: Dyspnea VISUALIZED STRUCTURES: Four Chambers, Left ventricle, LVOT and Other (Lungs) structure: Lungs VIEW OBTAINED: Apical 4-Chamber, Parasternal long-axis and Subxiphoid PERTINENT FINDINGS/IMPRESSION: No pericardial effusion and No RV dilation DIFFERENTIAL DIAGNOSES: Aortic outflow track less than 4 cm, moderate squeeze, RV less than LV, no significant pericardial effusion. Left pleural effusion small. Bilateral B- lines. Exam complete
[2024-11-10 12:08] LABS: BE (Venous) -2 mmol/L (-2-3); HCO3 (Venous) 24 mmol/L (23-28); O2 Sat (Venous) 33 %; TCO2 (Venous) 23 mmol/L (24-29); pCO2 (Venous) 44 mmHg (41-51); pH (Venous) 7.34 (7.31-7.41); pO2 (Venous) 25 mmHg
[2024-11-10 12:11] LABS: Abs Immature Grans 0.03 10^3/uL (0.0-0.06); Absolute Basophil Count 0.03 10^3/uL (0.0-0.2); Absolute Eosinophil Count 0.16 10^3/uL (0.0-0.7); Absolute Lymphocyte Count 1.35 10^3/uL (1.2-3.4); Absolute Monocyte Count 0.61 10^3/uL (0.1-0.8); Absolute Neutrophil Count 4.39 10^3/uL (1.2-6.7); Basophils % 0.5 %; Eosinophils % 2.4 %; HCT 30.3 % (40.0-50.0); HGB 9.2 g/dL (13.5-17.5); Immature Grans % 0.5 %; Lymphocytes % 20.5 %; MCH 23.8 pg (27.0-33.0); MCHC 30.4 % (32.0-36.0); MCV 79 fL (80-95); MPV 9.8 fL (8.0-11.0); Monocytes % 9.3 %; Neutrophils % 66.8 %; Platelet Count 240 10^3/uL (130-400); RBC 3.86 10^6/uL (4.36-5.78); RDW 19.3 % (11.8-14.1); RDW-SD 54.9 fL; WBC 6.57 10^3/uL (4.4-10.8)
[2024-11-10 12:37] LABS: ALT 106 U/L (16-63); AST 73 U/L (15-37); Albumin 3.5 g/dL (3.4-5.0); Alkaline Phosphatase 174 U/L (46-116); Anion Gap 9.5 mmol/L (3-11); BUN 14 mg/dL (7-18); CO2 24.5 mmol/L (21.0-32.0); CREATININE 0.7 mg/dL (0.70-1.30); Calcium 8.8 mg/dL (8.5-10.1); Chloride 97 mmol/L (98-107); Estimated GFR 93.15 (mL/min/1.73m2); Glucose 100 mg/dL (74-106); Potassium 4.6 mmol/L (3.5-5.1); Sodium 131 mmol/L (136-145); Total Protein 7.1 g/dL (6.4-8.2); Troponin I 9 ng/L (<or=76)
--- NOTE | 2024-11-10 12:40 | DI.RAD_ITS ---
Exam(s) XR CHEST 2V PA LATERAL EXAM: XR CHEST 2V PA LATERAL CLINICAL HISTORY: sob TECHNIQUE: 2D digital imaging was performed. Two views. AP and lateral COMPARISON: No exams were available for comparison FINDINGS: Overlying monitoring leads. HEART: Enlarged. Aorta: Not dilated. PULMONARY VASCULATURE: Normal. MEDIASTINUM: Unremarkable. LUNGS: Clear. PLEURAL SPACE: No pleural effusion or pneumothorax. BONE:Unremarkable for age. SOFT TISSUES: Unremarkable. IMPRESSION: No acute abnormality. DATA REPOSITORY: RADIATION DOSE DELIVERED:
[2024-11-10 12:57] LABS: Lab Add On Test DONE
[2024-11-10 13:19] LABS: Troponin I 10 ng/L (<or=76)
[2024-11-10 13:27] LABS: D-Dimer 1994 ng/mlFEU (<500)
--- NOTE | 2024-11-10 13:30 | DI.CT_ITS ---
Exam(s) CT CHEST PE CTA EXAM: CT CHEST PE CTA CLINICAL HISTORY: Shortness of breath positive dimer. TECHNIQUE: Imaging Protocol: Axial CT angiography was performed with multi-slice acquisition and mu lti-planar reconstructions as well as axial, coronal and sagittal MIP reconstructions. Computer aided detection (CAD) was utilized. CONTRAST MATERIAL: Intravenous: Omnipaque 350 Contrast volume:70 ml COMPARISON: CT CT ABDOMEN PELVIS CTA from 09/20/2024 CR XR CHEST 2V PA LATERAL from 11/10/2024 FINDINGS: Pulmonary Arteries: No evidence of filling defect to suggest pulmonary emboli. Lower lobe pulmonary veins are not well opacified with contrast. Mediastinum and Juanis: No dominant adenopathy or fluid collection. Pulmonary parenchyma: No consolidation or dominant measurable mass. Emphysematous changes greater in the upper lobes. Increased interlobular septal thickening and left lower lobe bronchial wall thickeni ng, findings are consistent with CHF. Pleura: Tiny right pleural effusion. Pleural calcifications and mild pleural thickening. No pneumot horax. Heart: There is four-chamber enlargement. coronary artery calcifications are seen. Aorta: Thoracic aorta non-dilated. Not opacified with IV contrast. Upper abdomen: No acute findings. Bones: Unremarkable for age. Tubes, Catheters, and Lines: None Soft tissues: Mild bilateral gynecomastia. IMPRESSION: No evidence of pulmonary embolism. Cardiomegaly, small l right pleural effusion and findings suspicious for CHF. RADIATION DOSE DELIVERED: Total DLP DATA REPOSITORY: All CT scans at this facility are submitted to the National Radiology Data Registry (NRDR) Dose Index Registry (DIR) with the [employer] (ACR). RADIATION OPTIMIZATION: All CT scans at this facility use at least one of these dose optimization te chniques: automated exposure control; mA and/or kV adjustment per patient size (includes targeted exa ms where dose is matched to clinical indication); or iterative reconstruction.
[2024-11-10 13:36] LABS: NT-proBNP 2230 pg/mL (<300)
[2024-11-10 13:39] LABS: COVID-19 PCR Negative (Negative); Influenza A PCR Negative (Negative); Influenza B PCR Negative (Negative); RSV PCR Negative (Negative)
[2024-11-10 13:47] LABS: Source Nasopharynx
[2024-11-10] MEDS: Normal Saline - Diluent 50 ML VIAL IJ (13:49)
[2024-11-10] MEDS: Omnipaque 350 MG/ML 100 ML BTL IJ (13:49)
--- NOTE | 2024-11-10 14:02 | HPE_ITS ---
Date of service: 11/10/24 Time of Service: 14:02 Assessment and Plan Assessment and plan (1) Congestive heart failure of unknown etiology: Status: Acute Assessment and plan: This is presents to the emergency department with symptoms of fluid overload Referred to observation for diuresis Monitor intake and output closely Daily weights (2) Atrial fibrillation: Status: Chronic Assessment and plan: Rate is controlled on metoprolol Fully anticoagulated on apixaban (3) HTN (hypertension): Status: Chronic Assessment and plan: Continue metoprolol and routine monitoring of blood pressure (4) Colonic mass: Status: Acute Assessment and plan: He is status post hemicolectomy now Continue routine postoperative care Follow-up for general surgery History of Present Illness Narrative: Please see discharge summary. Review of Systems All systems reviewed & are unremarkable except as noted in HPI and below PFSH All Active Problems (Updated 11/10/24 @ 16:05 by Darlene Narayan NP) Fluid overload (Acute) Acute HFrEF (heart failure with reduced ejection fraction) (Acute) Colonic mass (Acute) Atrial fibrillation (Chronic) HTN (hypertension) (Chronic) Congestive heart failure of unknown etiology (Acute) Paresthesia of both hands (Acute) Abnormal laboratory test (Acute) Urinary frequency (Acute) Dysuria (Acute) Medical History (Updated 11/10/24 @ 16:05 by Darlene Narayan NP) Peripheral neuropathy Basal cell carcinoma removed 1999 & 2000 Anemia Advanced care planning/counseling discussion Palliative care patient Surgical History (Updated 10/25/24 @ 14:19 by Maria Luisa Rangel) History of surgical removal of pilonidal cyst Hx of tonsillectomy Hx of LASIK 2002 Status post right hemicolectomy (~09/20/24) Dr. Mabry 09/20/24 Family History (Updated 10/25/24 @ 14:29 by Maria Luisa Rangel) Father , 82 - Pulmonary hemorrhage No problems noted. Mother , 82 - pulmonary embolism Hypertension Diabetes Obesity Sister Bipolar affective disorder Stroke Brother Schizophrenia Social History (Updated 09/24/24 @ 15:18 by Tyron Busch) Smoking/Tobacco Use Status: Never Smoking risk assessment performed?: Yes Alcohol Intake: never Drug use: Never Substance use type: does not use Housing: house Do you feel safe at home: Yes Do you feel safe in your relationship?: Yes Additional Social history: Retired from [employer] in [facility] to [employer], but didn't have enough savings to finish his house Meds Allergies and Home Medications Allergies Allergy/AdvReac Type Severity Reaction Status Date / Time No Known Allergies Allergy Verified 11/10/24 11:46 Home Medications ?Medication ?Instructions ?Recorded ?Confirmed ?Type apixaban 5 mg tablet 5 mg PO BID #180 tabs 09/25/24 11/10/24 Rx acetaminophen 325 mg capsule 325 mg PO ONCE PRN 10/05/24 11/10/24 History metoprolol succinate 50 mg 150 mg PO DAILY 10/13/24 11/10/24 History tablet,extended release 24 hr furosemide 20 mg tablet (Lasix) 20 mg PO DAILY #2 tabs 11/10/24 Rx potassium chloride 20 mEq 20 meq PO DAILY #2 tabs 11/10/24 Rx tablet,extended release Results Labs 11/10/24 11:58 11/10/24 11:58 Labs: Laboratory Results - last 24 hr 11/10/24 11/10/24 11/10/24 11:58 12:44 12:52 WBC 6.57 RBC 3.86 L Hgb 9.2 L Hct 30.3 L MCV 79 L MCH 23.8 L MCHC 30.4 L RDW 19.3 H Plt Count 240 MPV 9.8 Immature Gran % 0.5 Neutrophils % 66.8 Lymphocytes % 20.5 Monocytes % 9.3 Eosinophils % 2.4 Basophils % 0.5 Nucleated RBC % 0.0 Absolute Neutrophils 4.39 Absolute Lymphocytes 1.35 Absolute Monocytes 0.61 Absolute Eosinophils 0.16 Absolute Basophils 0.03 D-Dimer 1994 H VBG pH 7.34 VBG pCO2 44 VBG pO2 25 VBG HCO3 24 VBG Total CO2 23 L VBG O2 Saturation 33 VBG Base Excess -2 Sodium 131 L Potassium 4.6 Chloride 97 L Carbon Dioxide 24.5 Anion Gap 9.5 BUN 14 Creatinine 0.7 Est GFR (CKD-EPI 2020) 93.15 Glucose 100 Calcium 8.8 Magnesium 2.0 Total Bilirubin 1.0 AST 73 H ALT 106 H Alkaline Phosphatase 174 H Troponin I 9 10 NT-Pro-B Natriuret Pep 2230 H Total Protein 7.1 Albumin 3.5 COVID-19 Source Nasopharynx SARS-CoV-2 (PCR) Negative Influenza Type A (PCR) Negative Influenza Type B (PCR) Negative RSV (PCR) Negative Add-On Test Request DONE 11/10/24 14:43 WBC RBC Hgb Hct MCV MCH MCHC RDW Plt Count MPV Immature Gran % Neutrophils % Lymphocytes % Monocytes % Eosinophils % Basophils % Nucleated RBC % Absolute Neutrophils Absolute Lymphocytes Absolute Monocytes Absolute Eosinophils Absolute Basophils D-Dimer VBG pH VBG pCO2 VBG pO2 VBG HCO3 VBG Total CO2 VBG O2 Saturation VBG Base Excess Sodium Potassium Chloride Carbon Dioxide Anion Gap BUN Creatinine Est GFR (CKD-EPI 2020) Glucose Calcium Magnesium Total Bilirubin AST ALT Alkaline Phosphatase Troponin I Cancelled NT-Pro-B Natriuret Pep Total Protein Albumin COVID-19 Source SARS-CoV-2 (PCR) Influenza Type A (PCR) Influenza Type B (PCR) RSV (PCR) Add-On Test Request Last Vital Signs Temp 36.9 C 11/10/24 11:41 Pulse 77 11/10/24 13:01 Resp 23 11/10/24 13:01 BP 156/84 H 11/10/24 13:01 Pulse Ox 96 11/10/24 12:50 Time Spent Time spent with Patient: 55-74 minutes Time was spent: preparing to see the patient(eg.review tests), obtaining and/or reviewing separately otained hiistory, ordering medications,tests, procedures, indepentently interpreting results and counseling the patient
[2024-11-10] MEDS: Furosemide 40 MG/4 ML VIAL IVP (14:41)
[2024-11-10] MEDS: Magnesium Oxide 400 MG TAB PO (14:41)
[2024-11-10] MEDS: Potassium Bicarbonate/Cit AC 25 MEQ TABLET.EFF 50 MEQ PO (14:44)
--- NOTE | 2024-11-10 15:12 | W.PC.ACHO ---
Registration Status: Primary Language: Preferred Language: ED Information & Data Chief Complaint SOB/SuddenOnset 11/10/24 11:45 Chief Complaint SOB/SuddenOnset 11/10/24 11:41 Triage Note internal medicine, abd surg 11/10/24 11:41 3 weeks ago, afib since then , BLE pitting edema since then, 12 lbs weight gain in 7 days, crackles bilaterally lower lobes. no cp, pt reports SOB only w/ exertion Medical / Surgical History (Last Updated 10/26/24 @ 16:31 by Christina Tate RN) Peripheral neuropathy Basal cell carcinoma Anemia Advanced care planning/counseling discussion Palliative care patient (Last Updated 10/25/24 @ 14:19 by Maria Luisa Rangel) History of surgical removal of pilonidal cyst Hx of tonsillectomy Hx of LASIK Status post right hemicolectomy (~09/20/24) Most Recent Vital Signs Temperature 36.9 C 11/10/24 11:41 Pulse 72 11/10/24 13:40 Pulse 95 H 11/10/24 15:00 Respiratory Rate 31 H 11/10/24 15:00 Respiratory Effort Normal 11/10/24 11:57 Respiratory Depth Normal 11/10/24 11:57 Respiratory Pattern Normal 11/10/24 11:57 Blood Pressure 148/75 H 11/10/24 13:40 Blood Pressure Mean 110 11/10/24 13:01 Pulse Oximetry 98 11/10/24 13:40 Oxygen Delivery Method Room Air 11/10/24 11:41 Oxygen Flow Rate 0 11/10/24 11:41 Allergies No Known Allergies Allergy (Verified 11/10/24 11:46) Active Medications Generic Name Dose Route Start Last Admin Trade Name Chungq PRN Reason Stop Dose Admin Iohexol 100 ml 11/10/24 14:00 11/10/24 13:49 Omnipaque 350 Mg/Ml 100 Ml Btl IJ 12/10/24 23:59 70 ml DIRECTED ALEXEI Administration Sodium Chloride 50 ml 11/10/24 14:11/10/24 13:49 Normal Saline - Diluent 50 Ml Vial IJ 50 ml .FOR DI USE ALEXEI Administration IV IV Catheter Type [Left Saline Lock Antecubital] IV Catheter Gauge [Left 20 Antecubital] Diagnostics 11/10/24 11/10/24 11/10/24 Range/Units 14:43 12:52 12:44 WBC (4.4-10.8) 10^3/uL RBC (4.36-5.78) 10^6/uL Hgb (13.5-17.5) g/dL Hct (40.0-50.0) % MCV (80-95) fL MCH (27.0-33.0) pg MCHC (32.0-36.0) % RDW (11.8-14.1) % Plt Count (130-400) 10^3/uL MPV (8.0-11.0) fL Immature Gran % % Neutrophils % % Lymphocytes % % Monocytes % % Eosinophils % % Basophils % % Nucleated RBC % (0.0-0.3) % Absolute Neutrophils (1.2-6.7) 10^3/uL Absolute Lymphocytes (1.2-3.4) 10^3/uL Absolute Monocytes (0.1-0.8) 10^3/uL Absolute Eosinophils (0.0-0.7) 10^3/uL Absolute Basophils (0.0-0.2) 10^3/uL D-Dimer (<500) ng/mlFEU VBG pH (7.31-7.41) VBG pCO2 (41-51) mmHg VBG pO2 mmHg VBG HCO3 (23-28) mmol/L VBG Total CO2 (24-29) mmol/L VBG O2 Saturation % VBG Base Excess (-2-3) mmol/L Sodium (136-145) mmol/L Potassium (3.5-5.1) mmol/L Chloride (98-107) mmol/L Carbon Dioxide (21.0-32.0) mmol/L Anion Gap (3-11) mmol/L BUN (7-18) mg/dL Creatinine (0.70-1.30) mg/dL Est GFR (CKD-EPI 2020) (mL/min/1.73m2) Glucose (74-106) mg/dL Calcium (8.5-10.1) mg/dL Magnesium (1.8-2.4) mg/dL Total Bilirubin (0.2-1.0) mg/dL AST (15-37) U/L ALT (16-63) U/L Alkaline Phosphatase (46-116) U/L Troponin I Cancelled 10 (<or=76) ng/L NT-Pro-B Natriuret Pep 2230 H (<300) pg/mL Total Protein (6.4-8.2) g/dL Albumin (3.4-5.0) g/dL COVID-19 Source Nasopharynx SARS-CoV-2 (PCR) Negative (Negative) Influenza Type A (PCR) Negative (Negative) Influenza Type B (PCR) Negative (Negative) RSV (PCR) Negative (Negative) Add-On Test Request DONE 11/10/24 Range/Units 11:58 WBC 6.57 (4.4-10.8) 10^3/uL RBC 3.86 L (4.36-5.78) 10^6/uL Hgb 9.2 L (13.5-17.5) g/dL Hct 30.3 L (40.0-50.0) % MCV 79 L (80-95) fL MCH 23.8 L (27.0-33.0) pg MCHC 30.4 L (32.0-36.0) % RDW 19.3 H (11.8-14.1) % Plt Count 240 (130-400) 10^3/uL MPV 9.8 (8.0-11.0) fL Immature Gran % 0.5 % Neutrophils % 66.8 % Lymphocytes % 20.5 % Monocytes % 9.3 % Eosinophils % 2.4 % Basophils % 0.5 % Nucleated RBC % 0.0 (0.0-0.3) % Absolute Neutrophils 4.39 (1.2-6.7) 10^3/uL Absolute Lymphocytes 1.35 (1.2-3.4) 10^3/uL Absolute Monocytes 0.61 (0.1-0.8) 10^3/uL Absolute Eosinophils 0.16 (0.0-0.7) 10^3/uL Absolute Basophils 0.03 (0.0-0.2) 10^3/uL D-Dimer 1994 H (<500) ng/mlFEU VBG pH 7.34 (7.31-7.41) VBG pCO2 44 (41-51) mmHg VBG pO2 25 mmHg VBG HCO3 24 (23-28) mmol/L VBG Total CO2 23 L (24-29) mmol/L VBG O2 Saturation 33 % VBG Base Excess -2 (-2-3) mmol/L Sodium 131 L (136-145) mmol/L Potassium 4.6 (3.5-5.1) mmol/L Chloride 97 L (98-107) mmol/L Carbon Dioxide 24.5 (21.0-32.0) mmol/L Anion Gap 9.5 (3-11) mmol/L BUN 14 (7-18) mg/dL Creatinine 0.7 (0.70-1.30) mg/dL Est GFR (CKD-EPI 2020) 93.15 (mL/min/1.73m2) Glucose 100 (74-106) mg/dL Calcium 8.8 (8.5-10.1) mg/dL Magnesium 2.0 (1.8-2.4) mg/dL Total Bilirubin 1.0 (0.2-1.0) mg/dL AST 73 H (15-37) U/L ALT 106 H (16-63) U/L Alkaline Phosphatase 174 H (46-116) U/L Troponin I 9 (<or=76) ng/L NT-Pro-B Natriuret Pep (<300) pg/mL Total Protein 7.1 (6.4-8.2) g/dL Albumin 3.5 (3.4-5.0) g/dL COVID-19 Source SARS-CoV-2 (PCR) (Negative) Influenza Type A (PCR) (Negative) Influenza Type B (PCR) (Negative) RSV (PCR) (Negative) Add-On Test Request Intake and Output - 24 Hour Total 11/10/24 11:37 thru 11/10/24 15:12 Output Total 500 Balance -500 Weight 74.7 kg Output: Other 500 Falls Risk Assessment History of Falls No History 11/10/24 11:57 Contributing Factors No Factors 11/10/24 11:57 Ambulatory Aids Independent 11/10/24 11:57 Tubes/Lines None 11/10/24 11:57 Gait Evaluation No gait disturbance 11/10/24 11:57 Cognition No cognitive impairment 11/10/24 11:57 Fall Total Score 0 11/10/24 11:57 Level of Risk Standard/Low Risk 11/10/24 11:57 Problems (Last Updated 10/26/24 @ 16:31 by Christina Tate RN) Acute HFrEF (heart failure with reduced ejection fraction) (Acute) Colonic mass (Acute) Atrial fibrillation (Chronic) HTN (hypertension) (Chronic) Congestive heart failure of unknown etiology (Acute) v v v v v v v v v Sending and/or Receiving Nurses: Please use comment section below to note any information pertinent to the patient hand-off not included above. Information / Comments: Report received from: Mely COONEY at [id number]
--- NOTE | 2024-11-10 15:55 | W.PM.DS.N ---
Date of service: 11/10/24 Time of Service: 15:55 DS: Diagnosis Discharge Diagnosis (1) Congestive heart failure of unknown etiology: Status: Acute (2) Atrial fibrillation: Status: Chronic (3) HTN (hypertension): Status: Chronic (4) Colonic mass: Status: Acute Discharge Plan Disposition Patient Disposition: Home Condition: Stable Discharge Details Reason For Visit: Heart failure Admit Date/Time: 11/10/24 14:01 Admit Provider: Dao Borden Attending Provider: Dao Borden Primary Care Provider: Teodora Huang [facility] Hospital Course: This is an 79-year-old male patient with past medical history significant for hypertension atrial fibrillation fully anticoagulated on apixaban who presented to his postoperative surgical follow-up appointment today as scheduled. He has been having no postoperative abdominal complications, reporting bowels and bladder functioning well, no fever, chest pain or cough, but during the appointment did make mention of his feet being swollen, some mild shortness of breath with exertion and a 12 pound weight gain. He was advised to increase his fluid intake postoperatively which he has been doing. he had no chest pain and no similar history. He was referred to the emergency department for evaluation. In the emergency department his workup was consistent with fluid overload. He was ruled out for PE and ACS. He was given IV Lasix in the emergency department and diuresed 1200 cc of urine, clear yellow. He had no oxygen requirements and has been hemodynamically stable. He states he has been doing very well otherwise since his surgery. Last echocardiogram from September 2024 was reviewed EF 50%. Echocardiogram is not available today nor will be over the weekend. Did discuss continued hospitalization versus outpatient treatment and patient does wish to be discharged home. He will be given Lasix 20 mg and potassium 20 meq to take Wednesday and Wednesday and will have repeat blood work done Wednesday he was advised to call his PCPs office first thing Wednesday to schedule this follow-up appointment to discuss whether further lasix is required or not. he was advised to return sooner for new or worsening symptoms. He was advised to have his labs drawn early next week prior to his follow up appointment. discussed with DR Borden Home Meds and New Rx's Prescriptions: New furosemide [Lasix] 20 mg tablet 20 mg PO DAILY Qty: 2 0RF potassium chloride 20 mEq tablet extended release 20 meq PO DAILY Qty: 2 0RF Continued acetaminophen 325 mg capsule 325 mg PO ONCE PRN metoprolol succinate 50 mg tablet extended release 24 hr 150 mg PO DAILY apixaban 5 mg tablet 5 mg PO BID Qty: 180 3RF Discharge Instructions Instructions: Heart failure Additional Instructions: take lasix and potassium as prescribed tomorrow and wednesday morning. continue to monitor your weight daily. call primary care provider office for follow up next week. have your labs drawn prior to this appointment. return to the emergency department sooner for new or worsening symptoms Referrals: Teodora Huang APRN [Primary Care Provider] - 11/15/24 11:00 am Activity:: Activity as Tolerated Equipment/Supplies:: No Equipment Needed Diet:: Low Sodium Discharge Orders Discharge Orders: Discharge Order (Routine); Ordered 11/10/24 Ordered By: Darlene Narayan Other Ambulatory Orders: Basic Metabolic Panel (Routine) Timeframe: 2 Days Facility: [facility] - Location: Laboratory Outpatient - [facility] Ordered By: Darlene Narayan DS: Summary Time Spent with Patient providing and/or coordinating discharge services: Greater than 30 minutes Status at Discharge Functional status at discharge: independent ambulation Overall status at discharge: patient is progressing back to baseline Mental Status: mental status grossly normal Speech and Movement: speech and movement normal Mood: congruent mood Affect: normal affect Quality:SDOH Health Related Social Needs: No Data to Display Exam Narrative Exam Narrative: Well-appearing male younger than stated age in no acute distress standing in his room. Head is atraumatic eyes nonicteric noninjected oral mucosas moist neck supple full range of motion cardiovascular regular rate and rhythm no murmurs appreciated lungs are clear bilaterally with no rales in the bases no wheezing. Abdomen with a midline incision which is well-healed. No erythema or drainage. No abdominal pain belly is soft moves all extremities does have bilateral peripheral edema +1. Neurologic is awake alert oriented no focal deficits psychiatric appropriate mood and affect Psych Mental Status: mental status grossly normal Speech and Movement: speech and movement normal Mood: congruent mood Affect: normal affect DS: Data Vitals/I&O Vitals and I&O: Vital Signs Temperature 36.8 C 11/10/24 15:36 Temperature Source Temporal Artery Scan 11/10/24 15:36 Pulse 89 11/10/24 15:36 Pulse 95 H 11/10/24 15:00 Respiratory Rate 16 11/10/24 15:36 Respiratory Effort Normal 11/10/24 11:57 Respiratory Depth Normal 11/10/24 11:57 Respiratory Pattern Normal 11/10/24 11:57 Blood Pressure 137/94 H 11/10/24 15:36 Blood Pressure Mean 108 11/10/24 15:36 Pulse Oximetry 98 11/10/24 15:36 Oxygen Delivery Method Room Air 11/10/24 15:36 Oxygen Flow Rate 0 11/10/24 15:36 Pain Level 0 11/10/24 15:36 Intake & Output 11/09/24 11/10/24 11/10/24 23:59 11:59 23:59 Intake Total 240 / 240 Output Total 1075 / 1075 Balance -835 / -835 Weight 74.7 kg 72.938 kg Intake: Oral 240 / 240 Output: Urine 575 / 575 Other 500 / 500 Other: Urine Color Pale Yellow Urine Odor None Data Completed and Pending Labs on day of discharge: Labs from last 24 hours 11/10/24 14:43: Troponin I Cancelled 11/10/24 12:52: Troponin I 10, NT-Pro-B Natriuret Pep 2230 H, COVID-19 Source Nasopharynx, SARS-CoV-2 (PCR) Negative, Influenza Type A (PCR) Negative, Influenza Type B (PCR) Negative, RSV (PCR) Negative 11/10/24 12:44: Add-On Test Request DONE 11/10/24 11:58: WBC 6.57, RBC 3.86 L, Hgb 9.2 L, Hct 30.3 L, MCV 79 L, MCH 23.8 L, MCHC 30.4 L, RDW 19.3 H, Plt Count 240, MPV 9.8, Immature Gran % 0.5, Neutrophils % 66.8, Lymphocytes % 20.5, Monocytes % 9.3, Eosinophils % 2.4, Basophils % 0.5, Nucleated RBC % 0.0, Absolute Neutrophils 4.39, Absolute Lymphocytes 1.35, Absolute Monocytes 0.61, Absolute Eosinophils 0.16, Absolute Basophils 0.03, D-Dimer 1994 H, VBG pH 7.34, VBG pCO2 44, VBG pO2 25, VBG HCO3 24, VBG Total CO2 23 L, VBG O2 Saturation 33, VBG Base Excess -2, Sodium 131 L, Potassium 4.6, Chloride 97 L, Carbon Dioxide 24.5, Anion Gap 9.5, BUN 14, Creatinine 0.7, Est GFR (CKD-EPI 2020) 93.15, Glucose 100, Calcium 8.8, Magnesium 2.0, Total Bilirubin 1.0, AST 73 H, ALT 106 H, Alkaline Phosphatase 174 H, Troponin I 9, Total Protein 7.1, Albumin 3.5 PFSH All Active Problems (Updated 11/10/24 @ 16:05 by Darelne Narayan NP) Fluid overload (Acute) Acute HFrEF (heart failure with reduced ejection fraction) (Acute) Colonic mass (Acute) Atrial fibrillation (Chronic) HTN (hypertension) (Chronic) Congestive heart failure of unknown etiology (Acute) Paresthesia of both hands (Acute) Abnormal laboratory test (Acute) Urinary frequency (Acute) Dysuria (Acute) Medical History (Updated 11/10/24 @ 16:05 by Darlene Narayan NP) Peripheral neuropathy Basal cell carcinoma removed 1999 & 2000 Anemia Advanced care planning/counseling discussion Palliative care patient Surgical History (Updated 10/25/24 @ 14:19 by Maria Luisa Rangel) History of surgical removal of pilonidal cyst Hx of tonsillectomy Hx of LASIK 2003 Status post right hemicolectomy (~09/20/24) Dr. Mabry 09/20/24 Family History (Updated 10/25/24 @ 14:29 by Maria Luisa Rangel) Father , 82 - Pulmonary hemorrhage No problems noted. Mother , 82 - pulmonary embolism Hypertension Diabetes Obesity Sister Bipolar affective disorder Stroke Brother Schizophrenia Social History (Updated 09/24/24 @ 15:18 by Tyron Busch) Smoking/Tobacco Use Status: Never Smoking risk assessment performed?: Yes Alcohol Intake: never Drug use: Never Substance use type: does not use Housing: house Do you feel safe at home: Yes Do you feel safe in your relationship?: Yes Additional Social history: Retired from [email or web address] in [employer] [facility] to [facility], but didn't have enough savings to finish his house Time Spent with Patient Time Spent with Patient: 45-69 minutes Time was spent: preparing to see the patient(eg.review tests), obtaining and/or reviewing separately otained hiistory, ordering medications,tests, procedures, indepentently interpreting results and counseling the patient
--- NOTE | 2024-11-10 16:21 | NUR.NOTE ---
Patient arrived via stretcher to room by ED RN, patient AxOx4, VSS, sats stable on room air, pt says he feels fine and wouldnt have come in today if his PCP office didn't encourage him. He endorses 12 lb weight gain recently and had some mild CHAND, he does have +1 pitting edema to his BLE. Patient was seen by Darlene Narayan ASSISTANT PUBLIC DEFENDER at bedside would spoke with the patient and reports she saw his recent echo showing a normal EF. Patient wants to go home and ASSISTANT PUBLIC DEFENDER is comfortable with this as patient is stable, not hypoxic and reporting improved symptoms after IV lasix 40mg. Patient has notably put out about 1.5L since being at [facility]. Patient is steady on his feet and is desiring to drive back home. Plan disucssed with ASSISTANT PUBLIC DEFENDER is to have patient take a lasix pill Wednesday morning and Wednesday morning, then get labs drawn at [facility] outpatient lab on Wednesday. These labs will go to his PCP which they can discuss on Wednesday when he sees his provider. This RN spoke with fish hatchery manager at [facility] as there was some concern for patient's discharge right after admission. This RN relayed that the ASSISTANT PUBLIC DEFENDER did not feel that this was an new CHF dx situation and instead was a post op fluid overload concern. This RN also relayed that the ASSISTANT PUBLIC DEFENDER only wants to give the patient a few doses of lasix to avoid any renal damage or electrolye imbalances/dehydration and wants to check labs Wednesday for this reason. The office was concerned this pt couldn't see a provider until Wednesday and requested he receive more lasix daily until then but it was relayed by this RN that the ASSISTANT PUBLIC DEFENDER was adament she not overdose him on lasix until then and he only get a few doses. F/u appointment was made for Wednesday and lab order placed for this Wednesday. Patient educated on all of this information along with s/s to report back to ED for and when to come in for labs as well as f/u appointment with Teodora Huang APRN. Patient understands and knows to poultry picker lasix and potassium prescription at pharmacy. PIV removed. All belongings packed up and sent with patient. Patient waiting on RCT ride coordination. Nursing Note:
== END 2024-11-10 16:51 | disposition home or self-care (01) ==
LOC: ER 14:58 → MS 15:21
PROVIDERS: Admitting Provider Hospitalist; Emergency Provider Emergency Medicine; PCP Nurse Practitioner Family; Visit Provider Hospitalist
DX: I11.0 Hypertensive heart disease with heart failure (principal); I50.21 Acute systolic (congestive) heart failure; I48.20 Chronic atrial fibrillation, unspecified; E87.1 Hypo-osmolality and hyponatremia; K63.89 Other specified diseases of intestine; Z90.49 Acquired absence of other specified parts of digestive tract; R30.0 Dysuria; R35.0 Frequency of micturition; D64.9 Anemia, unspecified; G62.9 Polyneuropathy, unspecified
CPT/HCPCS: 00123; 36415; 71275; 80053; 82805; 87637; 93005; 93308; 96374; 99285; 71046; 83735; 83880; 84484; 85025; 85379; 93010; 99223; G0378; J1938; J3490

== ENCOUNTER 2024-11-13 16:51 | Outpatient (CLI) | payer MEDICARE, SELFPAY ==
[2024-11-13 16:39] LABS: Anion Gap 6.9 mmol/L (3-11); BUN 18 mg/dL (7-18); CO2 27.1 mmol/L (21.0-32.0); CREATININE 0.8 mg/dL (0.70-1.30); Calcium 8.9 mg/dL (8.5-10.1); Chloride 101 mmol/L (98-107); Estimated GFR 89.47 (mL/min/1.73m2); Glucose 102 mg/dL (74-106); Potassium 4.3 mmol/L (3.5-5.1); Sodium 135 mmol/L (136-145)
[2024-11-13 16:52] LABS: NT-proBNP 1794 pg/mL (<300)
[2024-11-13 17:44] LABS: Vitamin B12 650 pg/mL (193-986)
== END 2024-11-13 16:52 | disposition home or self-care (01) ==
LOC: LBO 16:52
PROVIDERS: Nurse Practitioner Acute Care; PCP Nurse Practitioner Family; Visit Provider Nurse Practitioner Family
DX: E87.70 Fluid overload, unspecified; I48.91 Unspecified atrial fibrillation; I10 Essential (primary) hypertension; I50.9 Heart failure, unspecified
CPT/HCPCS: 36415; 80048; 82607; 83880

== ENCOUNTER 2024-11-16 00:59 | Outpatient (CLI) | payer MEDICARE, SELFPAY ==
--- NOTE | 2024-11-16 07:00 | DI.US_ITS ---
Exam(s) US EXTREMITY VENOUS BI EXAM: US EXTREMITY VENOUS BI CLINICAL HISTORY: elevated d-dimer, acute systolic CHF,r79.89,r74.01 TECHNIQUE: Grayscale, color, and doppler imaging of the deep venous system of both lower extremities was performed. COMPARISON: US US ABDOMEN LIMITED from 11/16/2024 FINDINGS: There is no evidence of intraluminal thrombus and there is normal compression and augmentation demons trated within the common femoral veins, femoral veins, and popliteal veins of both lower extremities. In the calves the interrogated veins also exhibit normal compression/ augmentation properties. The greater saphenous veins also appear patent as do the saphenofemoral junctions bilaterally.. IMPRESSION: 1. No ultrasound evidence of DVT in either lower extremity. DATA REPOSITORY:
--- NOTE | 2024-11-16 07:00 | DI.US_ITS ---
Exam(s) US ABDOMEN LIMITED EXAM: US ABDOMEN LIMITED CLINICAL HISTORY: elevated transaminases,r74.01 TECHNIQUE: Ultrasound abdomen performed using standard protocol. COMPARISON: US POCUS EXAM from 11/10/2024 US US EXTREMITY VENOUS BI from 11/16/2024 FINDINGS: LIVER: Hyperechoic indicating steatosis. There no discrete focal hepatic lesions identified. Liver also exhibits mildly nodular contour indicating an element of cirrhosis. GALLBLADDER/BILIARY: There is a mobile 11 millimeter gallstone in the gallbladder lumen. There is al so a smaller 4 mm polyp on the anterior wall. There appears to be a tiny amount of fluid between the gallbladder and right hepatic lobe. The common hepatic duct isnot dilated, measuring 4mm at the level of shiraz hepatis. PANCREAS: There is no evidence of pancreatic mass nor dilatation of the pancreatic duct. RIGHT KIDNEY:Measures 11.5 cm length. In the superior pole there is an area of abnormal echogenicity which may possibly represent a solid nodule measuring 2.5 x 2.3 cm. No other focal findings in the right kidney. IMPRESSION: 1. Cholelithiasis and gallbladder polyp. Some subtle suggestion of some fluid interposed between th e gallbladder and right hepatic lobe. Patient was not tender over this area during scanning today. The CBD is not dilated. 2. Possible solid nodule in the right kidney superior pole measuring 2.5 x 2.3 cm. 3. Recommend follow-up CT scan. DATA REPOSITORY:
== END 2024-11-16 01:19 ==
LOC: DI 00:59
PROVIDERS: PCP Nurse Practitioner Family; Visit Provider Family Medicine
DX: R74.01 Elevation of levels of liver transaminase levels (principal); R79.89 Other specified abnormal findings of blood chemistry
CPT/HCPCS: 76705; 93970

== ENCOUNTER 2024-11-17 13:46 | Outpatient (CLI) | payer MEDICARE, SELFPAY ==
--- NOTE | 2024-11-17 13:45 | RT.EKG_ITS ---
APPROVED REPORT Exam: Resting ECG Reason for Exam: afib Patient Location: O HR:85 bpm ECG Measurements Heart Rate 85 [place] [id number] P [id number] QRSd 93 QRS 103 QT 360 T -22 QTc 428 Conclusion Atrial fibrillation... Anterior infarct, old...Q >40mS, abnormal ST-T, V2-V5 Baseline wander in lead(s) V1 Low voltage Nonspecific ST-T abnormalities
== END 2024-11-17 13:47 | disposition home or self-care (01) ==
LOC: DI.CARD 13:50
PROVIDERS: PCP Nurse Practitioner Family; Referring Provider Nurse Practitioner Family; Visit Provider Internal Medicine Cardiovascular Disease
DX: I48.91 Unspecified atrial fibrillation (principal)
CPT/HCPCS: 93010

== ENCOUNTER → 2024-11-17 13:46 | Outpatient (BNVA) | payer MEDICARE, SELFPAY | PROVIDERS: PCP Nurse Practitioner Family; Referring Provider Nurse Practitioner Family; Visit Provider Internal Medicine Cardiovascular Disease | DX: R74.01 Elevation of levels of liver transaminase levels (principal); I50.21 Acute systolic (congestive) heart failure; R79.89 Other specified abnormal findings of blood chemistry | CPT/HCPCS: 99214 ==

== ENCOUNTER 2024-11-22 01:56 | Outpatient (CLI) | payer MEDICARE, SELFPAY ==
--- NOTE | 2024-11-22 07:15 | DI.CT_ITS ---
Exam(s) CT ABDOMEN WO/W EXAM: CT ABDOMEN WO/W CLINICAL HISTORY: 2.5 cm right renal nodule noted on abd US,n28.89 TECHNIQUE: Imaging Protocol: Axial computed tomography images with coronal and sagittal reformatted images were created and reviewed CONTRAST MATERIAL: Intravenous: Omnipaque 350 contrast volume:100 mL Oral: No COMPARISON: CT CT ABDOMEN PELVIS CTA from 09/20/[address] CHEST PE CTA from 11/10/2024 US US ABDOMEN LIMITED from 11/16/2024 FINDINGS: ABDOMEN: Lung Bases: There is a small right pleural effusion. Liver: Normal density. No measurable mass. Portal, Superior Mesenteric, and Splenic Veins: Unremarkable. Gallbladder and Biliary Tract: Gallstones are present. There is no biliary ductal dilatation. Pancreas: Normal density, no abnormal calcifications or inflammatory process. Spleen: Normal. Adrenals: No masses seen. Kidneys: Normal size, contour and axis. No radiodense stones or obstructive uropathy. No masses seen. Abdominal Aorta: Abdominal portion non-dilated. Atherosclerotic calcification is present. Bowel: The patient appears to be status post right colectomy. There is no evidence of bowel wall thi ckening or obstruction. Peritoneal Cavity: There is a small amount of perihepatic ascites. No free air. Lymph Nodes: Within normal limits. Bones: Age-appropriate degenerative changes are seen in the spine. No aggressive osseous lesions are seen. Soft Tissues: Unremarkable. IMPRESSION: 1. No evidence of an adrenal or renal mass. No evidence of a right upper quadrant mass. 2. Small right pleural effusion. 3. Small perihepatic ascites. 4. Findings suggestive right colectomy. 5. Cholelithiasis. No biliary ductal dilatation. RADIATION DOSE DELIVERED: 574.4mGy.cm Total DLP !Error Total DLP DATA REPOSITORY: All CT scans at this facility are submitted to the National Radiology Data Registry (NRDR) Dose Index Registry (DIR) with the [employer] (ACR). RADIATION OPTIMIZATION: All CT scans at this facility use at least one of these dose optimization te chniques: automated exposure control; mA and/or kV adjustment per patient size (includes targeted exa ms where dose is matched to clinical indication); or iterative reconstruction.
[2024-11-22] MEDS: Omnipaque 350 MG/ML 100 ML BTL IJ (11:17)
[2024-11-22] MEDS: Normal Saline - Diluent 50 ML VIAL IJ (11:17)
== END 2024-11-22 02:16 ==
LOC: DI 01:56
PROVIDERS: PCP Nurse Practitioner Family; Visit Provider Family Medicine
DX: K80.80 Other cholelithiasis without obstruction (principal)
CPT/HCPCS: 74170; J3490

== ENCOUNTER 2024-12-18 01:46 | Outpatient (CLI) | payer MEDICARE, SELFPAY ==
--- NOTE | 2024-12-18 14:00 | DI.US_ITS ---
APPROVED REPORT EXAM: Comprehensive 2D, Doppler, and color-flow Echocardiogram Patient Location: Out-Patient Culinary Director: Hernesto Estrada RDCS (AE) Indications: CHF Conclusion Normal left ventricular wall thickness and chamber size. EF is 50 to 55%. There are no segmental wall motion abnormalities Aortic valve is sclerotic and trileaflet Findings are unchanged compared to previous echo from September 2024 Wall motion Left Ventricle The left ventricle is normal size. The left ventricular systolic function is normal. The left ventric ular ejection fraction is within the normal range. There is normal left ventricular wall thickness. T here is normal LV segmental wall motion. There is no ventricular septal defect visualized. LVEF is 50 -55%. Right Ventricle Right ventricle is moderately dilated. Right ventricle is hypokinetic. Atria Left atrium is moderately dilated. Right atrium is moderately dilated. Aortic Valve The Aortic valve is sclerotic. Aortic valve is trileaflet. Pericardium There is no pericardial effusion. 2D Dimensions IVSD d PLAX 1.03 cm M: 0.6-1.2 LVPW d PLAX 0.97 cm M: 0.6 - 1.2 LVID d PLAX 4.74 cm M: 4.2 - 5.8 LVDs 3.70 cm M: 2.5 - 4.0 LV EF Teichholz 44.1 % FS 21.83 % LV EDV (Teich) 104.3 mL LV ESV (Teich) 58.2 mL Stroke Vol Index (Teich) 25.57 Auto EF LV EDV A4C 113.5 mL LV EDV A2C 114.2 mL LV EDV BP 113.7 mL LV ESV A4C 61.4 mL LV ESV A2C 58.0 mL LV ESV BP 59.2 mL LVEF(%) A4C 45.9 % LVEF(%) A2C 49.2 % LVEF(%) BP 47.9 % LV SV A4C 52.2 ml LV SV A2C 56.2 ml LV SV BP 54.5 ml LV CO A4C 3.7 L/min LV CO A2C 4.4 L/min LV CO BP 4.1 L/min HR A4C 71.01 BPM HR A2C 78.26 BPM LV EDV Index (BP) LA Volume LA Length A4C 6.4 cm LA Length A2C 6.8 cm LA Area A4C s 26.43 cm2 LA Area A2C s 24.46 cm2 LA Vol A4C A-L 92.80 mL LA Vol A2C A-L 74.81 mL LA Vol Biplane A-L 85.9 mL LA Vol/BSA A4C A-L LA Vol/BSA A2C A-L LA Vol/BSA BP A-L 47.7 mL/m2 LA Vol A4C MOD 85.7 mL LA Vol A2C MOD 72.2 mL LA Vol BP MOD 80.1 mL RA Volume RA Area A4C 29.0 cm2 RA ESV A4C (A-L) 111.7mL RA Vol/BSA A4C A-L RA Length A4C 6.4 cm RA ESV A4C (MOD) 109.8mL
== END 2024-12-18 02:06 ==
LOC: DI 01:46
PROVIDERS: PCP Nurse Practitioner Family; Visit Provider Internal Medicine Cardiovascular Disease
DX: I50.30 Unspecified diastolic (congestive) heart failure (principal); I35.0 Nonrheumatic aortic (valve) stenosis
CPT/HCPCS: 93306; 93308

== ENCOUNTER 2024-12-18 09:26 | Outpatient (CLI) | payer MEDICARE, SELFPAY ==
[2024-12-18 10:22] LABS: NT-proBNP 741 pg/mL (<300)
[2024-12-18 10:42] LABS: Vitamin B12 444 pg/mL (193-986)
== END 2024-12-18 09:27 | disposition home or self-care (01) ==
LOC: LBO 09:26
PROVIDERS: PCP Nurse Practitioner Family; Visit Provider Family Medicine
DX: I50.21 Acute systolic (congestive) heart failure (principal); R20.2 Paresthesia of skin
CPT/HCPCS: 36415; 93306; 93308; 82607; 83880

== ENCOUNTER → 2024-12-29 12:33 | Outpatient (BNVA) | payer MEDICARE, SELFPAY | PROVIDERS: PCP Nurse Practitioner Family; Referring Provider Nurse Practitioner Family; Visit Provider Internal Medicine Cardiovascular Disease | DX: I48.20 Chronic atrial fibrillation, unspecified (principal); I10 Essential (primary) hypertension; I50.33 Acute on chronic diastolic (congestive) heart failure; E87.79 Other fluid overload | CPT/HCPCS: 99214 ==

== ENCOUNTER → 2025-01-02 14:05 | Outpatient (BNVA) | payer MEDICARE, SELFPAY | PROVIDERS: PCP Nurse Practitioner Family; Referring Provider Nurse Practitioner Family; Visit Provider Podiatrist | DX: L60.3 Nail dystrophy (principal); M79.674 Pain in right toe(s); M79.675 Pain in left toe(s); B35.1 Tinea unguium; D50.9 Iron deficiency anemia, unspecified; L60.2 Onychogryphosis; R09.89 Other specified symptoms and signs involving the circulatory and respiratory systems; I83.93 Asymptomatic varicose veins of bilateral lower extremities; L65.9 Nonscarring hair loss, unspecified; R23.8 Other skin changes; L60.8 Other nail disorders | CPT/HCPCS: 11719 ==

== ENCOUNTER → 2025-03-29 13:22 | Outpatient (BNVA) | payer MEDICARE, SELFPAY | PROVIDERS: PCP Nurse Practitioner Family; Referring Provider Nurse Practitioner Family; Visit Provider Internal Medicine Cardiovascular Disease | DX: I50.33 Acute on chronic diastolic (congestive) heart failure (principal); I48.20 Chronic atrial fibrillation, unspecified; Z79.01 Long term (current) use of anticoagulants | CPT/HCPCS: 99214 ==